=== PATIENT | male | born 1935 | race Caucasian/White ===

== ENCOUNTER 2017-02-13 07:10 | Observation (INO) ==
--- NOTE | 2017-02-13 07:27 | Emergency Department Note ---
Disposition Clinical Impression: Hypertension, Altered mental status Disposition: Admitted As Inpatient Altered Mental Status HPI - General Chief Complaint: ED Altered Mental Status Stated Complaint: confusion/staggering/slurred speech Time Seen by Provider: 02/13/17 07:20 Source: patient, family Mode of arrival: EMS Limitations: no limitations Nursing Notes Reviewed: Yes Vital Signs Reviewed: Yes - History of Present Illness HPI Narrative: Patient woke up this morning his said he was having trouble finding his words the patient says he felt off balance. He complained of a slight headache no chest pain shortness of breath or weakness is admitted to he denies having symptoms like this before. MD complaint: other (difficulty finding his words and of balance) Timing confirmed by: spouse Pain Severity: mild Consistency of Symptoms: waxing and waning Associated symptoms: Reports: denies other symptoms. Denies: chest pain, fever , nausea/vomiting, shortness of breath - Related Data Home Medications Medication Instructions Recorded Confirmed GlipiZIDE XL (24 HR) [Glucotrol XL] 5 mg PO BID 05/29/15 02/13/17 Insulin DETEMIR [Levemir] 15 unit SQ BID 05/29/15 02/13/17 Promethazine [Phenergan] 25 mg PO BID PRN 05/29/15 02/13/17 metFORMIN [Glucophage] 500 mg PO BID 05/29/15 02/13/17 Previous Rx's Medication Instructions Recorded Acetaminophen [Tylenol] 650 mg PO Q6HR PRN #30 tablet 05/22/16 Metoprolol [Lopressor] 50 mg PO BID #60 tablet 05/22/16 Oxycodone HCl/Acetaminophen 1 tab PO Q6H PRN #20 tablet 05/22/16 [Percocet 10-325 mg Tablet] Sucralfate [Carafate] 1 gm PO QIDAC #90 tablet 05/22/16 Zolpidem [Ambien] 5 mg PO HS PRN #10 tablet 05/22/16 amLODIPine [Norvasc] 10 mg PO DAILY #30 tablet 05/22/16 hydrALAZINE [HydrALAZINE] 75 mg PO TID #90 tablet 05/22/16 hydroCHLOROthiazide 12.5 mg PO DAILY #30 tablet 05/22/16 [Hydrochlorothiazide] Allergies Allergy/AdvReac Type Severity Reaction Status Date / Time morphine Allergy See Verified 02/13/17 07:37 Comments All systems ED: reviewed and negative except as stated. Review of Systems: As Per HPI Constitutional: Denies: fever, chills, weakness, weight change Eyes: Denies: eye pain, eye discharge, vision change ENT ED: Denies: ear pain, throat pain, dental pain, hearing loss, epistaxis, congestion, dysphagia Cardiovascular: Denies: chest pain, palpitations, dyspnea on exertion, edema, syncope Respiratory: Denies: cough, dyspnea, wheezes, hemoptysis, stridor Gastrointestinal: Denies: abdominal pain, nausea, vomiting, diarrhea, constipation, hematemesis, melena, hematochezia Genitourinary: Denies: urgency, dysuria, frequency, hematuria Musculoskeletal: Denies: back pain, neck pain, arthralgia, myalgia Integumentary: Denies: rash, abrasion, lesions Neurological: Denies: headache, weakness, numbness, paresthesias, confusion, abnormal gait, vertigo Psychiatric: Denies: anxiety, depression, suicidal thoughts, homicidal thoughts , auditory hallucinations, visual hallucinations Hematological/Lymphatic: Denies: easy bleeding, easy bruising Allergic/Immunologic: Denies: facial swelling, urticaria Past Medical History - Past Medical History Attestation: Yes The following information was validated with the patient. Source: patient Medical history: Reports: coronary artery disease, diabetes, GI bleed, hypertension, myocardial infarction Surgical history: Reports: cholecystectomy, other Psychiatric history: Reports: no psych history - Social History Smoking Status: Former smoker Smokeless Tobacco Status: No Alcohol use: Reports: none Drug use: Reports: none Physical Exam - General Limitations: no limitations General appearance: alert, in no apparent distress - Head Head exam: atraumatic, normocephalic, normal inspection - Eye Eye exam: Present: normal appearance, PERRL, EOMI - ENT ENT exam: normal exam, normal oropharynx, mucous membranes moist - Neck Neck exam: Present: normal inspection, full ROM, trachea midline - Chest Chest inspection: Present: normal inspection, symmetric chest wall rise - Respiratory Respiratory exam: Present: normal lung sounds bilaterally - Cardiovascular Cardiovascular exam: Present: regular rate, normal rhythm, normal heart sounds - Abdominal Exam Abdominal exam: Present: soft, Non-Tender. Absent: tenderness, distention, guarding, rebound, rigidity - Rectal Exam Rectal exam: Present: deferred - Extremities Exam Extremities exam: Present: normal inspection - Neurological Exam Neurological exam: Present: alert, oriented X3, CN II-XII intact - Expanded Neurological Exam Speech: Present: expressive aphasia (mild intermittent) Motor strength - LUE: 5/5 Motor strength - RUE: 5/5 Motor strength - LLE: 5/5 Motor strength - RLE: 5/5 - Psychiatric Psychiatric exam: Present: normal affect - Skin Skin exam: Present: warm, dry, intact. Absent: rash Course Vital Signs Temperature 97.3 F L 02/13/17 07:13 Pulse Rate 100 02/13/17 07:13 Respiratory Rate 17 02/13/17 07:13 Blood Pressure 203/129 02/13/17 07:13 O2 Sat by Pulse Oximetry 95 02/13/17 07:13 Temperature 97.9 F 02/13/17 09:47 Pulse Rate 83 02/13/17 09:47 Respiratory Rate 18 02/13/17 09:47 Blood Pressure 182/93 02/13/17 09:47 O2 Sat by Pulse Oximetry 95 02/13/17 09:47 Oxygen Delivery Oxygen Delivery Nasal Cannula Altered Mental Status - Lab Data Lab results reviewed: Yes I reviewed the patient's lab results. Result diagrams: 02/13/17 08:15 02/13/17 08:15 Lab Results 02/13/17 02/13/17 02/13/17 Range/Units 08:15 08:15 08:15 WBC 9.5 (4.3-11.1) K/mcL RBC 4.65 (4.19-5.50) M/mcL Hgb 13.8 (12.9-16.9) g/dL Hct 41.5 (37.5-50.1) % MCV 89.2 (83.0-100.0) fL MCH 29.7 (28.0-33.3) pg MCHC 33.3 (31.6-35.5) g/dL RDW 13.2 (11.5-14.5) % Plt Count 168 (140-400) K/mcL MPV 11.5 (9.4-12.4) fL Sodium 140 (136-145) mEq/L Potassium 3.7 (3.5-4.5) mEq/L Chloride 103 (98-109) mEq/L Carbon Dioxide 23 (19-29) mEq/L BUN 17 (8-26) mg/dL Creatinine 1.40 H (0.72-1.25) mg/dL Est GFR ( Amer) 59 L (> 60) Est GFR (Non-Af Amer) 49 L (> 60) BUN/Creatinine Ratio 12 (6-26) Glucose 340 H (70-99) mg/dL Calculated Osmolality 305 H (280-300) Calcium 9.0 (8.6-10.8) mg/dL Total Bilirubin 0.5 (0.2-1.2) mg/dL AST 19 (5-34) Units/L ALT 26 (0-55) Units/L Alkaline Phosphatase 47 (38-126) Units/L Troponin I 0.02 (0-0.03) ng/mL Serum Total Protein 7.3 (6.0-8.3) g/dL Albumin 3.6 (3.5-5.0) g/dL Globulin 3.7 H (2.4-3.5) g/dL Albumin/Globulin Ratio 1.0 L (1.1-2.2) Urine Color (Yellow) Urine Clarity (Clear) Urine pH (5.0-8.0) pH Units Ur Specific [place] (1.010-1.025) Urine Protein (Neg-Trace) mg/dL Urine Glucose (UA) (Normal) mg/dL Urine Ketones (Negative) mg/dL Urine Blood (Negative) Urine Nitrite (Negative) Urine Bilirubin (Negative) Urine Urobilinogen (Normal) mg/dL Ur Leukocyte Esterase (Negative) Urine Microscopic RBC (0-3) per hpf Urine Microscopic WBC Ur Squamous Epith Cells (None-Few) per lpf Urine Bacteria (None-Few) per hpf Urine Mucus (Few) Ur Culture Indicated? (NO) 02/13/17 Range/Units 08:44 WBC (4.3-11.1) K/mcL RBC (4.19-5.50) M/mcL Hgb (12.9-16.9) g/dL Hct (37.5-50.1) % MCV (83.0-100.0) fL MCH (28.0-33.3) pg MCHC (31.6-35.5) g/dL RDW (11.5-14.5) % Plt Count (140-400) K/mcL MPV (9.4-12.4) fL Sodium (136-145) mEq/L Potassium (3.5-4.5) mEq/L Chloride (98-109) mEq/L Carbon Dioxide (19-29) mEq/L BUN (8-26) mg/dL Creatinine (0.72-1.25) mg/dL Est GFR ( Amer) (> 60) Est GFR (Non-Af Amer) (> 60) BUN/Creatinine Ratio (6-26) Glucose (70-99) mg/dL Calculated Osmolality (280-300) Calcium (8.6-10.8) mg/dL Total Bilirubin (0.2-1.2) mg/dL AST (5-34) Units/L ALT (0-55) Units/L Alkaline Phosphatase (38-126) Units/L Troponin I (0-0.03) ng/mL Serum Total Protein (6.0-8.3) g/dL Albumin (3.5-5.0) g/dL Globulin (2.4-3.5) g/dL Albumin/Globulin Ratio (1.1-2.2) Urine Color Yellow (Yellow) Urine Clarity Clear (Clear) Urine pH 6.5 (5.0-8.0) pH Units Ur Specific [place] 1.015 (1.010-1.025) Urine Protein 100 H (Neg-Trace) mg/dL Urine Glucose (UA) 500 H (Normal) mg/dL Urine Ketones Negative (Negative) mg/dL Urine Blood Trace-lysed H (Negative) Urine Nitrite Negative (Negative) Urine Bilirubin Negative (Negative) Urine Urobilinogen Normal (Normal) mg/dL Ur Leukocyte Esterase Negative (Negative) Urine Microscopic RBC 0-3 (0-3) per hpf Urine Microscopic WBC Test Not Performed Ur Squamous Epith Cells Few (None-Few) per lpf Urine Bacteria Few (None-Few) per hpf Urine Mucus Few (Few) Ur Culture Indicated? NO (NO) - Radiology Data Radiology results reviewed: Yes I reviewed the patient's radiology results. - EKG Data EKG attestation: Yes I reviewed and interpreted this EKG. EKG results narrative: EKG shows a sinus rhythm with occasional PACs. Possible left ventricular hypertrophy QTc interval 375 at 426 ms respectively FL and T axis 15-9 and 10 degrees TPA Checklist - LKW: 3-4.5 hrs Add. Warnings/Precautions Patient/family understanding: The patient/family members have been counseled and understood the risk, benefit , and alternatives of treatment.
[2017-02-13] MEDS ORDERED: *HR* Labetalol 20 MG/4 ML SYRINGE IVP ONE (07:30)
[2017-02-13] MEDS ORDERED: Ondansetron 4 MG/2 ML VIAL IVP ONE (08:08)
[2017-02-13 08:23] LABS: Hematocrit 41.5 % (37.5-50.1); Hemoglobin 13.8 g/dL (12.9-16.9); Mean Corpuscular HGB Conc 33.3 g/dL (31.6-35.5); Mean Corpuscular Hemoglobin 29.7 pg (28.0-33.3); Mean Corpuscular Volume 89.2 fL (83.0-100.0); Mean Platelet Volume 11.5 fL (9.4-12.4); Platelet Count 168 K/mcL (140-400); Red Blood Count 4.65 M/mcL (4.19-5.50); Red Cell Distribution Width 13.2 % (11.5-14.5)
[2017-02-13 08:47] LABS: Albumin 3.6 g/dL (3.5-5.0); Bilirubin,Total 0.5 mg/dL (0.2-1.2); Globulin 3.7 g/dL (2.4-3.5); Potassium 3.7 mEq/L (3.5-4.5); Total Protein 7.3 g/dL (6.0-8.3)
[2017-02-13 08:50] LABS: Bilirubin,Urine Negative (Negative); Blood,Urine Trace-lysed (Negative); Clarity,Urine Clear (Clear); Color,Urine Yellow (Yellow); Glucose,Urine (UA) 500 mg/dL (Normal); Ketones,Urine Negative (Negative); Leukocyte Esterase,Urine Negative (Negative); Nitrite,Urine Negative (Negative); PH,Urine 6.5 pH Units (5.0-8.0); Protein,Urine 100 mg/dL (Neg-Trace); Specific Gravity,Urine 1.015 (1.010-1.025); Urobilinogen,Urine Normal (Normal)
[2017-02-13 08:56] LABS: Bacteria,Urine Few per hpf (None-Few); Mucus,Urine Few (Few); RBC,Urine 0-3 per hpf (0-3); Squamous Epithelial Cell,Urine Few per lpf (None-Few)
[2017-02-13] MEDS ORDERED: Naloxone 0.4 MG/ML INJ IVP PRN (09:10)
[2017-02-13] MEDS ORDERED: Acetaminophen 325 MG TABLET PO PRN (09:10)
[2017-02-13] MEDS ORDERED: 0.9 % Sodium Chloride 1,000 ML IVC SCH (09:15)
[2017-02-13] MEDS ORDERED: Ondansetron 4 MG/2 ML VIAL IVP PRN (11:19)
[2017-02-13] MEDS ORDERED: Ondansetron 4 MG/2 ML VIAL ONE (11:22)
[2017-02-13] MEDS ORDERED: *HR* Propranolol 1 MG/ML VIAL IVP ONE (14:10)
[2017-02-13] MEDS ORDERED: amLODIPine 5 MG TABLET PO STA (14:11)
--- NOTE | 2017-02-13 15:11 | Internal Med History&Physical ---
Date of Encounter: 02/13/17 Time of Encounter: 14:40 Assessment and Plan (1) Acute focal neurological deficit, onset within 3-24 hours Current visit: Yes Status: Acute Suspect due to TIA and/or hypertensive urgency. He was treated with labetalol in the emergency room. The pressure will be monitored and further intervention done as needed. (2) Hypertension Current visit: Yes Status: Chronic As above Qualifiers: Hypertension type: essential hypertension Qualified Code(s): I10 - Essential (primary) hypertension (3) Chronic kidney disease (CKD) Current visit: No Status: Chronic We will monitor renal indices as needed. Qualifiers: Chronic kidney disease stage: stage 3 (moderate) Qualified Code(s): N18.3 - Chronic kidney disease, stage 3 (moderate) (4) Diabetes Current visit: No Status: Chronic We will check hemoglobin A1c in a.m. He reports he has been out of metformin for the past 3 days. Qualifiers: Diabetes mellitus type: type 2 Diabetes mellitus complication status: with circulatory complication Diabetes mellitus complication detail: with other circulatory complications Diabetes mellitus terminal superintendent insulin use: with intermediate use Qualified Code(s): E11.59 - Type 2 diabetes mellitus with other circulatory complications; Z79.4 - residential (current) use of insulin Internal Medicine - H&P: HPI Chief complaint: Acute neurologic deficit Admitted From: Home Plans for Post Hospital Care: Home History of present illness: Mr. De Anda is a 81 year old male who came to emergency room reporting he had awakened approximately 2 AM and noted difficulty speaking. He states he knew what words he wanted to speak but had difficulty pronouncing them. He thinks he had slight difficulty understanding what his was saying to him. He felt slightly "off balance". He did not notice specific weakness of an arm or leg. He went back to bed and slept for a few hours but on awakening did not notice any improvement. He came to emergency room and was evaluated and felt to deserve admission to [facility] floor for ongoing care needs. He denies previous similar episodes. He denies large distribution strokes or seizures. He thinks his speech has essentially returned to baseline now. He denies difficulty understanding my conversation with him. Past Med Surg Social Fam HX - Past Medical History Medical history: coronary artery disease, diabetes, GI bleed, hypertension, myocardial infarction Psychiatric history: no psych history - Past Surgical History Surgical History: cholecystectomy, other - Social History Smoking Status: Former smoker Smokeless Tobacco Status: No Alcohol use: none Drug use: none Internal Medicine - H&P: Meds GlipiZIDE XL (24 HR) [Glucotrol XL] 5 mg PO BID 05/29/15 [History] Insulin DETEMIR [Levemir] 15 unit SQ BID 05/29/15 [History] Promethazine [Phenergan] 25 mg PO BID PRN 05/29/15 [History] metFORMIN [Glucophage] 500 mg PO BID 05/29/15 [History] Acetaminophen [Tylenol] 650 mg PO Q6HR PRN #30 tablet 05/22/16 [Rx] Metoprolol [Lopressor] 50 mg PO BID #60 tablet 05/22/16 [Rx] Oxycodone HCl/Acetaminophen [Percocet 10-325 mg Tablet] 1 tab PO Q6H PRN #20 tablet 05/22/16 [Rx] Sucralfate [Carafate] 1 gm PO QIDAC #90 tablet 05/22/16 [Rx] Zolpidem [Ambien] 5 mg PO HS PRN #10 tablet 05/22/16 [Rx] amLODIPine [Norvasc] 10 mg PO DAILY #30 tablet 05/22/16 [Rx] hydrALAZINE [HydrALAZINE] 75 mg PO TID #90 tablet 05/22/16 [Rx] hydroCHLOROthiazide [Hydrochlorothiazide] 12.5 mg PO DAILY #30 tablet 05/22/16 [ Rx] 3 Allergy/AdvReac Type Severity Reaction Status Date / Time morphine Allergy See Verified 02/13/17 07:37 Comments All Systems PM: A 10-system review of systems was performed and is negative for pertinent findings except as documented above in the HPI. 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 This was followed by three-vessel CABG. He denies heart failure DVT or pulmonary embolus. Respiratory: He smoked from age [age] up to 1 pack per day. He denies chronic lung disease and does not use home oxygen GI: He has had cholecystectomy. He denies disorders of his liver or exocrine pancreas : He denies hematuria dysuria or kidney stones Neurologic: As per history of present illness Endocrine: He was diagnosed with DM 2 approximately age 70. He states his blood sugars have been 200 mg percent or higher frequently recently. He has hyperlipidemia but denies thyroid disease. Hematology/oncology: He denies blood disorders cancers or anemia Psychiatric: He denies anxiety depression or other mental health issues [place] skeletal: He complains of pain in his right hip but denies significant DJD gout or other bone joint or muscle disorders. - Constitutional Vitals: Temp Pulse Resp BP Pulse Ox 97.9 F 83 18 182/93 95 02/13/17 09:47 02/13/17 09:47 02/13/17 09:47 02/13/17 09:47 02/13/17 09:47 Exam: Gen.: He is a well-developed well-nourished male resting quietly in bed who appears in no acute distress. HEENT: Head is atraumatic and normocephalic. Eyes: EOMI. There is no scleral icterus. Mouth: Mucosa is moist. Neck: Supple and nontender. There is no thyromegaly or adenopathy noted. Heart: Regular without murmurs gallops or ectopics. Lungs: No wheezes or crackles are heard. Abdomen: Soft and nontender. No masses or guarding noted. Extremities: There is no cyanosis edema or clubbing noted. Dorsalis pedis and posterior tibial pulses are trace palpable bilaterally. Neurologic: Mental status: He is talkative and a good historian. Cranial nerves : Smile is symmetric. Forehead wrinkles bilaterally. Tongue protrudes midline. EOMI. His speech is appropriate and well articulated. Motor: There is no pronator drift. Rapid finger movements are symmetric and intact bilaterally. Cerebellar: Finger to nose intact bilaterally. Skin: Warm and dry Internal Med - H&P Results - Labs CBC & Chem 7: 02/13/17 08:15 02/13/17 08:15
[2017-02-13] MEDS: *HR* Metformin 500 MG TABLET PO SCH (16:37)
[2017-02-13] MEDS: Insulin DETEMIR 100 UNIT/ML X5UNITS SQ SCH (21:25)
[2017-02-14] MEDS ORDERED: Insulin LISPRO 300 UNITS/3 ML VIAL SQ SCH ×4 (00:45→21:00)
[2017-02-14] MEDS ORDERED: amLODIPine 5 MG TABLET PO ONE (00:46)
[2017-02-14 04:59] LABS: Basophils # 0.1 K/mcL (0.0-0.2); Basophils % 1.1 %; Eosinophils # 0.3 K/mcL (0.0-0.6); Eosinophils % 3.2 %; Hematocrit 41.5 % (37.5-50.1); Immature Granulocytes % 0.3 % (0-4); Lymphocytes # 1.7 K/mcL (0.6-4.6); Lymphocytes % 17.1 %; Mean Corpuscular HGB Conc 33.7 g/dL (31.6-35.5); Mean Corpuscular Hemoglobin 29.9 pg (28.0-33.3); Mean Corpuscular Volume 88.5 fL (83.0-100.0); Mean Platelet Volume 11.2 fL (9.4-12.4); Monocytes # 0.7 K/mcL (0.0-1.3); Monocytes % 7.4 %; Neutrophils # 6.9 K/mcL (1.6-8.9); Platelet Count 179 K/mcL (140-400); Red Blood Count 4.69 M/mcL (4.19-5.50); Red Cell Distribution Width 13.3 % (11.5-14.5); Segmented Neutrophils % 70.9 %
[2017-02-14 05:16] LABS: Potassium 3.6 mEq/L (3.5-4.5)
[2017-02-14 05:38] LABS: Thyroid Stimulating Hormone 1.563 mcIU/mL (0.350-4.840)
[2017-02-14 07:22] VITALS: BP 173/93
[2017-02-14] MEDS ORDERED: amLODIPine 5 MG TABLET PO SCH ×2 (09:00→09:28)
[2017-02-14] MEDS: Insulin DETEMIR 100 UNIT/ML X5UNITS SQ SCH (09:03)
[2017-02-14] MEDS: *HR* Metformin 500 MG TABLET PO SCH (09:03)
[2017-02-14] MEDS ORDERED: Naloxone 0.4 MG/ML INJ IVP PRN (09:28)
[2017-02-14] MEDS ORDERED: Sucralfate 1 GM TABLET PO SCH (09:28)
[2017-02-14] MEDS ORDERED: Acetaminophen 325 MG TABLET PO PRN ×2 (09:28)
[2017-02-14] MEDS ORDERED: hydrALAZINE 25 MG TABLET PO SCH (09:28)
[2017-02-14] MEDS ORDERED: *HR* GlipiZIDE XL (24 HR) 2.5 MG TABLET PO SCH (09:28)
[2017-02-14] MEDS ORDERED: NON-FORMULARY MEDICATION 1 EACH EACH (Insulin Detemir 15 UNIT) SQ SCH (09:28)
[2017-02-14] MEDS ORDERED: *HR* Metformin 500 MG TABLET PO SCH ×2 (09:28→17:00)
[2017-02-14] MEDS ORDERED: hydroCHLOROthiazide 25 MG TABLET PO SCH (09:28)
[2017-02-14] MEDS ORDERED: *HR* OxyCODONE/APAP 10/325 TABLET PO PRN (09:28)
[2017-02-14] MEDS ORDERED: Ondansetron 4 MG/2 ML VIAL IVP PRN (09:28)
--- NOTE | 2017-02-14 10:24 | Discharge Summary ---
Date of Encounter: 02/14/17 Time of Encounter: 10:05 - Discharge Diagnosis (1) Acute focal neurological deficit, onset within 3-24 hours Priority: Primary Status: Resolved (2) Hypertension Priority: Secondary Status: Chronic Qualifiers: Hypertension type: essential hypertension Qualified Code(s): I10 - Essential (primary) hypertension (3) Chronic kidney disease (CKD) Priority: Secondary Status: Chronic Qualifiers: Chronic kidney disease stage: stage 3 (moderate) Qualified Code(s): N18.3 - Chronic kidney disease, stage 3 (moderate) (4) Diabetes Priority: Secondary Status: Chronic Qualifiers: Diabetes mellitus type: type 2 Diabetes mellitus complication status: with circulatory complication Diabetes mellitus complication detail: with other circulatory complications Diabetes mellitus intermediate insulin use: with long distance operator use Qualified Code(s): E11.59 - Type 2 diabetes mellitus with other circulatory complications; Z79.4 - manager long term care (current) use of insulin - Discharge Medications Prescriptions: Amlodipine Besylate 10 mg PO DAILY #30 tablet Clopidogrel [Plavix] 75 mg PO DAILY #30 tab Doxazosin Mesylate [Cardura] 2 mg PO HS #30 tablet metFORMIN [Glucophage] 500 mg PO BID #60 Metoprolol [Lopressor] 100 mg PO BID #60 tablet Home Medications: GlipiZIDE XL (24 HR) [Glucotrol XL] 5 mg PO BID 05/29/15 [History] Insulin DETEMIR [Levemir] 15 unit SQ BID 05/29/15 [History] Promethazine [Phenergan] 25 mg PO BID PRN 05/29/15 [History] Acetaminophen [Tylenol] 650 mg PO Q6HR PRN #30 tablet 05/22/16 [Rx] Oxycodone HCl/Acetaminophen [Percocet 10-325 mg Tablet] 1 tab PO Q6H PRN #20 tablet 05/22/16 [Rx] Sucralfate [Carafate] 1 gm PO QIDAC #90 tablet 05/22/16 [Rx] Zolpidem [Ambien] 5 mg PO HS PRN #10 tablet 05/22/16 [Rx] hydroCHLOROthiazide [Hydrochlorothiazide] 12.5 mg PO DAILY #30 tablet 05/22/16 [ Rx] Amlodipine Besylate 10 mg PO DAILY #30 tablet 02/14/17 [Rx] Clopidogrel [Plavix] 75 mg PO DAILY #30 tab 02/14/17 [Rx] Doxazosin Mesylate [Cardura] 2 mg PO HS #30 tablet 02/14/17 [Rx] Metoprolol [Lopressor] 100 mg PO BID #60 tablet 02/14/17 [Rx] metFORMIN [Glucophage] 500 mg PO BID #60 02/14/17 [Rx] Allergies/Adverse Reactions: 3 Allergy/AdvReac Type Severity Reaction Status Date / Time morphine Allergy See Verified 02/13/17 07:37 Comments Date of admission: 02/13/17 09:11 Primary care physician: Pratibha Covarrubias Consults: 02/13/17 10:26 Consult to Registered Nurse Step Down [CONS] Routine Reason for SW Consult: discharge plannning - Patient Status Disposition: Home, Self-Care Condition: Good Overall status at discharge: patient is progressing back to baseline - Discharge Instructions Follow Up With: Pratibha Covarrubias MD [Primary Care Provider] - 1 week - Diet and Activity Activity: resume usual activities as tolerated Diet: diabetic diet Hospital course: Mr. De Anda is a 81 year old male who came to emergency room reporting he had awakened approximately 2 AM and noted difficulty speaking. He states he knew what words he wanted to speak but had difficulty pronouncing them. He thinks he had slight difficulty understanding what his was saying to him. He felt slightly "off balance". He did not notice specific weakness of an arm or leg. He went back to bed and slept for a few hours but on awakening did not notice any improvement. He came to emergency room and was evaluated and felt to deserve admission to [facility] for ongoing care needs. Initial orders were written by the emergency room physician. I saw him on February 13 performed history and physical. He was given labetalol in the emergency room. I restarted him on amlodipine. Metoprolol was continued as that home. His blood pressure improved but remained above desirable range. He will be started on doxazosin at discharge. He will also restart hydrochlorothiazide 12.5 mg daily. Metoprolol dose will be increased to 100 mg twice a day. Hydralazine will be discontinued. He was given Plavix because of his reported neurologic deficit. He will continue this at discharge. His PCP can determine if this should be continued indefinitely. Hemoglobin A1c was ordered with results pending at time of this dictation. He was restarted on metformin with prescription given at discharge. He will follow with his PCP Dr. Covarrubias within 1 week. - Time Spent with Patient Total time spent providing and/or coordinating discharge services: - Constitutional Vitals: Temp Pulse Resp BP Pulse Ox 98.8 F 88 20 173/93 92 02/14/17 07:19 02/14/17 07:19 02/14/17 07:19 02/14/17 07:19 02/14/17 07:19
[2017-02-14 17:23] LABS: Hemoglobin A1C 9.3 %
[2017-02-14] MEDS ORDERED: Insulin DETEMIR 100 UNIT/ML X5UNITS SQ SCH (21:00)
[2017-02-15] MEDS ORDERED: amLODIPine 5 MG TABLET PO SCH (09:00)
--- NOTE | 2017-02-15 17:19 | Electrocardiograph Report ---
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
== END 2017-02-14 11:10 | disposition home or self-care (01) ==
LOC: INPPIK 07:10 → EMEROOPIK 07:10 → INPPIK 09:44
PROVIDERS: ADMIT Internal Medicine; ATTEND Internal Medicine

== ENCOUNTER 2017-03-07 18:01 | Observation (INO) ==
[2017-03-07 19:00] LABS: Basophils # 0.1 K/mcL (0.0-0.2); Basophils % 0.7 %; Eosinophils % 0.4 %; Hematocrit 39.7 % (37.5-50.1); Hemoglobin 13.8 g/dL (12.9-16.9); Immature Granulocytes % 0.3 % (0-4); Lymphocytes # 1.4 K/mcL (0.6-4.6); Lymphocytes % 14.8 %; Mean Corpuscular HGB Conc 34.8 g/dL (31.6-35.5); Mean Corpuscular Hemoglobin 30.2 pg (28.0-33.3); Mean Corpuscular Volume 86.9 fL (83.0-100.0); Mean Platelet Volume 10.8 fL (9.4-12.4); Monocytes # 0.5 K/mcL (0.0-1.3); Monocytes % 5.6 %; Neutrophils # 7.4 K/mcL (1.6-8.9); Platelet Count 199 K/mcL (140-400); Red Blood Count 4.57 M/mcL (4.19-5.50); Red Cell Distribution Width 13.2 % (11.5-14.5); Segmented Neutrophils % 78.2 %
--- NOTE | 2017-03-07 19:07 | Emergency Department Note ---
Disposition Clinical Impression: Weakness, Dyspnea Disposition: Admitted As Inpatient Condition: Good Weakness HPI - General Chief complaint: ED Weakness Stated complaint: weakness, sob Time Seen by Provider: 03/07/17 18:12 Source: patient Mode of arrival: ambulatory Limitations: physical limitation Nursing Notes Reviewed: Yes Vital Signs Reviewed: Yes - History of Present Illness HPI Narrative: Patient presents to emergency room with increasing shortness of breath denies no chest pain but then said he had some chest pressure patient states that he is weak from the knees distally he denies fever chills lightheadedness dizziness any diarrhea melena hematochezia or hematemesis states that he has had no cough he has had no cold symptoms denies any blurred vision double vision loss vision patient states though that he has just no strength is having loose stool he has had some nausea but no vomiting here in the emergency room bowel movement prior to arrival he is continent at this time he has some edema of the lower extremities which appears to be chronic is having chronic pain patient denies any additional complaints at this time Pt Subjective Complaint: generalized weakness/fatigue 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 Denies: chest pain, confusion, dark stools, diaphoresis, dysuria, easy bruising, fever/chills, headaches, loss of appetite, nausea/vomiting, myalgias, rash, syncope - Related Data Home Medications Medication Instructions Recorded Confirmed GlipiZIDE XL (24 HR) [Glucotrol XL] 5 mg PO BID 05/29/15 02/13/17 Insulin DETEMIR [Levemir] 15 unit SQ BID 05/29/15 02/13/17 Promethazine [Phenergan] 25 mg PO BID PRN 05/29/15 02/13/17 Previous Rx's Medication Instructions Recorded Acetaminophen [Tylenol] 650 mg PO Q6HR PRN #30 tablet 05/22/16 Oxycodone HCl/Acetaminophen 1 tab PO Q6H PRN #20 tablet 05/22/16 [Percocet 10-325 mg Tablet] Sucralfate [Carafate] 1 gm PO QIDAC #90 tablet 12/16/16 Zolpidem [Ambien] 5 mg PO HS PRN #10 tablet 05/22/16 hydroCHLOROthiazide 12.5 mg PO DAILY #30 tablet 05/22/16 [Hydrochlorothiazide] Amlodipine Besylate 10 mg PO DAILY #30 tablet 02/14/17 Clopidogrel [Plavix] 75 mg PO DAILY #30 tab 02/14/17 Doxazosin Mesylate [Cardura] 2 mg PO HS #30 tablet 02/14/17 Metoprolol [Lopressor] 100 mg PO BID #60 tablet 02/14/17 metFORMIN [Glucophage] 500 mg PO BID #60 02/14/17 Allergies Allergy/AdvReac Type Severity Reaction Status Date / Time morphine Allergy See Verified 02/13/17 07:37 Comments All systems ED: reviewed and negative except as stated. Review of Systems: As Per HPI Constitutional: Reports: weakness. Denies: fever, chills Eyes: Denies: eye pain, eye discharge ENT ED: Denies: ear pain, throat pain Cardiovascular: Reports: dyspnea on exertion. Denies: chest pain, palpitations Respiratory: Reports: dyspnea. Denies: cough, wheezes Gastrointestinal: Denies: abdominal pain, nausea, vomiting Genitourinary: Denies: urgency, dysuria, frequency Musculoskeletal: Denies: back pain, neck pain Integumentary: Denies: rash, abrasion Neurological: Reports: weakness, abnormal gait. Denies: headache Psychiatric: Denies: anxiety, depression Endocrine: Reports: fatigue Hematological/Lymphatic: Denies: easy bleeding Allergic/Immunologic: Denies: facial swelling Past Medical History - Past Medical History Attestation: Yes The following information was validated with the patient. Source: patient, old records reviewed, nursing notes reviewed Medical history: Reports: coronary artery disease, diabetes, GI bleed, hypertension, myocardial infarction Surgical history: Reports: cholecystectomy, other Psychiatric history: Reports: no psych history - Social History Smoking Status: Former smoker Smokeless Tobacco Status: No Alcohol use: Reports: none Drug use: Reports: none Physical Exam - General Limitations: physical limitation ([place]) General appearance: alert, in no apparent distress - Head Head exam: atraumatic, normocephalic, normal inspection - Eye Eye exam: Present: normal appearance, PERRL, EOMI - ENT ENT exam: normal exam, normal oropharynx, mucous membranes moist, normal external ear exam - Neck Neck exam: Present: normal inspection, full ROM, trachea midline - Chest Chest inspection: Present: normal inspection, symmetric chest wall rise - Respiratory Respiratory exam: Present: normal lung sounds bilaterally, prolonged expiratory phase. Absent: wheezes - Cardiovascular Cardiovascular exam: Present: regular rate, normal rhythm, normal heart sounds - Abdominal Exam Abdominal exam: Present: soft, Non-Tender, normal bowel sounds. Absent: mass, pulsatile mass - Extremities Exam Extremities exam: Present: normal inspection, full ROM, normal capillary refill , pedal edema. Absent: tenderness, joint swelling, calf tenderness - Expanded Upper Extremity Exam Shoulder exam: Present: normal inspection, full ROM Arm exam: Present: normal inspection, full ROM Elbow exam: Present: normal inspection, full ROM Forearm/Wrist exam: Present: normal inspection, full ROM Hand exam: Present: normal inspection, full ROM Neurosensory exam: Normal: radial nerve, ulnar nerve, median nerve Vascular exam: Normal: capillary refill, radial pulse, ulnar pulse - Expanded Lower Extremity Exam Hip/Pelvis exam: Present: normal inspection, full ROM Upper leg exam: Present: normal inspection, full ROM Knee exam: Present: normal inspection, full ROM Lower leg exam: Present: normal inspection, full ROM, swelling. Absent: Homans ' sign Ankle exam: Present: normal inspection, full ROM, swelling Foot/toe exam: Present: normal inspection, full ROM, swelling Neurovascular/Tendon exam: Present: normal capillary refill, normal fine/light touch. Absent: motor deficit, sensory deficit, tendon deficit Gait: other (Weight transfer) - Back Exam Back exam: Present: normal inspection, full ROM. Absent: muscle spasm - Neurological Exam Neurological exam: Present: alert, oriented X3, CN II-XII intact - Psychiatric Psychiatric exam: Present: normal affect, normal mood - Skin Skin exam: Present: warm, dry, intact, normal color Course Course Narrative: Patient immediately seen and examined patient was taken to radiology after he had a large bowel movement here in the emergency room patient was continued to be monitoring revealing no further weakness or any focal weakness all of it. More global type fact patient then was able to ambulate transverse to the bedside commode patient was then admitted transferred to [facility] stable Vital Signs Temperature 97.9 F 03/07/17 18:02 Pulse Rate 108 03/07/17 18:02 Respiratory Rate 18 03/07/17 18:02 Blood Pressure 203/118 03/07/17 18:02 O2 Sat by Pulse Oximetry 94 03/07/17 18:02 Temperature 97.6 F 03/07/17 23:36 Pulse Rate 104 03/07/17 23:36 Respiratory Rate 18 03/07/17 23:36 Blood Pressure 209/88 03/07/17 23:36 O2 Sat by Pulse Oximetry 93 03/07/17 23:36 Oxygen Delivery Oxygen Delivery Nasal Cannula Weakness - Differential Diagnosis Differential Diagnosis: Likely: acute myocardial infarction, hypoglycemia, dehydration, medication effect, stroke, metabolic - Medical Records Medical records reviewed: Yes I reviewed the patient's medical records. - Lab Data Lab results reviewed: Yes I reviewed the patient's lab results. Result diagrams: 03/07/17 18:51 03/07/17 18:51 Lab Results 03/07/17 03/07/17 03/07/17 Range/Units 18:51 18:51 18:51 WBC 9.5 (4.3-11.1) K/mcL RBC 4.57 (4.19-5.50) M/mcL Hgb 13.8 (12.9-16.9) g/dL Hct 39.7 (37.5-50.1) % MCV 86.9 (83.0-100.0) fL MCH 30.2 (28.0-33.3) pg MCHC 34.8 (31.6-35.5) g/dL RDW 13.2 (11.5-14.5) % Plt Count 199 (140-400) K/mcL MPV 10.8 (9.4-12.4) fL Immature Gran % 0.3 (0-4) % Seg Neutrophils % 78.2 % Lymphocytes % 14.8 % Monocytes % 5.6 % Eosinophils % 0.4 % Basophils % 0.7 % Neutrophils # 7.4 (1.6-8.9) K/mcL Lymphocytes # 1.4 (0.6-4.6) K/mcL Monocytes # 0.5 (0.0-1.3) K/mcL Eosinophils # 0.0 (0.0-0.6) K/mcL Basophils # 0.1 (0.0-0.2) K/mcL PT 12.7 H (9.4-12.1) Seconds INR 1.2 APTT 32.2 (26.0-36.0) Seconds D-Dimer 493 (0-500) ng/mLFEU Sodium 139 (136-145) mEq/L Potassium 3.4 L (3.5-4.5) mEq/L Chloride 106 (98-109) mEq/L Carbon Dioxide 20 (19-29) mEq/L BUN 12 (8-26) mg/dL Creatinine 1.13 (0.72-1.25) mg/dL Est GFR ( Amer) > 60 (> 60) Est GFR (Non-Af Amer) > 60 (> 60) BUN/Creatinine Ratio 11 (6-26) Glucose 221 H (70-99) mg/dL Calculated Osmolality 295 (280-300) Calcium 9.0 (8.6-10.8) mg/dL Troponin I (0-0.03) ng/mL B-Natriuretic Peptide (0-100) pg/mL TSH 0.538 (0.350-4.840) mcIU/mL 03/07/17 03/07/17 Range/Units 18:51 18:51 WBC (4.3-11.1) K/mcL RBC (4.19-5.50) M/mcL Hgb (12.9-16.9) g/dL Hct (37.5-50.1) % MCV (83.0-100.0) fL MCH (28.0-33.3) pg MCHC (31.6-35.5) g/dL RDW (11.5-14.5) % Plt Count (140-400) K/mcL MPV (9.4-12.4) fL Immature Gran % (0-4) % Seg Neutrophils % % Lymphocytes % % Monocytes % % Eosinophils % % Basophils % % Neutrophils # (1.6-8.9) K/mcL Lymphocytes # (0.6-4.6) K/mcL Monocytes # (0.0-1.3) K/mcL Eosinophils # (0.0-0.6) K/mcL Basophils # (0.0-0.2) K/mcL PT (9.4-12.1) Seconds INR APTT (26.0-36.0) Seconds D-Dimer (0-500) ng/mLFEU Sodium (136-145) mEq/L Potassium (3.5-4.5) mEq/L Chloride (98-109) mEq/L Carbon Dioxide (19-29) mEq/L BUN (8-26) mg/dL Creatinine (0.72-1.25) mg/dL Est GFR ( Amer) (> 60) Est GFR (Non-Af Amer) (> 60) BUN/Creatinine Ratio (6-26) Glucose (70-99) mg/dL Calculated Osmolality (280-300) Calcium (8.6-10.8) mg/dL Troponin I 0.02 (0-0.03) ng/mL B-Natriuretic Peptide 319 H (0-100) pg/mL TSH (0.350-4.840) mcIU/mL - Radiology Data Radiology results reviewed: Yes I reviewed the patient's radiology results. ITS Impressions Chest X-Ray 03/07/17 18:33 IMPRESSION: Left basilar atelectasis, otherwise no acute cardiopulmonary process. D/ / Luke Santana MD / Luke Santana MD Interpreting Provider: Luke Santana MD Head CT 03/07/17 18:34 IMPRESSION: No acute intracranial abnormality. D/ / Matt Silver MD / Matt Silver MD Interpreting Provider: Matt Silver MD Impressions Chest X-Ray 03/07/17 18:33 IMPRESSION: Left basilar atelectasis, otherwise no acute cardiopulmonary process. D/ / Luke Santana MD / Luke Santana MD Interpreting Provider: Luke Santana MD Head CT 03/07/17 18:34 IMPRESSION: No acute intracranial abnormality. D/ / Matt Silver MD / Matt Silver MD Interpreting Provider: Matt Silver MD Chest CTA 03/07/17 19:57 IMPRESSION: Limited exam with no definite scan evidence for pulmonary embolus or other acute cardiopulmonary abnormality. D/ / Emmett Lara MD / Emmett Lara MD Interpreting Provider: Emmett Laar MD - EKG Data EKG attestation: Yes I reviewed and interpreted this EKG. EKG results narrative: Sinus tach nonspecific T-wave rate 104PR 173 QRS 97 QT 348 Critical Care Time Critical Care Time: No
[2017-03-07 19:10] LABS: Activated Partial Thrombo Time 32.2 Seconds (26.0-36.0)
[2017-03-07 19:15] LABS: BUN/Creatinine Ratio 11 (6-26); Blood Urea Nitrogen 12 mg/dL (8-26); Carbon Dioxide 20 mEq/L (19-29); Chloride 106 mEq/L (98-109); Glucose 221 mg/dL (70-99); Osmolality,Calculated 295 (280-300); Potassium 3.4 mEq/L (3.5-4.5); Sodium 139 mEq/L (136-145); eGFR For African Americans > 60 (> 60); eGFR For Non-African Americans > 60 (> 60)
[2017-03-07 19:37] LABS: Thyroid Stimulating Hormone 0.538 mcIU/mL (0.350-4.840)
[2017-03-07] MEDS ORDERED: Potassium Effervescent 25 MEQ TABLET.EFF PO ONE (19:42)
[2017-03-07 19:52] LABS: INR 1.2; Prothrombin Time 12.7 Seconds (9.4-12.1)
[2017-03-07] MEDS ORDERED: *HR* OxyCODONE/APAP 5/325 TABLET PO ONE (20:54)
[2017-03-07] MEDS ORDERED: *HR* Promethazine 25 MG/ML VIAL IVP ONE (20:54)
[2017-03-07] MEDS ORDERED: Ipratropium/Albuterol Neb 3 ML IH ONE (22:09)
[2017-03-07] MEDS ORDERED: cloNIDine HCl 0.1 MG TABLET PO STA (22:41)
[2017-03-07 22:42] LABS: Bilirubin,Urine Negative (Negative); Blood,Urine Trace-lysed (Negative); Clarity,Urine Clear (Clear); Color,Urine Yellow (Yellow); Glucose,Urine (UA) 250 mg/dL (Normal); Ketones,Urine Negative (Negative); Leukocyte Esterase,Urine Negative (Negative); Nitrite,Urine Negative (Negative); Protein,Urine 100 mg/dL (Neg-Trace); Specific Gravity,Urine 1.015 (1.010-1.025); Urobilinogen,Urine Normal (Normal)
[2017-03-07 22:50] LABS: Bacteria,Urine Few per hpf (None-Few); Hyaline Casts,Urine Few per lpf (None-Few); RBC,Urine 0-3 per hpf (0-3); Squamous Epithelial Cell,Urine Few per lpf (None-Few); WBC,Urine 0-3 per hpf (0-3)
[2017-03-07] MEDS ORDERED: D5% in Water 1,000 ML IVC PRN (23:53)
[2017-03-07] MEDS ORDERED: *HR* Dextrose 50 % in Water (Syg) 50 ML SYRINGE IVP PRN (23:53)
[2017-03-07] MEDS ORDERED: Ondansetron ODT 4 MG TAB.RAPDIS SL PRN (23:53)
[2017-03-07] MEDS ORDERED: Dextrose Gel 15 GM PO PRN ×2 (23:53)
[2017-03-07] MEDS ORDERED: Naloxone 0.4 MG/ML INJ IVP PRN (23:53)
[2017-03-08 07:17] LABS: Basophils # 0.1 K/mcL (0.0-0.2); Basophils % 0.9 %; Eosinophils # 0.1 K/mcL (0.0-0.6); Eosinophils % 1.1 %; Hematocrit 38.9 % (37.5-50.1); Hemoglobin 13.1 g/dL (12.9-16.9); Immature Granulocytes % 0.2 % (0-4); Mean Corpuscular HGB Conc 33.7 g/dL (31.6-35.5); Mean Corpuscular Hemoglobin 29.8 pg (28.0-33.3); Mean Corpuscular Volume 88.6 fL (83.0-100.0); Mean Platelet Volume 10.9 fL (9.4-12.4); Monocytes # 0.6 K/mcL (0.0-1.3); Monocytes % 6.6 %; Neutrophils # 6.8 K/mcL (1.6-8.9); Platelet Count 180 K/mcL (140-400); Red Blood Count 4.39 M/mcL (4.19-5.50); Red Cell Distribution Width 13.2 % (11.5-14.5); Segmented Neutrophils % 70.2 %
[2017-03-08 07:18] LABS: INR 1.2; Prothrombin Time 12.6 Seconds (9.4-12.1)
[2017-03-08 07:21] LABS: Activated Partial Thrombo Time 31.3 Seconds (26.0-36.0)
[2017-03-08] MEDS ORDERED: Ondansetron ODT 4 MG TAB.RAPDIS SL PRN ×2 (07:32→08:00)
[2017-03-08] MEDS ORDERED: Ondansetron 4 MG/2 ML VIAL IVP PRN (07:38)
[2017-03-08] MEDS: *HR* OxyCODONE/APAP 5/325 TABLET PO PRN ×2 (07:47→11:48)
[2017-03-08] MEDS: Insulin LISPRO 300 UNITS/3 ML VIAL SQ SCH ×2 (07:47→11:47)
[2017-03-08 09:27] LABS: BUN/Creatinine Ratio 9 (6-26); Blood Urea Nitrogen 13 mg/dL (8-26); Calcium 8.8 mg/dL (8.6-10.8); Carbon Dioxide 23 mEq/L (19-29); Chloride 104 mEq/L (98-109); Glucose 238 mg/dL (70-99); Osmolality,Calculated 296 (280-300); Potassium 3.8 mEq/L (3.5-4.5); Sodium 139 mEq/L (136-145); eGFR For African Americans > 60 (> 60); eGFR For Non-African Americans 50 (> 60)
[2017-03-08 10:40] VITALS: BP 171/94
--- NOTE | 2017-03-08 11:12 | Internal Med History&Physical ---
Date of Encounter: 03/08/17 Time of Encounter: 10:45 Assessment and Plan (1) CHF (congestive heart failure) Current visit: No Status: Chronic He will be started back on HCTZ. Supplemental potassium will be given. I will also start him on isosorbide and give him Nitrostat for prn use. Qualifiers: Congestive heart failure type: diastolic Congestive heart failure chronicity: acute Qualified Code(s): I50.31 - Acute diastolic (congestive) heart failure (2) Hypertension Current visit: No Status: Chronic Blood pressures are not well controlled but he has stopped use of most of his antihypertension medications. I will restart HCTZ and Cardura and continue metoprolol. Qualifiers: Hypertension type: essential hypertension Qualified Code(s): I10 - Essential (primary) hypertension Internal Medicine - H&P: HPI Chief complaint: Dyspnea Admitted From: Home Plans for Post Hospital Care: Home History of present illness: Mr. De Anda is a 82 year old male who came to emergency room stating he had increasing dyspnea over the past week. He had an occasional discomfort in his chest. He also felt he had weakness in his lower legs bilaterally. He was evaluated in emergency room and admitted to [facility] floor for ongoing care needs. He states his dyspnea has improved now. He admits he has not been taking hydrochlorothiazide on a regular basis at home. He is also not been taking amlodipine and doxazosin. Does not check blood pressures at home. 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 Echocardiogram 05/18/2016 showed LVEF of 60% with reported mild LV diastolic dysfunction although E/A ratio was 1.1. There was moderate LAE at 4.9 cm diameter, mild to moderate AI, mild aortic gnosis, and at least mild MR. He denies DVT or pulmonary embolus. Past Med Surg Social Fam HX - Past Medical History Medical history: coronary artery disease, diabetes, GI bleed, hypertension, myocardial infarction Psychiatric history: no psych history - Past Surgical History Surgical History: cholecystectomy, other - Social History Smoking Status: Former smoker Smokeless Tobacco Status: No Alcohol use: none Drug use: none Internal Medicine - H&P: Meds GlipiZIDE XL (24 HR) [Glucotrol XL] 5 mg PO BID 05/29/15 [History] Insulin DETEMIR [Levemir] 15 unit SQ BID 05/29/15 [History] Promethazine [Phenergan] 25 mg PO BID PRN 05/29/15 [History] Acetaminophen [Tylenol] 650 mg PO Q6HR PRN #30 tablet 05/22/16 [Rx] Oxycodone HCl/Acetaminophen [Percocet 10-325 mg Tablet] 1 tab PO Q6H PRN #20 tablet 05/22/16 [Rx] Sucralfate [Carafate] 1 gm PO QIDAC #90 tablet 05/22/16 [Rx] Zolpidem [Ambien] 5 mg PO HS PRN #10 tablet 05/22/16 [Rx] hydroCHLOROthiazide [Hydrochlorothiazide] 12.5 mg PO DAILY #30 tablet 05/22/16 [ Rx] Amlodipine Besylate 10 mg PO DAILY #30 tablet 02/14/17 [Rx] Clopidogrel [Plavix] 75 mg PO DAILY #30 tab 02/14/17 [Rx] Doxazosin Mesylate [Cardura] 2 mg PO HS #30 tablet 02/14/17 [Rx] Metoprolol [Lopressor] 100 mg PO BID #60 tablet 02/14/17 [Rx] metFORMIN [Glucophage] 500 mg PO BID #60 02/14/17 [Rx] 3 Allergy/AdvReac Type Severity Reaction Status Date / Time morphine Allergy See Verified 02/13/17 07:37 Comments All Systems PM: A 10-system review of systems was performed and is negative for pertinent findings except as documented above in the HPI. Review of systems: He is systems from his February 2017 [facility] hospital stay were reviewed and revised as below. Gen.: His weight has decreased from 87.77 kg on 02/14/2017 to 82.299 kg today. Cardiovascular: As per history of present illness Respiratory: He smoked from age [age] up to 1 pack per day. He denies chronic lung disease and does not use home oxygen GI: He has had cholecystectomy. He denies disorders of his liver or exocrine pancreas : He denies hematuria dysuria or kidney stones Neurologic: He was hospitalized February 2017 at [facility] with probable TIA. He had full recovery without recurrence. He denies large distribution strokes or seizures. Endocrine: He was diagnosed with DM 2 approximately age 70. He has hyperlipidemia but denies thyroid disease. Hematology/oncology: He denies blood disorders cancers or anemia Psychiatric: He denies anxiety depression or other mental health issues Musk skeletal: He complains of pain in his right hip which has been present for approximately 4 weeks following a fall off a stool at [facility] when he was visiting his . He reports x-rays were negative. He denies significant DJD gout or other bone joint or muscle disorders. - Constitutional Vitals: Temp Pulse Resp BP Pulse Ox 97.8 F 91 17 171/94 96 03/08/17 10:40 03/08/17 10:40 03/08/17 10:40 03/08/17 10:40 03/08/17 10:40 Exam: Gen.: He is a well-developed well-nourished male lying in bed who appears in no acute distress HEENT: Head is atraumatic and normocephalic. Eyes: EOMI. There is no scleral icterus. Mouth: Mucosa is moist. Neck: Supple and nontender. There is no thyromegaly or adenopathy noted. Heart: Regular without murmurs gallops or ectopics with rate approximately 100/ m Lungs: No wheezes or crackles are heard. Abdomen: Soft and nontender. No masses or guarding are noted. Extremities: There is no cyanosis edema or clubbing noted. Dorsalis pedis and posttibial pulses are trace to 1+ palpable bilaterally. Neurologic: Mental status: He is talkative and a good historian. Cranial nerves : Smile is symmetric. Forehead wrinkles bilaterally. Tongue protrudes midline. EOMI. Motor: There is no pronator drift. Cerebellar: Finger to nose is intact bilaterally. Skin: Warm and dry Internal Med - H&P Results - Labs CBC & Chem 7: 03/08/17 07:05 03/08/17 07:05 Labs: Short CBC 03/08/17 Range/Units 07:05 WBC 9.7 (4.3-11.1) K/mcL Hgb 13.1 (12.9-16.9) g/dL Hct 38.9 (37.5-50.1) % Plt Count 180 (140-400) K/mcL Neutrophils # 6.8 (1.6-8.9) K/mcL BMP 03/08/17 07:05 Sodium 139 Potassium 3.8 Chloride 104 Carbon Dioxide 23 BUN 13 Creatinine 1.37 H Glucose 238 H Calcium 8.8 Cardiac Enzymes 03/08/17 03/08/17 Range/Units 01:17 07:05 Troponin I 0.03 0.02 (0-0.03) ng/mL Urine 03/07/17 Range/Units 22:34 Urine Color Yellow (Yellow) Urine Clarity Clear (Clear) Urine pH 7.0 (5.0-8.0) pH Units Ur Specific Sharon 1.015 (1.010-1.025) Urine Protein 100 H (Neg-Trace) mg/dL Urine Glucose (UA) 250 H (Normal) mg/dL
--- NOTE | 2017-03-08 11:39 | Discharge Summary ---
Date of Encounter: 03/08/17 Time of Encounter: 10:45 - Discharge Diagnosis (1) CHF (congestive heart failure) Priority: Primary Status: Chronic Qualifiers: Congestive heart failure type: diastolic Congestive heart failure chronicity: acute Qualified Code(s): I50.31 - Acute diastolic (congestive) heart failure (2) Hypertension Priority: Secondary Status: Chronic Qualifiers: Hypertension type: essential hypertension Qualified Code(s): I10 - Essential (primary) hypertension - Discharge Medications Prescriptions: Doxazosin Mesylate [Cardura] 2 mg PO HS #60 tablet Isosorbide MONOnitrate (24 HR) [Imdur] 30 mg PO DAILY #30 tab.er.24h Nitroglycerin [Nitrostat] 0.4 mg SL Q5M #1 vial Potassium Chloride 10 meq PO DAILY #30 tab.er.prt Home Medications: GlipiZIDE XL (24 HR) [Glucotrol XL] 5 mg PO BID 05/29/15 [History] Insulin DETEMIR [Levemir] 15 unit SQ BID 05/29/15 [History] Promethazine [Phenergan] 25 mg PO BID PRN 05/29/15 [History] Acetaminophen [Tylenol] 650 mg PO Q6HR PRN #30 tablet 05/22/16 [Rx] Oxycodone HCl/Acetaminophen [Percocet 10-325 mg Tablet] 1 tab PO Q6H PRN #20 tablet 05/22/16 [Rx] Sucralfate [Carafate] 1 gm PO QIDAC #90 tablet 05/22/16 [Rx] Zolpidem [Ambien] 5 mg PO HS PRN #10 tablet 05/22/16 [Rx] hydroCHLOROthiazide [Hydrochlorothiazide] 12.5 mg PO DAILY #30 tablet 05/22/16 [ Rx] Clopidogrel [Plavix] 75 mg PO DAILY #30 tab 02/14/17 [Rx] Metoprolol [Lopressor] 100 mg PO BID #60 tablet 02/14/17 [Rx] metFORMIN [Glucophage] 500 mg PO BID #60 02/14/17 [Rx] Doxazosin Mesylate [Cardura] 2 mg PO HS #60 tablet 03/08/17 [Rx] Isosorbide MONOnitrate (24 HR) [Imdur] 30 mg PO DAILY #30 tab.er.24h 03/08/17 [ Rx] Nitroglycerin [Nitrostat] 0.4 mg SL Q5M #1 vial 03/08/17 [Rx] Potassium Chloride 10 meq PO DAILY #30 tab.er.prt 03/08/17 [Rx] Allergies/Adverse Reactions: 3 Allergy/AdvReac Type Severity Reaction Status Date / Time morphine Allergy See Verified 02/13/17 07:37 Comments Date of admission: 03/07/17 22:33 Primary care physician: Pratibha Wade - Patient Status Disposition: Home, Self-Care Condition: Good Functional capacity at discharge: uses cane/walker Overall status at discharge: patient is progressing back to baseline - Discharge Instructions Follow Up With: Pratibha Covarrubias MD [Primary Care Provider] - 1 week - Diet and Activity Activity: resume usual activities as tolerated Diet: advance to your usual diet Hospital course: Mr. De Anda is a 82 year old male who came to emergency room stating he had increasing dyspnea over the past week. He had an occasional discomfort in his chest. He also felt he had weakness in his lower legs bilaterally. He was evaluated in emergency room and admitted to [facility] for ongoing care needs. He states his dyspnea has improved now. He admits he has not been taking hydrochlorothiazide on a regular basis at home. He is also not been taking amlodipine and doxazosin. Does not check blood pressures at home. 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 Echocardiogram 05/18/2016 showed LVEF of 60% with reported mild LV diastolic dysfunction although E/A ratio was 1.1. There was moderate LAE at 4.9 cm diameter, mild to moderate AI, mild aortic gnosis, and at least mild MR. He denies DVT or pulmonary embolus. The patient was admitted to [facility] floor. Initial orders were written by the emergency room physician. I saw him on March 08 and performed a history physical and discharge. He was started back on HCTZ. I also started him on isosorbide, potassium supplement, and increased doxazosin to better control blood pressure. Nitrostat was given for prn use. I encouraged him to not discontinue medications on his own. When I saw him he felt improved and wished to be discharged home. He will follow with his PCP within one week. - Time Spent with Patient Total time spent providing and/or coordinating discharge services: - Constitutional Vitals: Temp Pulse Resp BP Pulse Ox 97.8 F 91 17 171/94 96 03/08/17 10:40 03/08/17 10:40 03/08/17 10:40 03/08/17 10:40 03/08/17 10:40
[2017-03-08] MEDS ORDERED: FLUARIX QUAD 2017-18 36MOS UP/PF 0.5 ML SYRINGE IM ONE (12:46)
--- NOTE | 2017-03-08 17:03 | Electrocardiograph Report ---
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
== END 2017-03-08 13:35 | disposition home or self-care (01) ==
LOC: EMEROOPIK 18:01 → INPPIK 18:01
PROVIDERS: ADMIT Internal Medicine; ATTEND Internal Medicine

== ENCOUNTER 2018-12-26 07:22 | Observation (INO) ==
--- NOTE | 2018-12-26 07:28 | Emergency Department Note ---
Disposition Clinical Impression: Otalgia of left ear, Dementia Disposition: Transfer SNF Condition: Good Instructions: Earache (ED) Reasons to Return/Additional Instructions: Take your medicine as directed. Follow-up with your family doctor in 2-3 days for recheck. Return if worse in any way. Time of Disposition: 08:01 Ear HPI - General Chief complaint: ED Ear Stated complaint: Left Ear Pain Time Seen by Provider: 12/26/18 07:26 Source: patient Mode of arrival: EMS Limitations: no limitations Nursing Notes Reviewed: Yes Vital Signs Reviewed: Yes - History of Present Illness HPI Narrative: Patient complains of left ear pain for the past week. He saw his primary care provider he did not grimace anything for it is worse today. He called the squad to come in. He has premixed denying anything else going on at this point says ears his main complaint because of pain. The outer part of the ears not sores inside his ear he says. Pt Subjective Complaint: ear pain, decreased hearing Location: left ear Duration: constant Severity: moderate Improves with: nothing Worsens with: nothing Discharge from ear: no Treatment prior to arrival: none - Related Data Home Medications Medication Instructions Recorded Confirmed Insulin DETEMIR [Levemir] 18 unit SQ BID 05/29/17 11/29/18 Metoprolol [Lopressor] 50 mg PO BID 05/29/17 11/29/18 metFORMIN [Glucophage] 500 mg PO BIDWM 12/09/17 11/29/18 CloNIDine HCl 11/29/18 11/29/18 Glipizide 11/29/18 11/29/18 Previous Rx's Medication Instructions Recorded Lisinopril [Zestril] 40 mg PO DAILY 7 Days #7 tablet 12/02/17 Omeprazole [PriLOSEC] 40 mg PO DAILY@0630 7 Days #7 12/02/17 capsule. Ondansetron ODT [Zofran ODT] 4 mg SL Q6HR PRN #8 tab.rapdis 12/09/17 Promethazine [Phenergan] 25 mg PO Q6HR PRN #16 tablet 12/09/17 Albuterol Sulfate [Albuterol 2 puff IH Q6HR PRN #1 hfa.aer.ad 12/15/17 Inhaler] Azithromycin [Zithromax] 250 mg PO Q24H #6 tablet 11/29/18 Guaifenesin [Mucinex] 600 mg PO BID #20 tab.er.12h 11/29/18 Allergies Allergy/AdvReac Type Severity Reaction Status Date / Time morphine Allergy See Verified 11/29/18 22:50 Comments Penicillins [PCN] Allergy Rash Verified 12/26/18 07:26 All systems ED: reviewed and negative except as stated. Review of Systems: As Per HPI Constitutional: Denies: fever, chills, weakness, weight change Eyes: Denies: eye pain, eye discharge, vision change ENT ED: Reports: as per HPI, ear pain Cardiovascular: Denies: chest pain, palpitations, dyspnea on exertion, edema, syncope Respiratory: Denies: cough, dyspnea, wheezes, hemoptysis, stridor Gastrointestinal: Denies: abdominal pain, nausea, vomiting, diarrhea, constipation, hematemesis, melena, hematochezia Genitourinary: Denies: urgency, dysuria, frequency, hematuria Musculoskeletal: Denies: back pain, neck pain, arthralgia, myalgia Integumentary: Denies: rash, abrasion, lesions Neurological: Denies: headache, weakness, numbness, paresthesias, confusion, abnormal gait, vertigo Psychiatric: Denies: anxiety, depression, suicidal thoughts, homicidal thoughts, auditory hallucinations, visual hallucinations Endocrine: Denies: fatigue Hematological/Lymphatic: Denies: easy bleeding, easy bruising Allergic/Immunologic: Reports: as per HPI Past Medical History - Past Medical History Attestation: Yes The following information was validated with the patient. Source: patient, nursing notes reviewed Medical history: Reports: CHF, COPD, coronary artery disease, diabetes, GI bleed, hypertension, renal disease, other Surgical history: Reports: angioplasty/stent, cholecystectomy, coronary bypass (CABG), orthopedic, other (Left knee replacement) Psychiatric history: Reports: no psych history - Social History Smoking Status: Former smoker Smokeless Tobacco Status: No Alcohol use: Reports: none Drug use: Reports: none Physical Exam - General Limitations: no limitations General appearance: alert, in no apparent distress - Head Head exam: atraumatic, normocephalic, normal inspection - Eye Eye exam: Present: normal appearance, PERRL, EOMI - ENT ENT exam: normal oropharynx, mucous membranes moist, normal external ear exam, other ((Memory is slightly erythematous with injected blood vessels. There is no mastoid tenderness or pain with palpation of the anterior or posterior portions of the ear. The external auditory canal is nonerythematous no debris is noted.) - Expanded ENT Exam External ear exam: Present: normal external inspection Mouth exam: Present: normal external inspection Teeth exam: Present: normal inspection Throat exam: Present: normal inspection - Neck Neck exam: Present: normal inspection, full ROM, trachea midline - Chest Chest inspection: Present: normal inspection, symmetric chest wall rise - Respiratory Respiratory exam: Present: normal lung sounds bilaterally - Cardiovascular Cardiovascular exam: Present: regular rate, normal rhythm, normal heart sounds - Abdominal Exam Abdominal exam: Present: soft, Non-Tender, normal bowel sounds - Extremities Exam Extremities exam: Present: normal inspection, full ROM. Absent: tenderness, pedal edema - Back Exam Back exam: Present: normal inspection, full ROM. Absent: tenderness - Neurological Exam Neurological exam: Present: alert, oriented X3 - Psychiatric Psychiatric exam: Present: normal affect, normal mood - Skin Skin exam: Present: warm, dry, intact, normal color Medical Decision Making - MDM Narrative Medical decision making narrative: I reviewed the patient's medication list Patient's came and talked to me about problems the patient's having at home with his dementia he does not even remember who she is a lot of the time does not remember what is happening at home and she expressed concerns needs help with either home health for placement in a fpc because she cannot handle him anymore. web services developer consult it and they are working on getting him possibly directly admitted to the extended care facility Initial discussed with Dr. Burnett patient was left in his care for final disposition. Sanchez - Sanchez Assessment: Vital Signs, Course and respsone to treatment, Exam Concerns, Patient/Family Expectation, Outstanding Labs Recommendation: Recommendation based on pending studies, treatments, or consults S.B.Vinny.Vance Report Given to: Dr. Lex Bradford Repor Time: 08:00
[2018-12-26 08:08] LABS: Basophils # 0.1 K/mcL (0.0-0.2); Basophils % 0.9 %; Eosinophils # 0.2 K/mcL (0.0-0.6); Eosinophils % 2.6 %; Hematocrit 41.4 % (37.5-50.1); Immature Granulocytes % 0.2 % (0-4); Lymphocytes # 1.5 K/mcL (0.6-4.6); Lymphocytes % 18.6 %; Mean Corpuscular HGB Conc 33.8 g/dL (31.6-35.5); Mean Corpuscular Hemoglobin 28.6 pg (28.0-33.3); Mean Corpuscular Volume 84.7 fL (83.0-100.0); Mean Platelet Volume 10.7 fL (9.4-12.4); Monocytes # 0.6 K/mcL (0.0-1.3); Monocytes % 7.2 %; Neutrophils # 5.8 K/mcL (1.6-8.9); Platelet Count 202 K/mcL (140-400); Red Blood Count 4.89 M/mcL (4.19-5.50); Red Cell Distribution Width 14.2 % (11.5-14.5); Segmented Neutrophils % 70.5 %; White Blood Count 8.2 K/mcL (4.3-11.1)
[2018-12-26 08:27] LABS: Alanine Aminotransferase 13 Units/L (7-52); Albumin 3.8 g/dL (3.5-5.7); Albumin/Globulin Ratio 1.3 (1.1-2.2); Alkaline Phosphatase 41 Units/L (34-104); Aspartate Amino Transferase 14 Units/L (13-39); BUN/Creatinine Ratio 14 (6-26); Bilirubin,Total 0.5 mg/dL (0.3-1.0); Blood Urea Nitrogen 18 mg/dL (8-23); Calcium 8.9 mg/dL (8.6-10.3); Carbon Dioxide 26 mEq/L (23-29); Chloride 103 mEq/L (98-107); Globulin 2.9 g/dL (2.4-3.5); Glucose 244 mg/dL (70-105); Osmolality,Calculated 296 (280-300); Potassium 3.7 mEq/L (3.5-5.1); Sodium 138 mEq/L (136-145); Total Protein 6.7 g/dL (6.4-8.9); eGFR For African Americans > 60 (> 60); eGFR For Non-African Americans 55 (> 60)
[2018-12-26] MEDS ORDERED: *HR* HYDROcodone/Acet 5/325 mg TABLET PO ONE ×2 (09:22→11:09)
[2018-12-26] MEDS ORDERED: Acetaminophen 325 MG TABLET PO PRN (11:09)
[2018-12-26] MEDS ORDERED: Finasteride 5 MG TABLET PO SCH (11:09)
[2018-12-26] MEDS ORDERED: cloNIDine HCl 0.1 MG TABLET PO SCH (11:09)
[2018-12-26] MEDS ORDERED: *HR* Dextrose 50 % in Water (Syg) 50 ML SYRINGE IVP PRN (11:09)
[2018-12-26] MEDS ORDERED: D5% in Water 1,000 ML IVC PRN (11:09)
[2018-12-26] MEDS ORDERED: Ranolazine 500 MG TAB.ER.12H PO SCH (11:09)
[2018-12-26] MEDS ORDERED: Naloxone 0.4 MG/ML INJ IVP PRN (11:09)
[2018-12-26] MEDS ORDERED: hydrALAZINE 25 MG TABLET PO SCH (11:09)
[2018-12-26] MEDS ORDERED: MOM Conc 10 ML UD.LIQ PO PRN (11:09)
[2018-12-26] MEDS ORDERED: Mag Hydrox/Al Hydrox/Simeth 30 ML UDC PO PRN (11:09)
[2018-12-26] MEDS ORDERED: Dextrose Gel 15 GM/37.5 ML TUBE PO PRN ×2 (11:09)
--- NOTE | 2018-12-26 14:35 | Electrocardiograph Report ---
[place] [id number] Test Date: 2018-12-26 Pat Name: Nicolas De Anda Department: EDP-11 Room: [facility] Gender: M Sign Manufacturer: : [id number] Requested By: Arley Burnett Order Number: [id number] Reading MD: Ken Watson Measurements Intervals [place] Rate: 81 P: 12 FL: 176 QRS: -11 QRSD: 104 T: 8 QT: 406 QTc: 472 Interpretive Statements Sinus rhythm Inferior infarct, old Electronically Signed On 12-26-2018 14:34:19 EDT by Ken Watson
[2018-12-26] MEDS: amLODIPine 5 MG TABLET PO SCH (15:34)
[2018-12-26] MEDS: Lisinopril 20 MG TABLET PO SCH (15:34)
[2018-12-26] MEDS: Insulin LISPRO 300 UNITS/3 ML VIAL SQ SCH ×2 (15:34→17:33)
[2018-12-26 15:50] LABS: Bilirubin,Urine Negative (Negative); Blood,Urine Negative (Negative); Clarity,Urine Clear (Clear); Color,Urine Yellow (Yellow); Glucose,Urine (UA) 250 mg/dL (Normal); Ketones,Urine 15 mg/dL (Negative); Leukocyte Esterase,Urine Negative (Negative); Nitrite,Urine Negative (Negative); PH,Urine 5.5 pH Units (5.0-8.0); Protein,Urine 30 mg/dL (Neg-Trace); Urobilinogen,Urine Normal (Normal)
--- NOTE | 2018-12-26 15:56 | Internal Med History&Physical ---
Date of Encounter: 12/26/18 Time of Encounter: 15:25 Assessment and Plan (1) Headache Current visit: No Status: Acute MRI of brain will be ordered to further evaluate. Qualifiers: Headache type: unspecified Headache chronicity pattern: unspecified pattern Intractability: intractable Qualified Code(s): R51 - Headache (2) CVA (cerebral vascular accident) Current visit: Yes Status: Chronic He will be restarted on Plavix. Echocardiogram and carotid Doppler has been ordered. Qualifiers: CVA mechanism: unspecified Qualified Code(s): I63.9 - Cerebral infarction, unspecified (3) Hypertension Current visit: No Status: Chronic Norvasc, lisinopril, and Lopressor have been ordered as at home. Qualifiers: Hypertension type: essential hypertension Qualified Code(s): I10 - Essential (primary) hypertension (4) Diabetes mellitus Current visit: No Status: Chronic Hemoglobin A1c was 10.7% on 01/19/2018. Recheck in a.m. Continue metformin, glipizide, and Accu-Cheks with SSI. 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 PT and OT evaluations will be done. (6) Blind right eye Current visit: Yes Status: Acute MRI of brain will be done. Follow up with ophthalmology as directed. Internal Medicine - H&P: HPI Chief complaint: Right eye, throat, and left ear pain Admitted From: Emergency Dept Plans for Post Hospital Care: Home History of present illness: Mr. De Anda is a 83 year old male who came to emergency room stating he had loss of vision in his right eye approximately 6 months ago following injections by an can labeler. He reports approximately 2 months ago he developed some pain in his right eye that radiated into his right frontal area and leftward across his forehead to his left ear area. He states the pain became more severe in the past few days and he developed a sore throat also. He came to emergency room and was evaluated. Head CT showed subacute to chronic right occipital lobe infarct not present on January [address] There were multiple tiny frontal and basal ganglia lacunar infarcts increased in number from 2018. He was admitted to [facility] floor for ongoing care needs. He denies known previous strokes. He states he was taken off Plavix a few months ago by his PCP but does not know the reason for this. Neurologic history is positive for hospitalization February 2017 at [facility] with probable TIA. He had full recovery without recurrence. He denies seizures. He states he has not returned to the can labeler to discuss the eye pain and complete loss of vision. He reports he has mentioned the pain to his PCP without further workup or treatment ordered. Past Med Surg Social Fam HX - Past Medical History Medical history: CHF, COPD, coronary artery disease, diabetes, GI bleed, hypertension, renal disease, other Additional medical history: home oxygen prn (mostly at night - Linda) Psychiatric history: no psych history - Past Surgical History Surgical History: angioplasty/stent, cholecystectomy, coronary bypass (CABG), orthopedic, other (Left knee replacement) Additional surgical history: left knee replacement, colonoscopy, chest sx unknown - Social History Smoking Status: Former smoker Smokeless Tobacco Status: No Alcohol use: none Drug use: none - Family History Brother Living Status: Still Living Hx Family Cancer: Yes (Lung) Hx Family Endocrine Disorder: Yes (DM) Father Living Status: Hx Family Cancer: Yes Mother Hx Family Cardiac Disorders: No Hx Family Cancer: No Internal Medicine - H&P: Meds Metoprolol [Lopressor] 50 mg PO BID 05/29/17 [History] Promethazine [Phenergan] 25 mg PO Q6HR PRN #16 tablet 12/09/17 [Rx] metFORMIN [Glucophage] 500 mg PO BIDWM 12/09/17 [History] CloNIDine HCl 0.2 mg PO DAILY 11/29/18 [History] Glipizide 5 mg PO DAILY 11/29/18 [History] Amlodipine Besylate 5 mg PO DAILY 12/26/18 [History] Atorvastatin Calcium [Lipitor] 20 mg PO DAILY 12/26/18 [History] Donepezil [Aricept] 5 mg PO HS 12/26/18 [History] Finasteride [Proscar] 5 mg PO DAILY 12/26/18 [History] Lisinopril [Zestril] 20 mg PO DAILY 12/26/18 [History] Meclizine HCl [Verticalm] 25 mg PO DAILY 12/26/18 [History] Omeprazole [PriLOSEC] 40 mg PO DAILY 12/26/18 [History] Potassium Chloride [K-Tab ER] 10 meq PO DAILY 12/26/18 [History] Ranolazine [Ranexa] 500 mg PO BID 12/26/18 [History] Tamsulosin HCl [Flomax] 0.4 mg PO DAILY 12/26/18 [History] hydrALAZINE [HydrALAZINE] 50 mg PO DAILY 12/26/18 [History] Allergy/AdvReac Type Severity Reaction Status Date / Time morphine Allergy See Verified 11/29/18 22:50 Comments Penicillins [PCN] Allergy Rash Verified 12/26/18 07:26 All Systems PM: A 10-system review of systems was performed and is negative for pertinent findings except as documented above in the HPI. Review of systems: Review of systems from his March 2017 [facility] hospitalization were reviewed and revised as below. Gen.: His weight has decreased from 87.77 kg on 02/14/2017 to 79.549 kg today. Cardiovascular: He has history of hypertension and known ASHD status post non- STEMI May 2015 followed by three-vessel CABG. Echocardiogram 05/11/2017 showed LVEF of 55%. There was mild to moderate aortic regurgitation and moderate mitral regurgitation. The interventricular septum and posterior wall thickness measurements were 1.30 cm each. There was significant LAE at 5.90 cm. Right atrial size was reported normal. Carotid Doppler study 09/29/2017 showed bilateral nonstenotic plaque. He denies DVT or pulmonary embolus. Respiratory: He smoked from age [age] up to 1 pack per day. He denies chronic lung disease and does not use home oxygen GI: He has had cholecystectomy. He denies disorders of his liver or exocrine pancreas : He denies hematuria dysuria or kidney stones Neurologic: As per history of present illness Endocrine: He was diagnosed with DM 2 approximately age 70. He has hyperlipidemia but denies thyroid disease. Hematology/oncology: He denies blood disorders cancers or anemia Psychiatric: He denies anxiety depression or other mental health issues [place] skeletal: He denies significant DJD gout or other bone joint or muscle disorders. - Constitutional Vitals: Temp Pulse Resp BP Pulse Ox 98.3 F 65 16 115/70 94 12/26/18 10:46 12/26/18 10:46 12/26/18 10:46 12/26/18 10:46 12/26/18 10:46 Exam: Gen.: He is a well-developed well-nourished male resting comfortably in bed who appears in no acute distress HEENT: Head is atraumatic and normocephalic. Eyes: EOMI. There is no scleral icterus. There is a small sub-conjunctival hemorrhage in the inferior medial portion of the right eye. Mouth: Mucosa is moist. Neck: Supple and nontender. There is no thyromegaly or adenopathy noted. Heart: Regular without murmurs gallops or ectopics Lungs: No wheezes or crackles are heard. Abdomen: Soft and nontender. No masses or guarding are noted. Extremities: There is no cyanosis edema or clubbing noted. Dorsalis pedis and posterior tibial pulses are trace to 1+ palpable bilaterally. Neurologic: Mental status: He is talkative and seems to be a reliable historian. Cranial nerves: Smile is symmetric. Forehead wrinkles bilaterally. Tongue protrudes midline. EOMI. Motor: There is no pronator drift. Ankle flexion and extension strength against resistance is 2/2 for the right leg. The left leg shows slight decrease in strength on dorsiflexion of the ankle. Plantar flexion strength is normal. Cerebellar: Finger to nose is intact bilaterally. Skin: Warm and dry Internal Med - H&P Results - Labs CBC & Chem 7: 12/26/18 08:00 12/26/18 08:00 Labs: Short CBC 12/26/18 Range/Units 08:00 WBC 8.2 (4.3-11.1) K/mcL Hgb 14.0 (12.9-16.9) g/dL Hct 41.4 (37.5-50.1) % Plt Count 202 (140-400) K/mcL Neutrophils # 5.8 (1.6-8.9) K/mcL BMP 12/26/18 08:00 Sodium 138 Potassium 3.7 Chloride 103 Carbon Dioxide 26 BUN 18 Creatinine 1.25 Glucose 244 H Calcium 8.9 Liver Function 12/26/18 Range/Units 08:00 Total Bilirubin 0.5 (0.3-1.0) mg/dL AST 14 (13-39) Units/L ALT 13 (7-52) Units/L Alkaline Phosphatase 41 (34-104) Units/L Albumin 3.8 (3.5-5.7) g/dL - Impressions ITS Impressions Head CT 12/26/18 07:33 IMPRESSION: 1. No acute intracranial abnormality. 2. Subacute to chronic right occipital lobe infarct, which is new from January 2018. 3. Moderate chronic small vessel ischemic changes, with tiny frontal and basal ganglia infarcts/lacunes, which are overall increased in number from 2018, but now chronic. D/ / Manuel Winslow MD / Manuel Winslow MD Interpreting Provider: Manuel Winslow MD
[2018-12-26 15:58] LABS: Bacteria,Urine Few per hpf (None-Few); Hyaline Casts,Urine Few per lpf (None-Few); Mucus,Urine Few (Few); Squamous Epithelial Cell,Urine Few per lpf (None-Few); WBC,Urine 0-3 per hpf (0-3)
[2018-12-26 17:04] LABS: Estimated Average Glucose 220 mg/dl
[2018-12-26] MEDS: *HR* Metformin 500 MG TABLET PO SCH (17:33)
[2018-12-26] MEDS: *HR* HYDROcodone/Acet 5/325 mg TABLET PO PRN (19:39)
[2018-12-26] MEDS: Ibuprofen 400 MG TABLET PO PRN (22:13)
[2018-12-27] MEDS: Ondansetron ODT 4 MG TAB.RAPDIS SL PRN ×2 (01:46→11:07)
[2018-12-27] MEDS: *HR* HYDROcodone/Acet 5/325 mg TABLET PO PRN ×3 (01:47→19:08)
[2018-12-27] MEDS: *HR* Enoxaparin 40 MG/0.4 ML SYRINGE SQ SCH (05:55)
[2018-12-27 08:08] LABS: Basophils # 0.1 K/mcL (0.0-0.2); Basophils % 1.2 %; Eosinophils # 0.3 K/mcL (0.0-0.6); Eosinophils % 4.7 %; Hematocrit 40.6 % (37.5-50.1); Hemoglobin 13.5 g/dL (12.9-16.9); Immature Granulocytes % 0.2 % (0-4); Lymphocytes # 1.6 K/mcL (0.6-4.6); Lymphocytes % 23.9 %; Mean Corpuscular HGB Conc 33.3 g/dL (31.6-35.5); Mean Corpuscular Hemoglobin 28.7 pg (28.0-33.3); Mean Corpuscular Volume 86.2 fL (83.0-100.0); Mean Platelet Volume 10.5 fL (9.4-12.4); Monocytes # 0.5 K/mcL (0.0-1.3); Monocytes % 8.2 %; Neutrophils # 4.1 K/mcL (1.6-8.9); Platelet Count 195 K/mcL (140-400); Red Blood Count 4.71 M/mcL (4.19-5.50); Red Cell Distribution Width 14.2 % (11.5-14.5); Segmented Neutrophils % 61.8 %; White Blood Count 6.6 K/mcL (4.3-11.1)
[2018-12-27] MEDS: *HR* Metformin 500 MG TABLET PO SCH (08:23)
[2018-12-27] MEDS: Lisinopril 20 MG TABLET PO SCH (08:24)
[2018-12-27] MEDS: amLODIPine 5 MG TABLET PO SCH (08:24)
[2018-12-27] MEDS: Insulin LISPRO 300 UNITS/3 ML VIAL SQ SCH ×3 (08:25→16:07)
[2018-12-27 08:30] LABS: Potassium 3.9 mEq/L (3.5-5.1)
--- NOTE | 2018-12-27 15:42 | Internal Med Progress Note ---
Date of Encounter: 12/27/18 Time of Encounter: 15:35 - Assessment and plan (1) Headache Current Visit: No Status: Acute Assessment and plan: December 27. MRI showed additional acute to subacute and chronic strokes. Continue present Rx Qualifiers: Headache type: unspecified Headache chronicity pattern: unspecified pattern Intractability: intractable Qualified Code(s): R51 - Headache (2) CVA (cerebral vascular accident) Current Visit: Yes Status: Chronic Assessment and plan: December 27. Echocardiogram unremarkable. Carotid Doppler report pending. Continue Plavix and PT/OT. Atorvastatin will be added. Qualifiers: CVA mechanism: unspecified Qualified Code(s): I63.9 - Cerebral infarction, unspecified (3) Hypertension Current Visit: No Status: Chronic Assessment and plan: December 27. Continue Norvasc, Lopressor, and lisinopril. Qualifiers: Hypertension type: essential hypertension Qualified Code(s): I10 - E ssential (primary) hypertension (4) Diabetes mellitus Current Visit: No Status: Chronic Assessment and plan: December 27. Hemoglobin A1c above desirable level at 9.3. Continue metformin, glipizide, and Accu-Cheks with SSI. 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 Continue PT and OT intervention. (6) Blind right eye Current Visit: Yes Status: Acute Assessment and plan: December 27. As per ophthalmology. - Subjective Interval history: December 27. He has no new complaints except nausea. He has had no vomiting. - Constitutional Vitals: Temp Pulse Resp BP Pulse Ox 98.0 F 64 16 155/75 95 12/27/18 13:56 12/27/18 13:56 12/27/18 13:56 12/27/18 13:56 12/27/18 13:56 Exam: He is resting comfortably in bed and appears in no acute distress. His affect is overall cheerful. I reviewed his medications. I discussed the MRI report with patient and . Internal Medicine: Result - Labs CBC & Chem 7: 12/27/18 07:47 12/27/18 07:47 Labs: Short CBC 12/27/18 Range/Units 07:47 WBC 6.6 (4.3-11.1) K/mcL Hgb 13.5 (12.9-16.9) g/dL Hct 40.6 (37.5-50.1) % Plt Count 195 (140-400) K/mcL Neutrophils # 4.1 (1.6-8.9) K/mcL BMP 12/27/18 07:47 Sodium 139 Potassium 3.9 Chloride 104 Carbon Dioxide 24 BUN 26 H Creatinine 1.73 H Glucose 191 H Calcium 9.0 Urine 12/26/18 Range/Units 15:40 Urine Color Yellow (Yellow) Urine Clarity Clear (Clear) Urine pH 5.5 (5.0-8.0) pH Units Ur Specific [place] 1.020 (1.010-1.025) Urine Protein 30 H (Neg-Trace) mg/dL Urine Glucose (UA) 250 H (Normal) mg/dL - Impressions Impressions Echocardiogram 12/26/18 11:09 Impressions: LVEF 55-60%. Moderate left ventricular diastolic dysfunction. Mild concentric left ventricular hypertrophy. Grossly normal sized right ventricle with moderate hypokinesis. Moderately dilated left atrium. Moderate aortic regurgitation. No evidence of pulmonary hypertension. Left Ventricular Wall Motion: Rest Echo Findings All wall segments showed normal motion. Findings: Study Quality * Technically adequate exam. ECG Findings * Normal sinus rhythm. Left Ventricle * LVEF 55-60%. * Moderate left ventricular diastolic dysfunction. * Mild concentric left ventricular hypertrophy. * Normal LV chamber size. Right Ventricle * Grossly normal sized right ventricle with moderate hypokinesis. Left Atrium * Moderately dilated left atrium. Right Atrium * Normal right atrial size. Interatrial Septum * Interatrial septum not well evaluated. Aortic Valve * Aortic valve not well visualized. * Moderate aortic regurgitation. * Moderately sclerotic aortic valve leaflets. * No aortic stenosis. Mitral Valve * Mild mitral regurgitation. * No mitral stenosis. * Moderate mitral annular calcification Tricuspid Valve * Trace tricuspid regurgitation. * No tricuspid stenosis. * Normal tricuspid valve structure. * No evidence of pulmonary hypertension. Pulmonic Valve * Pulmonic valve not well visualized. Aorta * Normally sized aortic root. Pericardium * The pericardium appears normal. IVC * Normal IVC dimensions and inspiratory collapse. Pulmonary Artery * Normal visualized portions of the main pulmonary artery. Brain MRI 12/27/18 07:00 IMPRESSION: Small foci of acute to subacute infarct within right centrum semiovale. Small foci of susceptibility signal scattered within the supratentorial brain and damian. This is most compatible with the chronic microhemorrhages, given lack of CT correlate. Chronic infarct within medial right occipital lobe. Chronic lacunar infarcts within bilateral basal ganglia and bilateral cerebellum. Chronic small vessel ischemic white matter disease. Diffuse cerebral volume loss. The findings were sent to the Radiology Results Communication [facility] at 9:52 am on 12/27/2018to be communicated to a licensed caregiver. D/ / 12/27/2018 10:00:34 Humberto Drake MD / Ashlee Nunez Interpreting Provider: Humberto Drake MD Consult Discharge Plan - Plan Referrals: Pratibha Covarrubias MD [Primary Care Provider] - 1 week
[2018-12-27] MEDS ORDERED: Ondansetron ODT 4 MG TAB.RAPDIS SL PRN (15:45)
[2018-12-27] MEDS: Ibuprofen 400 MG TABLET PO PRN (20:00)
[2018-12-27] MEDS ORDERED: amLODIPine 5 MG TABLET PO ONE (23:29)
[2018-12-28] MEDS: *HR* Enoxaparin 40 MG/0.4 ML SYRINGE SQ SCH (05:39)
[2018-12-28] MEDS: *HR* HYDROcodone/Acet 5/325 mg TABLET PO PRN ×2 (05:39→11:37)
[2018-12-28 06:34] LABS: BUN/Creatinine Ratio 15 (6-26); Blood Urea Nitrogen 19 mg/dL (8-23); Calcium 9.3 mg/dL (8.6-10.3); Carbon Dioxide 24 mEq/L (23-29); Chloride 100 mEq/L (98-107); Glucose 197 mg/dL (70-105); Osmolality,Calculated 288 (280-300); Potassium 4.3 mEq/L (3.5-5.1); Sodium 135 mEq/L (136-145); eGFR For African Americans > 60 (> 60); eGFR For Non-African Americans 53 (> 60)
[2018-12-28] MEDS ORDERED: *HR* OxyCODONE/APAP 5/325 TABLET PO ONE (06:40)
[2018-12-28] MEDS ORDERED: Artificial Tears SOLN 15 ML BOTTLE BOTH EYES PRN (06:41)
[2018-12-28] MEDS: Ondansetron ODT 4 MG TAB.RAPDIS PO PRN ×3 (07:01→16:05)
[2018-12-28] MEDS: amLODIPine 5 MG TABLET PO SCH (08:17)
[2018-12-28] MEDS: Lisinopril 20 MG TABLET PO SCH (08:17)
[2018-12-28] MEDS: Insulin LISPRO 300 UNITS/3 ML VIAL SQ SCH ×3 (08:19→16:51)
--- NOTE | 2018-12-28 17:13 | Internal Med Progress Note ---
Date of Encounter: 12/28/18 Time of Encounter: 17:05 - Assessment and plan (1) Headache Current Visit: No Status: Acute Assessment and plan: December 27. MRI showed additional acute to subacute and chronic strokes. Continue present Rx Qualifiers: Headache type: unspecified Headache chronicity pattern: unspecified pattern Intractability: intractable Qualified Code(s): R51 - Headache (2) CVA (cerebral vascular accident) Current Visit: Yes Status: Chronic Assessment and plan: December 27. Echocardiogram unremarkable. Carotid Doppler report pending. Continue Plavix and PT/OT. Atorvastatin will be added. December 28. Carotid Doppler shows no significant stenoses. Continue Plavix, PT/OT, and atorvastatin. Qualifiers: CVA mechanism: unspecified Qualified Code(s): I63.9 - Cerebral infarction, unspecified (3) Hypertension Current Visit: No Status: Chronic Assessment and plan: December 27. Continue Norvasc, Lopressor, and lisinopril. December 28. Blood pressure inadequately controlled. Continue Norvasc but increase Lopressor and lisinopril. Add clonidine. Qualifiers: Hypertension type: essential hypertension Qualified Code(s): I10 - Essential (primary) hypertension (4) Diabetes mellitus Current Visit: No Status: Chronic Assessment and plan: December 27. Hemoglobin A1c above desirable level at 9.3. Continue metformin, glipizide, and Accu-Cheks with SSI. December 28. Blood sugars satisfactory. Continue present Rx. Qualifiers: Diabetes mellitus type: type 2 Diabetes mellitus buttermaker continuous churn insulin use: without group home use Diabetes mellitus complication status: with kidney complications Diabetes mellitus complication detail: with chronic kidney disease Chronic kidney disease stage: stage 3 (moderate) Qualified Code(s): E11.22 - Type 2 diabetes mellitus with diabetic chronic kidney disease; N18.3 - Chronic kidney disease, stage 3 (moderate) (5) Imbalance Current Visit: Yes Status: Acute Assessment and plan: December 27. Continue PT and OT intervention. (6) Blind right eye Current Visit: Yes Status: Acute Assessment and plan: December 27. As per ophthalmology. (7) Nausea & vomiting Current Visit: Yes Status: Acute Assessment and plan: December 28. He reports intermittent episodes over past 6 months. No workup has been done. Continue Zofran and Phenergan. KUB will be ordered. Qualifiers: Vomiting type: unspecified Vomiting Intractability: non-intractable Qualified Code(s): R11.2 - Nausea with vomiting, unspecified - Subjective Interval history: December 27. He has no new complaints except nausea. He has had no vomiting. December 28. He states he is still nauseated - Constitutional Vitals: Temp Pulse Resp BP Pulse Ox 98.1 F 77 16 188/89 94 12/28/18 11:12 12/28/18 11:12 12/28/18 11:12 12/28/18 11:12 12/28/18 11:12 Exam: He is resting comfortably on the side of bed and appears in no acute distress. He denies pain or dyspnea but states he is nauseated. I reviewed his medications and lab results. Internal Medicine: Result - Labs CBC & Chem 7: 12/27/18 07:47 12/28/18 04:33 Labs: BMP 12/28/18 04:33 Sodium 135 L Potassium 4.3 Chloride 100 Carbon Dioxide 24 BUN 19 Creatinine 1.29 Glucose 197 H Calcium 9.3 - Impressions Impressions Brain MRI 12/27/18 07:00 IMPRESSION: 1. Small focus of acute to subacute infarct within right centrum semiovale. 2. Small foci of susceptibility signal scattered within the supratentorial brain and damian. This is most compatible with the chronic microhemorrhages. 3. Chronic infarct within medial right occipital lobe. Chronic lacunar infarcts within bilateral basal ganglia and bilateral cerebellum. Chronic small vessel ischemic white matter disease. 4. Diffuse cerebral volume loss. The findings were sent to the [facility] at 9:52 am on 12/27/2018to be communicated to a licensed caregiver. D/ / 12/27/2018 10:00:34 Humberto Drake MD / Ashlee Nunez Interpreting Provider: Humberto Drake MD - VTE Documentation of Mechanical Device: Intermittent pneumatic compression device Consult Discharge Plan - Plan Referrals: Pratibha Covarrubias MD [Primary Care Provider] - 1 week
[2018-12-28] MEDS: cloNIDine HCl 0.1 MG TABLET PO SCH ×2 (17:16→21:47)
[2018-12-28] MEDS ORDERED: amLODIPine 5 MG TABLET PO ONE (23:29)
[2018-12-29] MEDS: *HR* Enoxaparin 40 MG/0.4 ML SYRINGE SQ SCH (06:40)
[2018-12-29] MEDS: cloNIDine HCl 0.1 MG TABLET PO SCH (08:32)
[2018-12-29] MEDS: amLODIPine 5 MG TABLET PO SCH (08:32)
[2018-12-29] MEDS: Insulin LISPRO 300 UNITS/3 ML VIAL SQ SCH ×2 (08:33→11:52)
[2018-12-29] MEDS ORDERED: Lisinopril 20 MG TABLET PO SCH (09:00)
--- NOTE | 2018-12-29 14:21 | Discharge Summary ---
Date of Encounter: 12/29/18 Time of Encounter: 14:05 - Discharge Diagnosis (1) CVA (cerebral vascular accident) Priority: Primary Status: Chronic Qualifiers: CVA mechanism: unspecified Qualified Code(s): I63.9 - Cerebral infarction, unspecified (2) Headache Priority: Secondary Status: Acute Qualifiers: Headache type: unspecified Headache chronicity pattern: unspecified pattern Intractability: intractable Qualified Code(s): R51 - Headache (3) Hypertension Priority: Secondary Status: Chronic Qualifiers: Hypertension type: essential hypertension Qualified Code(s): I10 - Essential (primary) hypertension (4) Diabetes mellitus Priority: Secondary Status: Chronic Qualifiers: Diabetes mellitus type: type 2 Diabetes mellitus shelter insulin use: without shelter use Diabetes mellitus complication status: with kidney complications Diabetes mellitus complication detail: with chronic kidney disease Chronic kidney disease stage: stage 3 (moderate) Qualified Code(s): E11.22 - Type 2 diabetes mellitus with diabetic chronic kidney disease; N18.3 - Chronic kidney disease, stage 3 (moderate) (5) Imbalance Priority: Secondary Status: Acute (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 De Anda is a 83 year old male who came to emergency room stating he had loss of vision in his right eye approximately 6 months ago following injections by an stringed instrument assembler. He reports approximately 2 months ago he developed some pain in his right eye that radiated into his right frontal area and leftward across his forehead to his left ear area. He states the pain became more severe in the past few days and he developed a sore throat also. He came to emergency room and was evaluated. Head CT showed subacute to chronic right occipital lobe infarct not present on January [address] There were multiple tiny frontal and basal ganglia lacunar infarcts increased in number from 2018. He was admitted to [facility] floor for ongoing care needs. Initial orders were written by the emergency room physician. I saw him on December 26 and performed a history and physical. MRI of the brain was done to further evaluate. There was seen a small focus of acute to subacute infarct in the right centrum semiovale. There were additional small infarcts seen scattered throughout the brain and brainstem. He was placed on Plavix. Carotid Doppler study showed bilateral nonstenotic plaque. Echocardiogram showed LVEF of 55- 60%. There was moderate aortic regurgitation.. There was LV diastolic dysfunction with E/A ratio of 0.7. The interventricular septum and posterior wall thickness measurements were 1.40 and 1.00 cm respectively. There was LAE at 5.20 cm. He had physical therapy and occupational therapy evaluations with ongoing inte rvention. He made satisfactory progress. It was felt he would benefit from ongoing therapy. Arrangements were complete on December 29 for him to be discharged to [facility] fast-track. Blood pressure was adequately controlled. Lopressor and lisinopril doses were increased. Norvasc was discontinued and clonidine was added. This will be monitored at the longterm. Hemoglobin A1c returned above desirable level at 9.3%. He will continue with metformin and glipizide with Accu-Cheks and SSI. He reported intermittent vomiting and nausea for approximately 6 months. He stated no workup had been done. He will be given Reglan empirically for possible diabetic gastropathy. KUB showed no significant abnormality. Zofran will be given on a prn basis. Creatinine was 1.29 on 12/28/2018 with estimated GFR 53. Labs will be monitored at the [facility]. - Time Spent with Patient Total time spent providing and/or coordinating discharge services: - Discharge Medications Prescriptions: New Artificial Tears SOLN [Akwa Tears] 1 drop BOTH EYES QID PRN bottle PRN Reason: Dry Eyes cloNIDine HCl [CloNIDine HCl] 0.1 mg PO BID tablet Docusate [Colace] 100 mg PO BID capsule metFORMIN [Glucophage] 500 mg PO BIDWM tablet Metoprolol [Lopressor] 75 mg PO BID tablet Mag Hydrox/Al Hydrox/Simeth [Maalox] 15 ml PO Q6HR PRN udc PRN Reason: Dyspepsia MOM Conc [MILK OF MAGNESIA conc] 10 ml PO DAILY PRN ud.liq PRN Reason: Constipation Clopidogrel [Plavix] 75 mg PO DAILY tablet Metoclopramide [Reglan] 5 mg PO BID 365 Days tablet Lisinopril [Zestril] 40 mg PO DAILY tablet Ondansetron ODT [Zofran ODT] 4 mg PO Q4H PRN #0 tab.rapdis PRN Reason: Nausea And Vomiting Continued metFORMIN [Glucophage] 500 mg PO BIDWM Amlodipine Besylate 5 mg PO DAILY Atorvastatin Calcium [Lipitor] 20 mg PO DAILY Donepezil [Aricept] 5 mg PO HS Potassium Chloride [K-Tab ER] 10 meq PO DAILY Finasteride [Proscar] 5 mg PO DAILY Ranolazine [Ranexa] 500 mg PO BID Tamsulosin HCl [Flomax] 0.4 mg PO DAILY Dorzolamide HCl/Pf [Dorzolamide 2% Eye Drop] 1 drop OP Brimonidine Tartrate/Timolol [Combigan 0.2%-0.5% Eye Drops] 1 drop OP TID Discontinued Metoprolol [Lopressor] 50 mg PO BID Promethazine [Phenergan] 25 mg PO Q6HR PRN #16 tablet PRN Reason: Nausea Glipizide 5 mg PO DAILY CloNIDine HCl 0.2 mg PO DAILY Lisinopril [Zestril] 20 mg PO DAILY Meclizine HCl [Verticalm] 25 mg PO DAILY Omeprazole [PriLOSEC] 40 mg PO DAILY hydrALAZINE [HydrALAZINE] 50 mg PO DAILY raNITIdine HCl [Zantac] 150 mg PO DAILY Oxycodone HCl/Acetaminophen [Percocet 5-325 mg Tablet] 1 tab PO Q12H PRN PRN Reason: Pain Home Medications: metFORMIN [Glucophage] 500 mg PO BIDWM 12/09/17 [History] Amlodipine Besylate 5 mg PO DAILY 12/26/18 [History] Atorvastatin Calcium [Lipitor] 20 mg PO DAILY 12/26/18 [History] Donepezil [Aricept] 5 mg PO HS 12/26/18 [History] Finasteride [Proscar] 5 mg PO DAILY 12/26/18 [History] Potassium Chloride [K-Tab ER] 10 meq PO DAILY 12/26/18 [History] Ranolazine [Ranexa] 500 mg PO BID 12/26/18 [History] Tamsulosin HCl [Flomax] 0.4 mg PO DAILY 12/26/18 [History] Brimonidine Tartrate/Timolol [Combigan 0.2%-0.5% Eye Drops] 1 drop OP TID 12/28/18 [History] Dorzolamide HCl/Pf [Dorzolamide 2% Eye Drop] 1 drop OP 12/28/18 [History] Artificial Tears SOLN [Akwa Tears] 1 drop BOTH EYES QID PRN bottle 12/29/18 [Rx] Clopidogrel [Plavix] 75 mg PO DAILY tablet 12/29/18 [Rx] Docusate [Colace] 100 mg PO BID capsule 12/29/18 [Rx] Lisinopril [Zestril] 40 mg PO DAILY tablet 12/29/18 [Rx] MOM Conc [MILK OF MAGNESIA conc] 10 ml PO DAILY PRN ud.liq 12/29/18 [Rx] Mag Hydrox/Al Hydrox/Simeth [Maalox] 15 ml PO Q6HR PRN udc 12/29/18 [Rx] Metoclopramide [Reglan] 5 mg PO BID 365 Days tablet 12/29/18 [Rx] Metoprolol [Lopressor] 75 mg PO BID tablet 12/29/18 [Rx] Ondansetron ODT [Zofran ODT] 4 mg PO Q4H PRN #0 tab.rapdis 12/29/18 [Rx] cloNIDine HCl [CloNIDine HCl] 0.1 mg PO BID tablet 12/29/18 [Rx] metFORMIN [Glucophage] 500 mg PO BIDWM tablet 12/29/18 [Rx] Allergies/Adverse Reactions: Allergy/AdvReac Type Severity Reaction Status Date / Time morphine Allergy See Verified 11/29/18 22:50 Comments Penicillins [PCN] Allergy Rash Verified 12/26/18 07:26 Date of admission: 12/26/18 09:30 Primary care physician: Pratibha Covarrubias MD Consults: 12/26/18 11:09 Consult to Vice President Industrial Relations [CONS] Routine Reason for SW Consult: Progressive dementia, family desire to explore longterm placement 12/27/18 09:41 Consult to Occupational Therapy [CONS] Routine Comment: Evaluate, develop and implement POC Reason for Consult: Weakness Does patient have active BEDREST order?: No Is patient medically & hemodynamically stable?: Yes Patient assessed for mobility or mobilized this visit?: Yes Consult to Physical Therapy [CONS] Routine Comment: Evaluate, develop and implement POC Reason for Consult: Weakness Does patient have active BEDREST order?: No Is patient medically & hemodynamically stable?: Yes Patient assessed for mobility or mobilized this visit?: Yes - Constitutional Vitals: Temp Pulse Resp BP Pulse Ox 98.2 F 69 17 152/69 93 12/29/18 07:05 12/29/18 07:05 12/29/18 07:05 12/29/18 07:05 12/29/18 07:05 - Patient Status Disposition: Transfer SNF Condition: Good - Discharge Instructions - Diet and Activity Activity: as per physical therapy Diet: diabetic diet - VTE Documentation of Mechanical Device: Intermittent pneumatic compression device
[2018-12-29 15:57] VITALS: BP 126/61
--- NOTE | 2018-12-29 16:51 | Physician Discharge Referral ---
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 (7) Nausea & vomiting Priority: Secondary Status: Acute (8) CKD (chronic kidney disease) stage 3, GFR 30-59 ml/min Priority: Secondary Status: Chronic Prognosis: Good Aware of Diagnosis: Patient, Family Aware of Prognosis: Patient, Family - Transfer Medications Prescriptions: Metoclopramide [Reglan] 5 mg PO BID 365 Days tablet Home Medications: metFORMIN [Glucophage] 500 mg PO BIDWM 12/09/17 [History] Amlodipine Besylate 5 mg PO DAILY 12/26/18 [History] Atorvastatin Calcium [Lipitor] 20 mg PO DAILY 12/26/18 [History] Donepezil [Aricept] 5 mg PO HS 12/26/18 [History] Finasteride [Proscar] 5 mg PO DAILY 12/26/18 [History] Potassium Chloride [K-Tab ER] 10 meq PO DAILY 12/26/18 [History] Ranolazine [Ranexa] 500 mg PO BID 12/26/18 [History] Tamsulosin HCl [Flomax] 0.4 mg PO DAILY 12/26/18 [History] Brimonidine Tartrate/Timolol [Combigan 0.2%-0.5% Eye Drops] 1 drop OP TID 12/28/18 [History] Dorzolamide HCl/Pf [Dorzolamide 2% Eye Drop] 1 drop OP 12/28/18 [History] Artificial Tears SOLN [Akwa Tears] 1 drop BOTH EYES QID PRN bottle 12/29/18 [Rx] Clopidogrel [Plavix] 75 mg PO DAILY tablet 12/29/18 [Rx] Docusate [Colace] 100 mg PO BID capsule 12/29/18 [Rx] Lisinopril [Zestril] 40 mg PO DAILY tablet 12/29/18 [Rx] MOM Conc [MILK OF MAGNESIA conc] 10 ml PO DAILY PRN ud.liq 12/29/18 [Rx] Mag Hydrox/Al Hydrox/Simeth [Maalox] 15 ml PO Q6HR PRN udc 12/29/18 [Rx] Metoclopramide [Reglan] 5 mg PO BID 365 Days tablet 12/29/18 [Rx] Metoprolol [Lopressor] 75 mg PO BID tablet 12/29/18 [Rx] Ondansetron ODT [Zofran ODT] 4 mg PO Q4H PRN #0 tab.rapdis 12/29/18 [Rx] cloNIDine HCl [CloNIDine HCl] 0.1 mg PO BID tablet 12/29/18 [Rx] metFORMIN [Glucophage] 500 mg PO BIDWM tablet 12/29/18 [Rx] Allergies/Adverse Reactions: Allergy/AdvReac Type Severity Reaction Status Date / Time morphine Allergy See Verified 11/29/18 22:50 Comments Penicillins [PCN] Allergy Rash Verified 12/26/18 07:26 - Respiratory Orders Smoking Cessation: Smoking cessation has been advised. For more information, call the [place] Tobacco Quit Line at 0-091-FWUN-NOW. - Lab Orders Lab Orders: Other (include drug levels w/frequency) (CBC with differential, BMP, BNP peptide in 5 days) - Mobility Orders Ambulate - Rehabiliation Orders Rehab Potential: Good Rehab Orders: Evaluation for Physical Therapy, Evaluation for Occupational Therapy - Diet Orders No Concentrated Sweets CERTIFICATION: I certify that the transfer of the above named patient to an [facility] is necessary for the continuing treatment of the diagnosis listed. The above information is true and accurate reflection of patient's current condition. Confidential - Redisclosure prohibited without a patient's written consent.
== END 2018-12-29 16:10 ==
LOC: EMEROOPIK 07:22 → INPPIK 07:22
PROVIDERS: ADMIT Internal Medicine; ATTEND Internal Medicine

== ENCOUNTER 2019-03-20 02:12 | Inpatient (IN) ==
[2019-03-20] MEDS ORDERED: Ondansetron 4 MG/2 ML VIAL IVP ONE ×2 (02:23→06:38)
[2019-03-20] MEDS ORDERED: 0.9 % Sodium Chloride 1,000 ML IVC ONE (02:23)
--- NOTE | 2019-03-20 02:26 | Emergency Department Note ---
Disposition Clinical Impression: Atrial fibrillation with rapid ventricular response Left lower lobe pneumonia Qualifiers: Pneumonia type: due to unspecified organism Qualified Code(s): J18.1 - Lobar pneumonia, unspecified organism Nausea and vomiting Qualifiers: Vomiting type: unspecified Vomiting Intractability: unspecified Qualified Code(s): R11.2 - Nausea with vomiting, unspecified Disposition: Admitted As Inpatient Condition: Fair Referrals: Pratibha Covarrubias MD [Primary Care Provider] - Forms: ED Satisfaction Letter Time of Disposition: 06:53 Nausea/Vomiting/Diarrhea HPI - General Chief complaint: ED Nausea/Vomiting/Diarrhea Stated complaint: vomiting for 2 days/ A-fib Time Seen by Provider: 03/20/19 02:22 Source: patient, EMS Mode of arrival: EMS Limitations: no limitations Nursing Notes Reviewed: Yes Vital Signs Reviewed: Yes - History of Present Illness Pt Subjective Complaint: nausea, vomiting Onset (ago): day(s) (2 days) Description of emesis: food contents Associated Abdominal Pain: No Consistency: constant Improves with: nothing Worsens with: nonthing Associated symptoms: Denies: chest pain, fever/chills - Related Data Home Medications Medication Instructions Recorded Confirmed Amlodipine Besylate 5 mg PO DAILY 12/26/18 03/20/19 Atorvastatin Calcium [Lipitor] 20 mg PO DAILY 12/26/18 03/20/19 Donepezil [Aricept] 5 mg PO HS 12/26/18 03/20/19 Finasteride [Proscar] 5 mg PO DAILY 12/26/18 03/20/19 Potassium Chloride [K-Tab ER] 10 meq PO DAILY 12/26/18 03/20/19 Tamsulosin HCl [Flomax] 0.4 mg PO DAILY 12/26/18 03/20/19 Brimonidine Tartrate/Timolol 1 drop OP TID 12/28/18 03/20/19 [Combigan 0.2%-0.5% Eye Drops] Divalproex Sodium [Depakote] 125 mg PO BID 03/20/19 03/20/19 GlipiZIDE [Glipizide Xl] 5 mg PO DAILY 03/20/19 03/20/19 Insulin DETEMIR [Levemir Flextouch] 22 unit SQ BID 03/20/19 03/20/19 Oxycodone HCl [Roxybond] 5 mg PO BID PRN 03/20/19 03/20/19 Promethazine [Phenergan] 25 mg PO Q6HR PRN 03/20/19 03/20/19 Previous Rx's Medication Instructions Recorded Artificial Tears SOLN [Akwa Tears] 1 drop BOTH EYES QID PRN bottle 12/29/18 Clopidogrel [Plavix] 75 mg PO DAILY tablet 12/29/18 Docusate [Colace] 100 mg PO BID capsule 12/29/18 MOM Conc [MILK OF MAGNESIA conc] 10 ml PO DAILY PRN ud.[id number] 12/29/18 Mag Hydrox/Al Hydrox/Simeth 15 ml PO Q6HR PRN udc 12/29/18 [Maalox] Metoclopramide [Reglan] 5 mg PO BID 365 Days tablet 12/29/18 cloNIDine HCl [CloNIDine HCl] 0.1 mg PO BID tablet 12/29/18 metFORMIN [Glucophage] 500 mg PO BIDWM tablet 12/29/18 Allergies Allergy/AdvReac Type Severity Reaction Status Date / Time morphine Allergy See Verified 03/20/19 03:02 Comments Penicillins [PCN] Allergy Rash Verified 03/20/19 03:02 All systems ED: reviewed and negative except as stated. Constitutional: Denies: fever, chills ENT ED: Denies: ear pain, throat pain, congestion Cardiovascular: Reports: palpitations. Denies: chest pain Respiratory: Denies: cough, dyspnea Gastrointestinal: Reports: nausea, vomiting. Denies: abdominal pain, diarrhea Neurological: Denies: headache Past Medical History - Past Medical History Attestation: Yes The following information was validated with the patient. Source: patient, old records reviewed, nursing notes reviewed Medical history: Reports: CHF, COPD, coronary artery disease, diabetes, GI bleed, hypertension, renal disease, other Surgical history: Reports: angioplasty/stent, cholecystectomy, coronary bypass (CABG), orthopedic, other (Left knee replacement) Psychiatric history: Reports: no psych history - Social History Smoking Status: Former smoker Smokeless Tobacco Status: No Alcohol use: Reports: none Drug use: Reports: none Physical Exam - General Limitations: no limitations General appearance: alert, in no apparent distress - Head Head exam: atraumatic, normocephalic, normal inspection - Eye Eye exam: Present: normal appearance, PERRL, EOMI. Absent: scleral icterus, conjunctival injection - ENT ENT exam: normal exam, normal oropharynx, mucous membranes moist, normal external ear exam - Neck Neck exam: Present: normal inspection, full ROM, trachea midline. Absent: meningismus, thyromegaly - Chest Chest inspection: Present: normal inspection, symmetric chest wall rise. Absent: tenderness - Respiratory Respiratory exam: Present: normal lung sounds bilaterally. Absent: respiratory distress, wheezes - Cardiovascular Cardiovascular exam: Present: tachycardia, irregular rhythm - Abdominal Exam Abdominal exam: Present: soft, Non-Tender, normal bowel sounds - Extremities Exam Extremities exam: Present: normal inspection. Absent: tenderness - Neurological Exam Neurological exam: Present: alert, oriented X3 - Psychiatric Psychiatric exam: Present: normal affect, normal mood - Skin Skin exam: Present: warm, dry Course Course Narrative: Patient presents with 2 days of nausea and vomiting. We see that on the monitor he is going in and out of A. fib with RVR. Blood pressure is okay in either rhythm. He has no abdominal pain complaint. His belly exam is benign. Looking back in old records we see his had admissions for nausea and vomiting before. I am going to give him some Cardizem for the RVR. Anti-medics and IV fluids. We will get a workup going. Disposition will be based on diagnostic results and reevaluation. - Reevaluation(s) Reevaluation #1: Patient feels much better. Heart rate is controlled and he is continually in sinus rhythm now at a rate is 73. He is maintained on a drip of 5 mg per hour of Cardizem. Chest x-ray shows opacification in the left lower lobe concerning for pneumonia. I will start the patient on antibiotics. We will admit him to the hospital. Time: 04:50 Reevaluation #2: Patient has remained in sinus rhythm for several hours now. Heart rate of 80. Good blood pressure. He has received his first dose of antibiotics. He has required more anti-emetics. I spoken with the hospitalist, Dr. Bansal, who has accepted the patient for admission to the hospital. Time: 06:52 - Consultations Consultation #1: Dr. Bansal, hospitalist - I discussed the case with the hospitalist. He accepted the patient for admission. Time: 06:50 Vital Signs Temperature 98.8 F 03/20/19 02:13 Pulse Rate 104 03/20/19 02:13 Respiratory Rate 20 03/20/19 02:13 Blood Pressure 187/130 03/20/19 02:13 O2 Sat by Pulse Oximetry 97 03/20/19 02:13 Temperature 98.8 F 03/20/19 03:10 Pulse Rate 84 03/20/19 06:27 Respiratory Rate 12 03/20/19 06:27 Blood Pressure 175/83 03/20/19 06:27 O2 Sat by Pulse Oximetry 98 03/20/19 06:27 Oxygen Delivery Oxygen Delivery Room Air Nausea/Vomiting/Diarrhea - Medical Records Medical records reviewed: Yes I reviewed the patient's medical records. - Lab Data Lab results reviewed: Yes I reviewed the patient's lab results. Result diagrams: 03/20/19 02:30 03/20/19 02:30 Lab Results 03/20/19 03/20/19 03/20/19 Range/Units 02:25 02:30 02:30 WBC 15.5 H (4.3-11.1) K/mcL RBC 5.49 (4.19-5.50) M/mcL Hgb 16.6 (12.9-16.9) g/dL Hct 48.6 (37.5-50.1) % MCV 88.5 (83.0-100.0) fL MCH 30.2 (28.0-33.3) pg MCHC 34.2 (31.6-35.5) g/dL RDW 13.8 (11.5-14.5) % Plt Count 248 (140-400) K/mcL MPV 10.0 (9.4-12.4) fL Immature Gran % 0.3 (0-4) % Seg Neutrophils % 76.0 % Lymphocytes % 14.8 % Monocytes % 7.5 % Eosinophils % 0.8 % Basophils % 0.6 % Neutrophils # 11.8 H (1.6-8.9) K/mcL Lymphocytes # 2.3 (0.6-4.6) K/mcL Monocytes # 1.2 (0.0-1.3) K/mcL Eosinophils # 0.1 (0.0-0.6) K/mcL Basophils # 0.1 (0.0-0.2) K/mcL PT (9.4-12.1) Seconds INR APTT 39.1 H (26.0-36.0) Seconds VBG pH (7.32-7.42) pH Units Sodium (136-145) mEq/L Potassium (3.5-5.1) mEq/L Chloride (98-107) mEq/L Carbon Dioxide (23-29) mEq/L BUN (8-23) mg/dL Creatinine (0.70-1.30) mg/dL Est GFR ( Amer) (> 60) Est GFR (Non-Af Amer) (> 60) BUN/Creatinine Ratio (6-26) Glucose (70-105) mg/dL Calculated Osmolality (280-300) Lactic Acid (0.5-2.2) mmol/L Calcium (8.6-10.3) mg/dL Total Bilirubin (0.3-1.0) mg/dL Direct Bilirubin (0.0-0.2) mg/dL Indirect Bilirubin (0.0-1.2) mg/dL AST (13-39) Units/L ALT (7-52) Units/L Alkaline Phosphatase (34-104) Units/L Troponin I (< 0.04) ng/mL B-Natriuretic Peptide (Less than 100) pg/mL Serum Total Protein (6.4-8.9) g/dL Albumin (3.5-5.7) g/dL Globulin (2.4-3.5) g/dL Albumin/Globulin Ratio (1.1-2.2) Lipase (11-82) Units/L Beta-Hydroxybutyric Acd 1.05 H (0.02-0.27) mmol/L Urine Color (Yellow) Urine Clarity (Clear) Urine pH (5.0-8.0) pH Units Ur Specific Lov[place] (1.010-1.025) Urine Protein (Neg-Trace) mg/dL Urine Glucose (UA) (Normal) mg/dL Urine Ketones (Negative) mg/dL Urine Blood (Negative) Urine Nitrite (Negative) Urine Bilirubin (Negative) Urine Urobilinogen (Normal) mg/dL Ur Leukocyte Esterase (Negative) Urine Microscopic RBC (0-3) per hpf Urine Microscopic WBC (0-3) per hpf Ur Squamous Epith Cells (None-Few) per lpf Urine Bacteria (None-Few) per hpf Hyaline Casts (None-Few) per lpf Urine Mucus (Few) Ur Culture Indicated? (NO) 03/20/19 03/20/19 03/20/19 Range/Units 02:30 02:30 02:30 WBC (4.3-11.1) K/mcL RBC (4.19-5.50) M/mcL Hgb (12.9-16.9) g/dL Hct (37.5-50.1) % MCV (83.0-100.0) fL MCH (28.0-33.3) pg MCHC (31.6-35.5) g/dL RDW (11.5-14.5) % Plt Count (140-400) K/mcL MPV (9.4-12.4) fL Immature Gran % (0-4) % Seg Neutrophils % % Lymphocytes % % Monocytes % % Eosinophils % % Basophils % % Neutrophils # (1.6-8.9) K/mcL Lymphocytes # (0.6-4.6) K/mcL Monocytes # (0.0-1.3) K/mcL Eosinophils # (0.0-0.6) K/mcL Basophils # (0.0-0.2) K/mcL PT 13.1 H (9.4-12.1) Seconds INR 1.2 APTT (26.0-36.0) Seconds VBG pH (7.32-7.42) pH Units Sodium 142 (136-145) mEq/L Potassium 3.1 L (3.5-5.1) mEq/L Chloride 101 (98-107) mEq/L Carbon Dioxide 27 (23-29) mEq/L BUN 13 (8-23) mg/dL Creatinine 0.95 (0.70-1.30) mg/dL Est GFR ( Amer) > 60 (> 60) Est GFR (Non-Af Amer) > 60 (> 60) BUN/Creatinine Ratio 14 (6-26) Glucose 195 H (70-105) mg/dL Calculated Osmolality 299 (280-300) Lactic Acid (0.5-2.2) mmol/L Calcium 9.2 (8.6-10.3) mg/dL Total Bilirubin 0.8 (0.3-1.0) mg/dL Direct Bilirubin 0.2 (0.0-0.2) mg/dL Indirect Bilirubin 0.6 (0.0-1.2) mg/dL AST 12 L (13-39) Units/L ALT 10 (7-52) Units/L Alkaline Phosphatase 48 (34-104) Units/L Troponin I (< 0.04) ng/mL B-Natriuretic Peptide 236 H (Less than 100) pg/mL Serum Total Protein 7.6 (6.4-8.9) g/dL Albumin 4.6 (3.5-5.7) g/dL Globulin 3.0 (2.4-3.5) g/dL Albumin/Globulin Ratio 1.5 (1.1-2.2) Lipase (11-82) Units/L Beta-Hydroxybutyric Acd (0.02-0.27) mmol/L Urine Color (Yellow) Urine Clarity (Clear) Urine pH (5.0-8.0) pH Units Ur Specific Lovell (1.010-1.025) Urine Protein (Neg-Trace) mg/dL Urine Glucose (UA) (Normal) mg/dL Urine Ketones (Negative) mg/dL Urine Blood (Negative) Urine Nitrite (Negative) Urine Bilirubin (Negative) Urine Urobilinogen (Normal) mg/dL Ur Leukocyte Esterase (Negative) Urine Microscopic RBC (0-3) per hpf Urine Microscopic WBC (0-3) per hpf Ur Squamous Epith Cells (None-Few) per lpf Urine Bacteria (None-Few) per hpf Hyaline Casts (None-Few) per lpf Urine Mucus (Few) Ur Culture Indicated? (NO) 03/20/19 03/20/19 03/20/19 Range/Units 02:30 02:30 03:54 WBC (4.3-11.1) K/mcL RBC (4.19-5.50) M/mcL Hgb (12.9-16.9) g/dL Hct (37.5-50.1) % MCV (83.0-100.0) fL MCH (28.0-33.3) pg MCHC (31.6-35.5) g/dL RDW (11.5-14.5) % Plt Count (140-400) K/mcL MPV (9.4-12.4) fL Immature Gran % (0-4) % Seg Neutrophils % % Lymphocytes % % Monocytes % % Eosinophils % % Basophils % % Neutrophils # (1.6-8.9) K/mcL Lymphocytes # (0.6-4.6) K/mcL Monocytes # (0.0-1.3) K/mcL Eosinophils # (0.0-0.6) K/mcL Basophils # (0.0-0.2) K/mcL PT (9.4-12.1) Seconds INR APTT (26.0-36.0) Seconds VBG pH 7.42 (7.32-7.42) pH Units Sodium (136-145) mEq/L Potassium (3.5-5.1) mEq/L Chloride (98-107) mEq/L Carbon Dioxide (23-29) mEq/L BUN (8-23) mg/dL Creatinine (0.70-1.30) mg/dL Est GFR ( Amer) (> 60) Est GFR (Non-Af Amer) (> 60) BUN/Creatinine Ratio (6-26) Glucose (70-105) mg/dL Calculated Osmolality (280-300) Lactic Acid 2.6 H (0.5-2.2) mmol/L Calcium (8.6-10.3) mg/dL Total Bilirubin (0.3-1.0) mg/dL Direct Bilirubin (0.0-0.2) mg/dL Indirect Bilirubin (0.0-1.2) mg/dL AST (13-39) Units/L ALT (7-52) Units/L Alkaline Phosphatase (34-104) Units/L Troponin I < 0.03 (< 0.04) ng/mL B-Natriuretic Peptide (Less than 100) pg/mL Serum Total Protein (6.4-8.9) g/dL Albumin (3.5-5.7) g/dL Globulin (2.4-3.5) g/dL Albumin/Globulin Ratio (1.1-2.2) Lipase 24 (11-82) Units/L Beta-Hydroxybutyric Acd (0.02-0.27) mmol/L Urine Color (Yellow) Urine Clarity (Clear) Urine pH (5.0-8.0) pH Units Ur Specific [place] (1.010-1.025) Urine Protein (Neg-Trace) mg/dL Urine Glucose (UA) (Normal) mg/dL Urine Ketones (Negative) mg/dL Urine Blood (Negative) Urine Nitrite (Negative) Urine Bilirubin (Negative) Urine Urobilinogen (Normal) mg/dL Ur Leukocyte Esterase (Negative) Urine Microscopic RBC (0-3) per hpf Urine Microscopic WBC (0-3) per hpf Ur Squamous Epith Cells (None-Few) per lpf Urine Bacteria (None-Few) per hpf Hyaline Casts (None-Few) per lpf Urine Mucus (Few) Ur Culture Indicated? (NO) 03/20/19 Range/Units 04:05 WBC (4.3-11.1) K/mcL RBC (4.19-5.50) M/mcL Hgb (12.9-16.9) g/dL Hct (37.5-50.1) % MCV (83.0-100.0) fL MCH (28.0-33.3) pg MCHC (31.6-35.5) g/dL RDW (11.5-14.5) % Plt Count (140-400) K/mcL MPV (9.4-12.4) fL Immature Gran % (0-4) % Seg Neutrophils % % Lymphocytes % % Monocytes % % Eosinophils % % Basophils % % Neutrophils # (1.6-8.9) K/mcL Lymphocytes # (0.6-4.6) K/mcL Monocytes # (0.0-1.3) K/mcL Eosinophils # (0.0-0.6) K/mcL Basophils # (0.0-0.2) K/mcL PT (9.4-12.1) Seconds INR APTT (26.0-36.0) Seconds VBG pH (7.32-7.42) pH Units Sodium (136-145) mEq/L Potassium (3.5-5.1) mEq/L Chloride (98-107) mEq/L Carbon Dioxide (23-29) mEq/L BUN (8-23) mg/dL Creatinine (0.70-1.30) mg/dL Est GFR ( Amer) (> 60) Est GFR (Non-Af Amer) (> 60) BUN/Creatinine Ratio (6-26) Glucose (70-105) mg/dL Calculated Osmolality (280-300) Lactic Acid (0.5-2.2) mmol/L Calcium (8.6-10.3) mg/dL Total Bilirubin (0.3-1.0) mg/dL Direct Bilirubin (0.0-0.2) mg/dL Indirect Bilirubin (0.0-1.2) mg/dL AST (13-39) Units/L ALT (7-52) Units/L Alkaline Phosphatase (34-104) Units/L Troponin I (< 0.04) ng/mL B-Natriuretic Peptide (Less than 100) pg/mL Serum Total Protein (6.4-8.9) g/dL Albumin (3.5-5.7) g/dL Globulin (2.4-3.5) g/dL Albumin/Globulin Ratio (1.1-2.2) Lipase (11-82) Units/L Beta-Hydroxybutyric Acd (0.02-0.27) mmol/L Urine Color Light Yellow (Yellow) Urine Clarity Clear (Clear) Urine pH 7.0 (5.0-8.0) pH Units Ur Specific [place] 1.025 (1.010-1.025) Urine Protein 100 H (Neg-Trace) mg/dL Urine Glucose (UA) 100 H (Normal) mg/dL Urine Ketones 15 H (Negative) mg/dL Urine Blood Small H (Negative) Urine Nitrite Negative (Negative) Urine Bilirubin Negative (Negative) Urine Urobilinogen Normal (Normal) mg/dL Ur Leukocyte Esterase Negative (Negative) Urine Microscopic RBC 0-3 (0-3) per hpf Urine Microscopic WBC 0-3 (0-3) per hpf Ur Squamous Epith Cells Few (None-Few) per lpf Urine Bacteria Few (None-Few) per hpf Hyaline Casts Few (None-Few) per lpf Urine Mucus Few (Few) Ur Culture Indicated? YES A (NO) - Radiology Data Radiology results reviewed: Yes I reviewed the patient's radiology results. - EKG Data EKG attestation: Yes I reviewed and interpreted this EKG. EKG results narrative: Twelve-lead EKG #1 performed at 2:23 AM. Ordered, reviewed and interpreted by ED physician shows supraventricular rhythm at a rate of 192. Computer is reading it as SVT. I am concerned that its atrial fibrillation. Normal axis. Good hour progression across her precordium. Cannot really assess ischemic changes. Twelve-lead EKG #2 performed at 2:21 AM. Ordered, reviewed and interpreted by ED physician shows sinus tachycardia at a rate of 123 with frequent PVCs. Normal axis. Good hour progression across precordium. No obvious ischemic changes.
[2019-03-20 02:48] LABS: Basophils # 0.1 K/mcL (0.0-0.2); Basophils % 0.6 %; Eosinophils # 0.1 K/mcL (0.0-0.6); Eosinophils % 0.8 %; Hematocrit 48.6 % (37.5-50.1); Hemoglobin 16.6 g/dL (12.9-16.9); Immature Granulocytes % 0.3 % (0-4); Lymphocytes # 2.3 K/mcL (0.6-4.6); Lymphocytes % 14.8 %; Mean Corpuscular HGB Conc 34.2 g/dL (31.6-35.5); Mean Corpuscular Hemoglobin 30.2 pg (28.0-33.3); Mean Corpuscular Volume 88.5 fL (83.0-100.0); Monocytes # 1.2 K/mcL (0.0-1.3); Monocytes % 7.5 %; Neutrophils # 11.8 K/mcL (1.6-8.9); Platelet Count 248 K/mcL (140-400); Red Blood Count 5.49 M/mcL (4.19-5.50); Red Cell Distribution Width 13.8 % (11.5-14.5); White Blood Count 15.5 K/mcL (4.3-11.1)
[2019-03-20 02:50] LABS: INR 1.2; Prothrombin Time 13.1 Seconds (9.4-12.1)
[2019-03-20 03:00] LABS: Troponin I < 0.03 ng/mL (< 0.04)
[2019-03-20 03:03] LABS: Alanine Aminotransferase 10 Units/L (7-52); Albumin 4.6 g/dL (3.5-5.7); Albumin/Globulin Ratio 1.5 (1.1-2.2); Alkaline Phosphatase 48 Units/L (34-104); Aspartate Amino Transferase 12 Units/L (13-39); BUN/Creatinine Ratio 14 (6-26); Bilirubin,Direct 0.2 mg/dL (0.0-0.2); Bilirubin,Indirect 0.6 mg/dL (0.0-1.2); Bilirubin,Total 0.8 mg/dL (0.3-1.0); Blood Urea Nitrogen 13 mg/dL (8-23); Calcium 9.2 mg/dL (8.6-10.3); Carbon Dioxide 27 mEq/L (23-29); Chloride 101 mEq/L (98-107); Glucose 195 mg/dL (70-105); Lipase 24 Units/L (11-82); Osmolality,Calculated 299 (280-300); Potassium 3.1 mEq/L (3.5-5.1); Sodium 142 mEq/L (136-145); Total Protein 7.6 g/dL (6.4-8.9); eGFR For African Americans > 60 (> 60); eGFR For Non-African Americans > 60 (> 60)
[2019-03-20] MEDS ORDERED: 0.9 % Sodium Chloride 1,000 ML ONE (03:40)
[2019-03-20 03:58] LABS: VBG PH 7.42 pH Units (7.32-7.42)
[2019-03-20 04:25] LABS: Bilirubin,Urine Negative (Negative); Blood,Urine Small (Negative); Clarity,Urine Clear (Clear); Glucose,Urine (UA) 100 mg/dL (Normal); Ketones,Urine 15 mg/dL (Negative); Leukocyte Esterase,Urine Negative (Negative); Nitrite,Urine Negative (Negative); Protein,Urine 100 mg/dL (Neg-Trace); Specific Gravity,Urine 1.025 (1.010-1.025); Urobilinogen,Urine Normal (Normal)
[2019-03-20 04:26] LABS: Color,Urine Light Yellow (Yellow)
[2019-03-20 04:33] LABS: Squamous Epithelial Cell,Urine Few per lpf (None-Few)
[2019-03-20 04:34] LABS: Bacteria,Urine Few per hpf (None-Few); Mucus,Urine Few (Few)
[2019-03-20 04:35] LABS: Hyaline Casts,Urine Few per lpf (None-Few); RBC,Urine 0-3 per hpf (0-3); WBC,Urine 0-3 per hpf (0-3)
[2019-03-20] MEDS ORDERED: Azithromycin 500 MG in 0.9 % Sodium Chloride 250 ML IVPB ONE (04:47)
[2019-03-20] MEDS ORDERED: Mag Hydrox/Al Hydrox/Simeth 30 ML UDC PO PRN (08:21)
[2019-03-20] MEDS ORDERED: Ondansetron 4 MG/2 ML VIAL IVP PRN (08:21)
[2019-03-20] MEDS ORDERED: Naloxone 0.4 MG/ML INJ IVP PRN (08:21)
[2019-03-20] MEDS ORDERED: NON-FORMULARY MEDICATION 1 EACH EACH (Brimonidine Tartrate/Timolol [Combigan 0.2%-0.5% Eye OP SCH (09:00)
[2019-03-20] MEDS ORDERED: amLODIPine 5 MG TABLET PO SCH (09:00)
[2019-03-20] MEDS ORDERED: INSULIN DETEMIR 22 UNIT SQ SCH (09:00)
[2019-03-20] MEDS ORDERED: cloNIDine HCl 0.1 MG TABLET PO SCH (09:00)
[2019-03-20] MEDS: Insulin DETEMIR 100 UNIT/ML X5UNITS SQ SCH ×2 (09:20→20:17)
--- NOTE | 2019-03-20 11:08 | Internal Med History&Physical ---
Date of Encounter: 03/20/19 Time of Encounter: 10:50 Assessment and Plan (1) Atrial fibrillation with rapid ventricular response Current visit: Yes Status: Acute Duration unknown. He has converted to NSR with Cardizem drip. He will be started on Eliquis for CVA prophylaxis. Metoprolol will be started and amlodipine discontinued. Echocardiogram was done December 2018 and will not be repeated at this time. TSH will be checked. (2) Left lower lobe pneumonia Current visit: Yes Status: Acute He has been started on Rocephin and Zithromax. Lactobacillus will be added. Qualifiers: Pneumonia type: due to unspecified organism Qualified Code(s): J18.1 - Lobar pneumonia, unspecified organism (3) Nausea & vomiting Current visit: Yes Status: Acute Increase Reglan. Zofran will be given as needed. Qualifiers: Vomiting type: unspecified Vomiting Intractability: unspecified Qualified Code(s): R11.2 - Nausea with vomiting, unspecified (4) CHF (congestive heart failure) Current visit: No Status: Chronic Rx metoprolol. Qualifiers: Qualified Code(s): I50.33 - Acute on chronic diastolic (congestive) heart failure (5) Weakness Current visit: No Status: Acute PT and OT evaluations will be ordered. (6) Hypertension Current visit: No Status: Chronic Rx metoprolol and hold amlodipine. Qualifiers: Hypertension type: essential hypertension Qualified Code(s): I10 - Essential (primary) hypertension (7) Diabetes mellitus Current visit: No Status: Chronic Hemoglobin A1c was 9.1% on 12/30/2018. Recheck in a.m. Continue Levemir, glipizide, and Glucophage. Accu-Cheks with SSI have been ordered. Qualifiers: Diabetes mellitus type: type 2 Diabetes mellitus skilled nursing insulin use: without skilled nursing use Diabetes mellitus complication status: with kidney complications Diabetes mellitus complication detail: with chronic kidney disease Chronic kidney disease stage: stage 3 (moderate) Qualified Code(s): E11.22 - Type 2 diabetes mellitus with diabetic chronic kidney disease; N18.3 - Chronic kidney disease, stage 3 (moderate) (8) CVA (cerebral vascular accident) Current visit: No Status: Chronic Chronic. Continue Plavix. Qualifiers: CVA mechanism: unspecified Qualified Code(s): I63.9 - Cerebral infarction, unspecified (9) Hypokalemia Current visit: Yes Status: Acute Duration unknown. Potassium level was 3.1 in emergency room. Supplemental potassium has been ordered. Internal Medicine - H&P: HPI Chief complaint: Vomiting, AF with RVR, possible pneumonia Admitted From: Emergency Dept Plans for Post Hospital Care: Home History of present illness: Mr. De Anda is a 84 year old male who came to emergency room complaining of vomiting and diarrhea over the past 24-48 hours. He denies abdominal pain fevers chills or cough or chest pain. He was evaluated emergency room was found to have AF with RVR and possible pneumonia. He was admitted to [facility] floor for ongoing care needs. He denies previous episodes of atrial fibrillation. 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 Echocardiogram December 2018 showed LVEF of 55-60%. There was moderate aortic regurgitation. There was LV diastolic dysfunction with E/A ratio of 0.7. The interventricular septum and posterior wall thickness measurements were 1.40 and 1.00 cm respectively. There was LAE at 5.20 cm. Carotid Doppler study 09/29/2017 showed bilateral nonstenotic plaque. He denies DVT or pulmonary embolus. Past Med Surg Social Fam HX - Past Medical History Medical history: CHF, COPD, coronary artery disease, diabetes, GI bleed, hypertension, renal disease, other Additional medical history: home oxygen prn (mostly at night - Linda) Psychiatric history: no psych history - Past Surgical History Surgical History: angioplasty/stent, cholecystectomy, coronary bypass (CABG), orthopedic, other (Left knee replacement) Additional surgical history: left knee replacement, colonoscopy, chest sx unknown - Social History Smoking Status: Former smoker Smokeless Tobacco Status: No Alcohol use: none Drug use: none - Family History Brother Living Status: Still Living Hx Family Cancer: Yes (Lung) Hx Family Endocrine Disorder: Yes (DM) Father Living Status: Hx Family Cancer: Yes Mother Hx Family Cardiac Disorders: No Hx Family Cancer: No Internal Medicine - H&P: Meds Amlodipine Besylate 5 mg PO DAILY 12/26/18 [History] Atorvastatin Calcium [Lipitor] 20 mg PO DAILY 12/26/18 [History] Donepezil [Aricept] 5 mg PO HS 12/26/18 [History] Finasteride [Proscar] 5 mg PO DAILY 12/26/18 [History] Potassium Chloride [K-Tab ER] 10 meq PO DAILY 12/26/18 [History] Tamsulosin HCl [Flomax] 0.4 mg PO DAILY 12/26/18 [History] Brimonidine Tartrate/Timolol [Combigan 0.2%-0.5% Eye Drops] 1 drop OP TID 12/28/18 [History] Artificial Tears SOLN [Akwa Tears] 1 drop BOTH EYES QID PRN bottle 12/29/18 [Rx] Clopidogrel [Plavix] 75 mg PO DAILY tablet 12/29/18 [Rx] Docusate [Colace] 100 mg PO BID capsule 12/29/18 [Rx] MOM Conc [MILK OF MAGNESIA conc] 10 ml PO DAILY PRN ud.liq 12/29/18 [Rx] Mag Hydrox/Al Hydrox/Simeth [Maalox] 15 ml PO Q6HR PRN udc 12/29/18 [Rx] Metoclopramide [Reglan] 5 mg PO BID 365 Days tablet 12/29/18 [Rx] cloNIDine HCl [CloNIDine HCl] 0.1 mg PO BID tablet 12/29/18 [Rx] metFORMIN [Glucophage] 500 mg PO BIDWM tablet 12/29/18 [Rx] Divalproex Sodium [Depakote] 125 mg PO BID 03/20/19 [History] GlipiZIDE [Glipizide Xl] 5 mg PO DAILY 03/20/19 [History] Insulin DETEMIR [Levemir Flextouch] 22 unit SQ BID 03/20/19 [History] Oxycodone HCl [Roxybond] 5 mg PO BID PRN 03/20/19 [History] Promethazine [Phenergan] 25 mg PO Q6HR PRN 03/20/19 [History] Allergy/AdvReac Type Severity Reaction Status Date / Time morphine Allergy See Verified 03/20/19 03:02 Comments Penicillins [PCN] Allergy Rash Verified 03/20/19 03:02 All Systems PM: A 10-system review of systems was performed and is negative for pertinent findings except as documented above in the HPI. Review of systems: Review of systems from his December 2018 [facility] hospitalization were reviewed and revised as below. Gen.: His weight has decreased from 87.77 kg on 02/14/2017 to 78.018 kg today. Cardiovascular: As per history of present illness Respiratory: He smoked from age [age] up to 1 pack per day. He denies chronic lung disease and does not use home oxygen GI: He has had cholecystectomy. He denies disorders of his liver or exocrine pancreas. He states frequent nausea and vomiting have been present since approximately August 2018. No workup has been done. He was started empirically on Reglan for possible diabetic gastropathy at time of last [facility] discharge December 2018. : He denies hematuria dysuria or kidney stones Neurologic: MRI of the brain December 2018 showed a small focus of acute to subacute infarct in the right centrum semiovale. There were additional small infarcts seen scattered throughout the brain and brainstem. Carotid Doppler ricardo dy showed bilateral nonstenotic plaque. He was placed on Plavix. 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 There is no history of seizures. Endocrine: He was diagnosed with DM 2 approximately age 70. He has hyperlipidemia but denies thyroid disease. Hematology/oncology: He denies blood disorders cancers or anemia Psychiatric: He denies anxiety depression or other mental health issues [place] skeletal: He denies significant DJD gout or other bone joint or muscle disorders. - Constitutional Vitals: Temp Pulse Resp BP Pulse Ox 98.8 F 79 16 162/95 97 03/20/19 03:10 03/20/19 08:03 03/20/19 08:03 03/20/19 08:03 03/20/19 08:03 Exam: Gen.: He is a well-developed well-nourished male resting comfortably in bed who appears in no acute distress HEENT: Head is atraumatic and normocephalic. Eyes: EOMI. There is no scleral icterus. Mouth: Mucosa is moist. Neck: Supple and nontender. There is no thyromegaly or adenopathy noted. Heart: Regular without murmurs or gallops. There is an occasional ectopic beat. Rate is approximately 84/m. Lungs: No wheezes or crackles are heard. Abdomen: Soft and nontender. No masses or guarding are noted. Extremities: He is wearing GYPSY hose which I did not remove. There is no pitting edema of his lower legs through the GYPSY hose. He has mild DJD changes of his hands. Neurologic: Mental status: He is talkative and a fair to good historian. Cranial nerves: Smile is symmetric. Forehead wrinkles bilaterally. Tongue protrudes midline. EOMI. Motor: There is no pronator drift. Cerebellar: Finger to nose is intact bilaterally. Skin: Warm and dry Internal Med - H&P Results - Labs CBC & Chem 7: 03/20/19 02:30 03/20/19 02:30 Labs: Short CBC 03/20/19 Range/Units 02:30 WBC 15.5 H (4.3-11.1) K/mcL Hgb 16.6 (12.9-16.9) g/dL Hct 48.6 (37.5-50.1) % Plt Count 248 (140-400) K/mcL Neutrophils # 11.8 H (1.6-8.9) K/mcL BMP 03/20/19 02:30 Sodium 142 Potassium 3.1 L Chloride 101 Carbon Dioxide 27 BUN 13 Creatinine 0.95 Glucose 195 H Calcium 9.2 Cardiac Enzymes 03/20/19 Range/Units 02:30 Troponin I < 0.03 (< 0.04) ng/mL Liver Function 03/20/19 Range/Units 02:30 Total Bilirubin 0.8 (0.3-1.0) mg/dL Direct Bilirubin 0.2 (0.0-0.2) mg/dL AST 12 L (13-39) Units/L ALT 10 (7-52) Units/L Alkaline Phosphatase 48 (34-104) Units/L Albumin 4.6 (3.5-5.7) g/dL Urine 03/20/19 Range/Units 04:05 Urine Color Light Yellow (Yellow) Urine Clarity Clear (Clear) Urine pH 7.0 (5.0-8.0) pH Units Ur Specific [place] 1.025 (1.010-1.025) Urine Protein 100 H (Neg-Trace) mg/dL Urine Glucose (UA) 100 H (Normal) mg/dL - ABG Interpretation ABG results: 03/20/19 03:54 VBG pH 7.42 - Impressions ITS Impressions Chest X-Ray 03/20/19 03:16 IMPRESSION: New hazy opacification left lung base could be due to small effusion or infiltrate. D/ / Alex Godoy MD / Alex Godoy MD Interpreting Provider: Alex Godoy MD
[2019-03-20] MEDS: COMBIGAN OPTH OP SCH ×3 (11:26→20:18)
[2019-03-20] MEDS: *HR* Metformin 500 MG TABLET PO SCH ×2 (11:26→17:11)
[2019-03-20] MEDS: Divalproex Sodium 125 MG CAPSULE PO SCH ×2 (11:39→20:17)
[2019-03-20] MEDS: *HR* GlipiZIDE XL (24 HR) 2.5 MG TABLET PO SCH (11:39)
[2019-03-20] MEDS: Finasteride 5 MG TABLET PO SCH (11:41)
[2019-03-20] MEDS: Apixaban 5 MG TABLET PO SCH ×2 (12:54→20:17)
[2019-03-20] MEDS: Lactobacillus 1 EACH CAP.SPRINK PO SCH (20:17)
[2019-03-20] MEDS ORDERED: traZODone 50 MG TABLET PO SCH (21:00)
--- NOTE | 2019-03-20 21:53 | Electrocardiograph Report ---
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
--- NOTE | 2019-03-20 21:55 | Electrocardiograph Report ---
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
[2019-03-21] MEDS ORDERED: *HR* Metoprolol 5 MG/5 ML VIAL IVP ONE (03:47)
[2019-03-21] MEDS: Azithromycin 500 MG in 0.9 % Sodium Chloride 250 ML IVPB SCH (05:15)
[2019-03-21 06:13] LABS: Basophils # 0.1 K/mcL (0.0-0.2); Basophils % 0.8 %; Eosinophils # 0.3 K/mcL (0.0-0.6); Eosinophils % 2.8 %; Hematocrit 40.2 % (37.5-50.1); Hemoglobin 13.5 g/dL (12.9-16.9); Immature Granulocytes % 0.2 % (0-4); Lymphocytes # 2.9 K/mcL (0.6-4.6); Lymphocytes % 26.1 %; Mean Corpuscular HGB Conc 33.6 g/dL (31.6-35.5); Mean Corpuscular Volume 89.3 fL (83.0-100.0); Mean Platelet Volume 10.3 fL (9.4-12.4); Monocytes # 0.9 K/mcL (0.0-1.3); Monocytes % 8.2 %; Neutrophils # 6.7 K/mcL (1.6-8.9); Platelet Count 200 K/mcL (140-400); Red Cell Distribution Width 13.8 % (11.5-14.5); Segmented Neutrophils % 61.9 %; White Blood Count 10.9 K/mcL (4.3-11.1)
[2019-03-21] MEDS ORDERED: amLODIPine 5 MG TABLET PO ONE (06:33)
[2019-03-21 06:41] LABS: BUN/Creatinine Ratio 12 (6-26); Blood Urea Nitrogen 12 mg/dL (8-23); Calcium 8.7 mg/dL (8.6-10.3); Carbon Dioxide 27 mEq/L (23-29); Chloride 107 mEq/L (98-107); Glucose 104 mg/dL (70-105); Magnesium 1.5 mg/dL (1.6-2.6); Osmolality,Calculated 296 (280-300); Potassium 2.9 mEq/L (3.5-5.1); Sodium 143 mEq/L (136-145); eGFR For African Americans > 60 (> 60); eGFR For Non-African Americans > 60 (> 60)
[2019-03-21 06:54] LABS: Thyroid Stimulating Hormone 2.324 mcIU/mL (0.340-5.600)
[2019-03-21] MEDS: *HR* GlipiZIDE XL (24 HR) 2.5 MG TABLET PO SCH (08:07)
[2019-03-21] MEDS: Divalproex Sodium 125 MG CAPSULE PO SCH ×2 (08:07→21:03)
[2019-03-21] MEDS: Lactobacillus 1 EACH CAP.SPRINK PO SCH ×2 (08:07→21:03)
[2019-03-21] MEDS: Finasteride 5 MG TABLET PO SCH (08:07)
[2019-03-21] MEDS: Apixaban 5 MG TABLET PO SCH ×2 (08:08→21:04)
[2019-03-21] MEDS: *HR* Metformin 500 MG TABLET PO SCH ×2 (08:08→16:35)
[2019-03-21] MEDS: COMBIGAN OPTH OP SCH ×3 (08:11→21:04)
[2019-03-21] MEDS: Insulin DETEMIR 100 UNIT/ML X5UNITS SQ SCH ×2 (08:19→21:07)
[2019-03-21 09:14] LABS: Estimated Average Glucose 166 mg/dl
[2019-03-21] MEDS ORDERED: Potassium Chloride 40 MEQ, Lidocaine 1% 2 ML in 0.9 % Sodium Chloride 500 ML IVPB ONE (10:07)
[2019-03-21] MEDS: Magnesium Oxide 400 MG TABLET PO SCH (10:53)
[2019-03-21] MEDS: cloNIDine HCl 0.1 MG TABLET PO SCH ×2 (10:53→16:35)
--- NOTE | 2019-03-21 11:48 | Internal Med Progress Note ---
Date of Encounter: 03/21/19 Time of Encounter: 11:35 - Assessment and plan (1) Atrial fibrillation with rapid ventricular response Current Visit: Yes Status: Acute Assessment and plan: March 21. Remains in NSR. Continue Eliquis for CVA prophylaxis. Metoprolol dose will be increased to improve blood pressure control. TSH WNL. (2) Left lower lobe pneumonia Current Visit: Yes Status: Acute Assessment and plan: March 21. Continue Rocephin and Zithromax with lactobacillus. WBC WNL today with no left shift on differential. Remains afebrile. Qualifiers: Pneumonia type: due to unspecified organism Qualified Code(s): J18.1 - Lobar pneumonia, unspecified organism (3) Nausea & vomiting Current Visit: Yes Status: Acute Assessment and plan: March 21. Continue higher dose Reglan. Zofran as needed. Qualifiers: Vomiting type: unspecified Vomiting Intractability: unspecified Qualified Code(s): R11.2 - Nausea with vomiting, unspecified (4) CHF (congestive heart failure) Current Visit: No Status: Chronic Assessment and plan: March 21. Continue metoprolol. BN peptide decreased to 161. Qualifiers: Qualified Code(s): I50.33 - Acute on chronic diastolic (congestive) heart failure (5) Weakness Current Visit: No Status: Acute Assessment and plan: March 21. PT and OT evaluations were ordered. He does not wish to go to SNF and does not think he will need ongoing therapy in swing bed. (6) Hypertension Current Visit: No Status: Chronic Assessment and plan: March 21. Blood pressure significantly above desirable. Increase metoprolol. Restart amlodipine and clonidine. Qualifiers: Hypertension type: essential hypertension Qualified Code(s): I10 - Essential (primary) hypertension (7) Diabetes mellitus Current Visit: No Status: Chronic Assessment and plan: March 21. Hemoglobin A1c acceptable at 7.4%. Continue Levemir glipizide Glucophage and Accu-Cheks with SSI. Qualifiers: Diabetes mellitus type: type 2 Diabetes mellitus penitentiary insulin use: without buttermaker continuous churn use Diabetes mellitus complication status: with kidney complications Diabetes mellitus complication detail: with chronic kidney disease Chronic kidney disease stage: stage 3 (moderate) Qualified Code(s): E11.22 - Type 2 diabetes mellitus with diabetic chronic kidney disease; N18.3 - Chronic kidney disease, stage 3 (moderate) (8) CVA (cerebral vascular accident) Current Visit: No Status: Chronic Assessment and plan: March 21. Chronic. Continue Plavix. Qualifiers: CVA mechanism: unspecified Qualified Code(s): I63.9 - Cerebral infarction, unspecified (9) Hypokalemia Current Visit: Yes Status: Acute Assessment and plan: March 21. Potassium has decreased to 2.9. IV and oral potassium supplementation will be given. - Subjective Interval history: March 21. He has no new complaints. - Constitutional Vitals: Temp Pulse Resp BP Pulse Ox 97.2 F L 69 16 180/75 94 03/21/19 10:00 03/21/19 10:00 03/21/19 10:00 03/21/19 10:03/21/19 10:00 Exam: He is sitting in a chair at bedside resting comfortably. His affect is cheerful. Heart is regular without ectopics with rate approximately 80/m. Extremities show no pitting edema. Lungs are clear anteriorly. I reviewed his medications and lab results. Internal Medicine: Result - Labs CBC & Chem 7: 03/21/19 05:40 03/21/19 05:40 Labs: Short CBC 03/21/19 Range/Units 05:40 WBC 10.9 (4.3-11.1) K/mcL Hgb 13.5 D (12.9-16.9) g/dL Hct 40.2 (37.5-50.1) % Plt Count 200 (140-400) K/mcL Neutrophils # 6.7 (1.6-8.9) K/mcL BMP 03/21/19 05:40 Sodium 143 Potassium 2.9 L Chloride 107 Carbon Dioxide 27 BUN 12 Creatinine 1.01 Glucose 104 Calcium 8.7 - ABG Interpretation ABG results: PT/INR, D-dimer PT 13.1 Seconds (9.4-12.1) H 03/20/19 02:30 Consult Discharge Plan - Plan Referrals: Pratibha Covarrubias MD [Primary Care Provider] - 1 week
[2019-03-21 18:30] LABS: BUN/Creatinine Ratio 12 (6-26); Blood Urea Nitrogen 14 mg/dL (8-23); Calcium 8.7 mg/dL (8.6-10.3); Carbon Dioxide 25 mEq/L (23-29); Chloride 108 mEq/L (98-107); Glucose 161 mg/dL (70-105); Osmolality,Calculated 296 (280-300); Sodium 141 mEq/L (136-145); eGFR For African Americans > 60 (> 60); eGFR For Non-African Americans 57 (> 60)
[2019-03-22] MEDS: cloNIDine HCl 0.1 MG TABLET PO SCH ×3 (00:06→17:08)
[2019-03-22] MEDS: Azithromycin 500 MG in 0.9 % Sodium Chloride 250 ML IVPB SCH (06:06)
[2019-03-22 06:07] LABS: Basophils # 0.1 K/mcL (0.0-0.2); Basophils % 0.8 %; Eosinophils # 0.3 K/mcL (0.0-0.6); Eosinophils % 3.3 %; Hematocrit 37.2 % (37.5-50.1); Hemoglobin 12.4 g/dL (12.9-16.9); Immature Granulocytes % 0.2 % (0-4); Lymphocytes # 1.9 K/mcL (0.6-4.6); Lymphocytes % 22.4 %; Mean Corpuscular HGB Conc 33.3 g/dL (31.6-35.5); Mean Corpuscular Hemoglobin 29.9 pg (28.0-33.3); Mean Corpuscular Volume 89.6 fL (83.0-100.0); Mean Platelet Volume 10.1 fL (9.4-12.4); Monocytes # 0.7 K/mcL (0.0-1.3); Monocytes % 8.6 %; Neutrophils # 5.5 K/mcL (1.6-8.9); Platelet Count 172 K/mcL (140-400); Red Blood Count 4.15 M/mcL (4.19-5.50); Segmented Neutrophils % 64.7 %; White Blood Count 8.5 K/mcL (4.3-11.1)
[2019-03-22 06:33] LABS: BUN/Creatinine Ratio 15 (6-26); Blood Urea Nitrogen 16 mg/dL (8-23); Calcium 8.6 mg/dL (8.6-10.3); Carbon Dioxide 27 mEq/L (23-29); Chloride 107 mEq/L (98-107); Glucose 88 mg/dL (70-105); Osmolality,Calculated 295 (280-300); Potassium 3.4 mEq/L (3.5-5.1); Sodium 142 mEq/L (136-145); eGFR For African Americans > 60 (> 60); eGFR For Non-African Americans > 60 (> 60)
[2019-03-22] MEDS: *HR* GlipiZIDE XL (24 HR) 2.5 MG TABLET PO SCH (08:22)
[2019-03-22] MEDS: COMBIGAN OPTH OP SCH ×3 (08:22→21:02)
[2019-03-22] MEDS: Finasteride 5 MG TABLET PO SCH (08:23)
[2019-03-22] MEDS: Magnesium Oxide 400 MG TABLET PO SCH (08:23)
[2019-03-22] MEDS: amLODIPine 5 MG TABLET PO SCH (08:23)
[2019-03-22] MEDS: Divalproex Sodium 125 MG CAPSULE PO SCH ×2 (08:23→20:59)
[2019-03-22] MEDS: Lactobacillus 1 EACH CAP.SPRINK PO SCH ×2 (08:23→20:58)
[2019-03-22] MEDS: Apixaban 5 MG TABLET PO SCH ×2 (08:24→20:58)
[2019-03-22] MEDS: *HR* Metformin 500 MG TABLET PO SCH ×2 (08:24→17:07)
[2019-03-22] MEDS: Insulin DETEMIR 100 UNIT/ML X5UNITS SQ SCH ×2 (08:25→21:00)
--- NOTE | 2019-03-22 08:53 | Internal Med Progress Note ---
Date of Encounter: 03/22/19 Time of Encounter: 08:44 - Assessment and plan (1) Atrial fibrillation with rapid ventricular response Current Visit: Yes Status: Acute Assessment and plan: March 21. Remains in NSR. Continue Eliquis for CVA prophylaxis. Metoprolol dose will be increased to improve blood pressure control. TSH WNL. (2) Left lower lobe pneumonia Current Visit: Yes Status: Acute Assessment and plan: March 21. Continue Rocephin and Zithromax with lactobacillus. WBC WNL today with no left shift on differential. Remains afebrile. March 22. WBC remains WNL. Continue present Rx. Qualifiers: Pneumonia type: due to unspecified organism Qualified Code(s): J18.1 - Lobar pneumonia, unspecified organism (3) Nausea & vomiting Current Visit: Yes Status: Acute Assessment and plan: March 21. Continue higher dose Reglan. Zofran as needed. Qualifiers: Vomiting type: unspecified Vomiting Intractability: unspecified Qualified Code(s): R11.2 - Nausea with vomiting, unspecified (4) CHF (congestive heart failure) Current Visit: No Status: Chronic Assessment and plan: March 21. Continue metoprolol. BN peptide decreased to 161. Qualifiers: Qualified Code(s): I50.33 - Acute on chronic diastolic (congestive) heart failure (5) Weakness Current Visit: No Status: Acute Assessment and plan: March 21. PT and OT evaluations were ordered. He does not wish to go to SNF and does not think he will need ongoing therapy in swing bed. (6) Hypertension Current Visit: No Status: Chronic Assessment and plan: March 21. Blood pressure significantly above desirable. Increase metoprolol. Restart amlodipine and clonidine. Qualifiers: Hypertension type: essential hypertension Qualified Code(s): I10 - Essential (primary) hypertension (7) Diabetes mellitus Current Visit: No Status: Chronic Assessment and plan: March 21. Hemoglobin A1c acceptable at 7.4%. Continue Levemir glipizide Glucophage and Accu-Cheks with SSI. Qualifiers: Diabetes mellitus type: type 2 Diabetes mellitus adjunct faculty for medical terminology insulin use: without adjunct faculty for medical terminology use Diabetes mellitus complication status: with kidney complications Diabetes mellitus complication detail: with chronic kidney disease Chronic kidney disease stage: stage 3 (moderate) Qualified Code(s): E11.22 - Type 2 diabetes mellitus with diabetic chronic kidney disease; N18.3 - Chronic kidney disease, stage 3 (moderate) (8) CVA (cerebral vascular accident) Current Visit: No Status: Chronic Assessment and plan: March 21. Chronic. Continue Plavix. Qualifiers: CVA mechanism: unspecified Qualified Code(s): I63.9 - Cerebral infarction, unspecified (9) Hypokalemia Current Visit: Yes Status: Acute Assessment and plan: March 21. Potassium has decreased to 2.9. IV and oral potassium supplementation will be given. March 22. Potassium improved to 3.4. Increase oral potassium supplement. (10) Hypomagnesemia Current Visit: Yes Status: Acute Assessment and plan: March 22. Magnesium level I.5 yesterday. He was started on oral magnesium oxide. Recheck labs in a.m. (11) Anemia Current Visit: Yes Status: Acute Assessment and plan: March 22. Hemoglobin has decreased to 12.4. Anemia testing and other labs will be done in a.m. Stool guaiac will be ordered. Qualifiers: Anemia type: unspecified type Qualified Code(s): D64.9 - Anemia, unspecified - Subjective Interval history: March 21. He has no new complaints. March 22. He has no new complaints. - Constitutional Vitals: Temp Pulse Resp BP Pulse Ox 98.3 F 70 17 175/73 99 03/22/19 06:51 03/22/19 06:51 03/22/19 06:51 03/22/19 06:51 03/22/19 06:51 Exam: He is resting comfortably in bed and appears in no acute distress. He is minimally lethargic. He awakens and answers questions appropriately. Heart is regular without ectopics. Lungs are clear. I reviewed his medications and lab results. Internal Medicine: Result - Labs CBC & Chem 7: 03/22/19 06:00 03/22/19 06:00 Labs: Short CBC 03/22/19 Range/Units 06:00 WBC 8.5 (4.3-11.1) K/mcL Hgb 12.4 L (12.9-16.9) g/dL Hct 37.2 L (37.5-50.1) % Plt Count 172 (140-400) K/mcL Neutrophils # 5.5 (1.6-8.9) K/mcL BMP 03/21/19 03/22/19 18:01 06:00 Sodium 141 142 Potassium 4.0 D 3.4 L Chloride 108 H 107 Carbon Dioxide 25 27 BUN 14 16 Creatinine 1.21 1.10 Glucose 161 H 88 Calcium 8.7 8.6 - ABG Interpretation ABG results: PT/INR, D-dimer PT 13.1 Seconds (9.4-12.1) H 03/20/19 02:30 Consult Discharge Plan - Plan Referrals: Pratibha Covarrubias MD [Primary Care Provider] - 1 week
[2019-03-22] MEDS: *HR* OxyCODONE Immed Rel 5 MG TABLET PO PRN (11:24)
[2019-03-23] MEDS: cloNIDine HCl 0.1 MG TABLET PO SCH ×3 (00:50→15:51)
[2019-03-23] MEDS ORDERED: cloNIDine HCl 0.1 MG TABLET PO ONE (05:02)
[2019-03-23] MEDS: *HR* OxyCODONE Immed Rel 5 MG TABLET PO PRN (05:15)
[2019-03-23] MEDS: Artificial Tears SOLN 15 ML BOTTLE BOTH EYES PRN ×2 (05:19→08:05)
[2019-03-23] MEDS: Azithromycin 500 MG in 0.9 % Sodium Chloride 250 ML IVPB SCH (05:23)
[2019-03-23 07:23] LABS: Basophils # 0.1 K/mcL (0.0-0.2); Basophils % 0.7 %; Eosinophils # 0.3 K/mcL (0.0-0.6); Eosinophils % 2.9 %; Hematocrit 39.2 % (37.5-50.1); Hemoglobin 13.1 g/dL (12.9-16.9); Immature Granulocytes % 0.2 % (0-4); Lymphocytes # 1.6 K/mcL (0.6-4.6); Lymphocytes % 15.7 %; Mean Corpuscular HGB Conc 33.4 g/dL (31.6-35.5); Mean Corpuscular Hemoglobin 30.2 pg (28.0-33.3); Mean Corpuscular Volume 90.3 fL (83.0-100.0); Monocytes # 0.7 K/mcL (0.0-1.3); Monocytes % 6.9 %; Neutrophils # 7.3 K/mcL (1.6-8.9); Platelet Count 198 K/mcL (140-400); Red Blood Count 4.34 M/mcL (4.19-5.50); Red Cell Distribution Width 13.7 % (11.5-14.5); Segmented Neutrophils % 73.6 %
[2019-03-23 07:41] LABS: BUN/Creatinine Ratio 16 (6-26); Blood Urea Nitrogen 16 mg/dL (8-23); Carbon Dioxide 26 mEq/L (23-29); Chloride 105 mEq/L (98-107); Glucose 81 mg/dL (70-105); Osmolality,Calculated 290 (280-300); Potassium 3.3 mEq/L (3.5-5.1); Sodium 140 mEq/L (136-145); eGFR For African Americans > 60 (> 60); eGFR For Non-African Americans > 60 (> 60)
[2019-03-23] MEDS: Ondansetron 4 MG/2 ML VIAL IVP PRN ×2 (07:58→14:32)
[2019-03-23] MEDS: Insulin DETEMIR 100 UNIT/ML X5UNITS SQ SCH ×2 (08:02→21:04)
[2019-03-23] MEDS: COMBIGAN OPTH OP SCH ×3 (08:05→21:06)
[2019-03-23] MEDS: Lactobacillus 1 EACH CAP.SPRINK PO SCH ×2 (08:10→21:00)
[2019-03-23] MEDS: Finasteride 5 MG TABLET PO SCH (08:10)
[2019-03-23] MEDS: amLODIPine 5 MG TABLET PO SCH (08:10)
[2019-03-23] MEDS: Magnesium Oxide 400 MG TABLET PO SCH (08:10)
[2019-03-23] MEDS: Divalproex Sodium 125 MG CAPSULE PO SCH ×2 (08:11→20:59)
[2019-03-23] MEDS: *HR* Metformin 500 MG TABLET PO SCH ×2 (08:11→15:51)
[2019-03-23] MEDS: *HR* GlipiZIDE XL (24 HR) 2.5 MG TABLET PO SCH (08:11)
[2019-03-23] MEDS: Apixaban 5 MG TABLET PO SCH ×2 (08:11→21:00)
[2019-03-23 09:22] LABS: Folate 16.5 ng/mL (3.0-16.0)
--- NOTE | 2019-03-23 09:37 | Internal Med Progress Note ---
Date of Encounter: 03/23/19 Time of Encounter: 09:25 - Assessment and plan (1) Atrial fibrillation with rapid ventricular response Current Visit: Yes Status: Acute Assessment and plan: March 21. Remains in NSR. Continue Eliquis for CVA prophylaxis. Metoprolol dose will be increased to improve blood pressure control. TSH WNL. (2) Left lower lobe pneumonia Current Visit: Yes Status: Acute Assessment and plan: March 21. Continue Rocephin and Zithromax with lactobacillus. WBC WNL today with no left shift on differential. Remains afebrile. March 22. WBC remains WNL. Continue present Rx. Qualifiers: Pneumonia type: due to unspecified organism Qualified Code(s): J18.1 - Lobar pneumonia, unspecified organism (3) Nausea & vomiting Current Visit: Yes Status: Acute Assessment and plan: March 21. Continue higher dose Reglan. Zofran as needed. March 23. Trial of increase Reglan to 10 mg qid. Qualifiers: Vomiting type: unspecified Vomiting Intractability: unspecified Qualified Code(s): R11.2 - Nausea with vomiting, unspecified (4) CHF (congestive heart failure) Current Visit: No Status: Chronic Assessment and plan: March 21. Continue metoprolol. BN peptide decreased to 161. March 23. BN peptide WNL at 80. Continue present Rx. Qualifiers: Qualified Code(s): I50.33 - Acute on chronic diastolic (congestive) heart failure (5) Weakness Current Visit: No Status: Acute Assessment and plan: March 21. PT and OT evaluations were ordered. He does not wish to go to SNF and does not think he will need ongoing therapy in swing bed. March 23. He admits he is too weak to go home. He is agreeable to additional therapy at SNF/swing bed. (6) Hypertension Current Visit: No Status: Chronic Assessment and plan: March 21. Blood pressure significantly above desirable. Increase metoprolol. Restart amlodipine and clonidine. March 23. Blood pressure still elevated above desirable. Increase clonidine. Continue metoprolol and amlodipine. Qualifiers: Hypertension type: essential hypertension Qualified Code(s): I10 - Essential (primary) hypertension (7) Diabetes mellitus Current Visit: No Status: Chronic Assessment and plan: March 21. Hemoglobin A1c acceptable at 7.4%. Continue Levemir glipizide Glucophage and Accu-Cheks with SSI. 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 Chronic. Continue Plavix. Qualifiers: CVA mechanism: unspecified Qualified Code(s): I63.9 - Cerebral infarction, unspecified (9) Hypokalemia Current Visit: Yes Status: Acute Assessment and plan: March 21. Potassium has decreased to 2.9. IV and oral potassium supplementation will be given. March 22. Potassium improved to 3.4. Increase oral potassium supplement. March 23. Potassium 3.3 today. Give additional supplement. (10) Hypomagnesemia Current Visit: Yes Status: Acute Assessment and plan: March 22. Magnesium level I.5 yesterday. He was started on oral magnesium oxide. Recheck labs in a.m. March 23. Recheck labs in a.m. (11) Anemia Current Visit: Yes Status: Acute Assessment and plan: March 22. Hemoglobin has decreased to 12.4. Anemia testing and other labs will be done in a.m. Stool guaiac will be ordered. March 23. Stool guaiac positive. Hemoglobin has risen to 13.1. Iron studies pending. Continue to monitor. Qualifiers: Anemia type: unspecified type Qualified Code(s): D64.9 - Anemia, unspecified - Subjective Interval history: March 21. He has no new complaints. March 22. He has no new complaints. March 23. He complains of nausea. He has not vomited. He also feels generally weak. - Constitutional Vitals: Temp Pulse Resp BP Pulse Ox 97.5 F L 65 16 196/92 92 03/23/19 07:04 03/23/19 07:04 03/23/19 07:04 03/23/19 07:04 03/23/19 07:04 Exam: He is resting comfortably in bed and does not appear to be in pain. Abdomen shows bowel sounds present but diminished. The abdomen is nontender to palpation. Heart is regular without murmurs gallops or ectopics. Lungs are clear anteriorly. Extremities show no pitting edema. I reviewed his medications and lab results. Internal Medicine: Result - Labs CBC & Chem 7: 03/23/19 06:06 03/23/19 06:06 Labs: Short CBC 03/23/19 Range/Units 06:06 WBC 10.0 (4.3-11.1) K/mcL Hgb 13.1 (12.9-16.9) g/dL Hct 39.2 (37.5-50.1) % Plt Count 198 (140-400) K/mcL Neutrophils # 7.3 (1.6-8.9) K/mcL BMP 03/23/19 06:06 Sodium 140 Potassium 3.3 L Chloride 105 Carbon Dioxide 26 BUN 16 Creatinine 0.98 Glucose 81 Calcium 9.0 - ABG Interpretation ABG results: PT/INR, D-dimer PT 13.1 Seconds (9.4-12.1) H 03/20/19 02:30 Consult Discharge Plan - Plan Referrals: Pratibha Covarrubias MD [Primary Care Provider] - 1 week
[2019-03-23 09:44] LABS: % Iron Saturation 19 % (20-55); Iron 58 mcg/dL (65-175); Transferrin 213 mg/dL (203-362)
[2019-03-23 10:04] LABS: Ferritin 57 ng/mL (20-250)
[2019-03-24] MEDS: cloNIDine HCl 0.1 MG TABLET PO SCH ×2 (00:41→09:29)
[2019-03-24] MEDS: Azithromycin 500 MG in 0.9 % Sodium Chloride 250 ML IVPB SCH (06:14)
[2019-03-24] MEDS: Artificial Tears SOLN 15 ML BOTTLE BOTH EYES PRN (06:37)
[2019-03-24 07:39] LABS: BUN/Creatinine Ratio 18 (6-26); Blood Urea Nitrogen 23 mg/dL (8-23); Carbon Dioxide 27 mEq/L (23-29); Chloride 107 mEq/L (98-107); Glucose 69 mg/dL (70-105); Magnesium 2.1 mg/dL (1.6-2.6); Osmolality,Calculated 296 (280-300); Potassium 3.9 mEq/L (3.5-5.1); Sodium 142 mEq/L (136-145); eGFR For African Americans > 60 (> 60); eGFR For Non-African Americans 55 (> 60)
[2019-03-24 07:57] VITALS: BP 202/97
[2019-03-24] MEDS: Divalproex Sodium 125 MG CAPSULE PO SCH (09:29)
[2019-03-24] MEDS: Apixaban 5 MG TABLET PO SCH (09:29)
[2019-03-24] MEDS: Finasteride 5 MG TABLET PO SCH (09:31)
[2019-03-24] MEDS: Magnesium Oxide 400 MG TABLET PO SCH (09:31)
[2019-03-24] MEDS: amLODIPine 5 MG TABLET PO SCH (09:31)
[2019-03-24] MEDS: *HR* Metformin 500 MG TABLET PO SCH (09:31)
[2019-03-24] MEDS: Lactobacillus 1 EACH CAP.SPRINK PO SCH (09:31)
[2019-03-24] MEDS: *HR* GlipiZIDE XL (24 HR) 2.5 MG TABLET PO SCH (09:34)
[2019-03-24] MEDS: Insulin DETEMIR 100 UNIT/ML X5UNITS SQ SCH ×2 (09:34→11:36)
[2019-03-24] MEDS: COMBIGAN OPTH OP SCH (09:40)
--- NOTE | 2019-03-24 09:44 | Internal Med Progress Note ---
Date of Encounter: 03/24/19 Time of Encounter: 09:25 - Assessment and plan (1) Atrial fibrillation with rapid ventricular response Current Visit: Yes Status: Acute Assessment and plan: March 21. Remains in NSR. Continue Eliquis for CVA prophylaxis. Metoprolol dose will be increased to improve blood pressure control. TSH WNL. (2) Left lower lobe pneumonia Current Visit: Yes Status: Acute Assessment and plan: March 21. Continue Rocephin and Zithromax with lactobacillus. WBC WNL today with no left shift on differential. Remains afebrile. March 22. WBC remains WNL. Continue present Rx. March 24. Order chest x-ray to follow-up on complaints of dyspnea. Continue antibiotic/probiotic. Qualifiers: Pneumonia type: due to unspecified organism Qualified Code(s): J18.1 - Lobar pneumonia, unspecified organism (3) Nausea & vomiting Current Visit: Yes Status: Acute Assessment and plan: March 21. Continue higher dose Reglan. Zofran as needed. March 23. Trial of increase Reglan to 10 mg qid. Qualifiers: Vomiting type: unspecified Vomiting Intractability: unspecified Qualified Code(s): R11.2 - Nausea with vomiting, unspecified (4) CHF (congestive heart failure) Current Visit: No Status: Chronic Assessment and plan: March 21. Continue metoprolol. BN peptide decreased to 161. March 23. BN peptide WNL at 80. Continue present Rx. Qualifiers: Qualified Code(s): I50.33 - Acute on chronic diastolic (congestive) heart failure (5) Weakness Current Visit: No Status: Acute Assessment and plan: March 21. PT and OT evaluations were ordered. He does not wish to go to SNF and does not think he will need ongoing therapy in swing bed. March 23. He admits he is too weak to go home. He is agreeable to additional therapy at SNF/swing bed. (6) Hypertension Current Visit: No Status: Chronic Assessment and plan: March 21. Blood pressure significantly above desirable. Increase metoprolol. Restart amlodipine and clonidine. March 23. Blood pressure still elevated above desirable. Increase clonidine. Continue metoprolol and amlodipine. Qualifiers: Hypertension type: essential hypertension Qualified Code(s): I10 - Essential (primary) hypertension (7) Diabetes mellitus Current Visit: No Status: Chronic Assessment and plan: March 21. Hemoglobin A1c acceptable at 7.4%. Continue Levemir glipizide Glucophage and Accu-Cheks with SSI. 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 Chronic. Continue Plavix. Qualifiers: CVA mechanism: unspecified Qualified Code(s): I63.9 - Cerebral infarction, unspecified (9) Hypokalemia Current Visit: Yes Status: Acute Assessment and plan: March 21. Potassium has decreased to 2.9. IV and oral potassium supplementation will be given. March 22. Potassium improved to 3.4. Increase oral potassium supplement. March 23. Potassium 3.3 today. Give additional supplement. March 24. Potassium WNL at 3.9. Continue present Rx and monitor labs. (10) Hypomagnesemia Current Visit: Yes Status: Acute Assessment and plan: March 22. Magnesium level I.5 yesterday. He was started on oral magnesium oxide. Recheck labs in a.m. March 23. Recheck labs in a.m. March 24. Magnesium WNL at 2.1. Continue present Rx and monitor labs. (11) Anemia Current Visit: Yes Status: Acute Assessment and plan: March 22. Hemoglobin has decreased to 12.4. Anemia testing and other labs will be done in a.m. Stool guaiac will be ordered. March 23. Stool guaiac positive. Hemoglobin has risen to 13.1. Iron studies pending. Continue to monitor. March 24. Iron studies showed iron 58, transferrin saturation 19%, transfer rin 213, and ferritin 57. Hemoglobin WNL yesterday at 13.1. Continue to monitor. Qualifiers: Anemia type: unspecified type Qualified Code(s): D64.9 - Anemia, unspecified - Subjective Interval history: March 21. He has no new complaints. March 22. He has no new complaints. March 23. He complains of nausea. He has not vomited. He also feels generally weak. March 24. He complains of insomnia- "Never slept a wink". He also complains of dyspnea present for the last 2 days. - Constitutional Vitals: Temp Pulse Resp BP Pulse Ox 97.5 F L 80 18 202/97 93 03/24/19 07:55 03/24/19 07:55 03/24/19 07:55 03/24/19 07:55 03/24/19 07:55 Exam: He is resting in bed and appears in no acute distress. He does not appear dyspneic and is not tachypneic. Heart is regular without murmurs gallops or ect opics. Lungs are clear. Oxygen saturation is 93% on room air. I reviewed his medications and lab results. Internal Medicine: Result - Labs CBC & Chem 7: 03/23/19 06:06 03/24/19 05:59 Labs: BMP 03/24/19 05:59 Sodium 142 Potassium 3.9 Chloride 107 Carbon Dioxide 27 BUN 23 Creatinine 1.25 Glucose 69 L Calcium 9.0 - ABG Interpretation ABG results: PT/INR, D-dimer PT 13.1 Seconds (9.4-12.1) H 03/20/19 02:30 Consult Discharge Plan - Plan Referrals: Pratibha Covarrubias MD [Primary Care Provider] - 1 week
--- NOTE | 2019-03-24 11:06 | Discharge Summary ---
Orders not resulted at time of discharge: Pending orders 03/20/19 03:50 Culture,Blood [BC] Stat Date of Encounter: 03/24/19 Time of Encounter: 09:25 - Discharge Diagnosis (1) Atrial fibrillation with rapid ventricular response Priority: Primary Status: Acute (2) Left lower lobe pneumonia Priority: Secondary Status: Acute Qualifiers: Pneumonia type: due to unspecified organism Qualified Code(s): J18.1 - Lobar pneumonia, unspecified organism (3) Nausea & vomiting Priority: Secondary Status: Acute Qualifiers: Vomiting type: unspecified Vomiting Intractability: unspecified Qualified Code(s): R11.2 - Nausea with vomiting, unspecified (4) CHF (congestive heart failure) Priority: Secondary Status: Chronic Qualifiers: Qualified Code(s): I50.33 - Acute on chronic diastolic (congestive) heart failure (5) Weakness Priority: Secondary Status: Acute (6) Hypertension Priority: Secondary Status: Chronic Qualifiers: Hypertension type: essential hypertension Qualified Code(s): I10 - Essential (primary) hypertension (7) Diabetes mellitus Priority: Secondary Status: Chronic Qualifiers: Diabetes mellitus type: type 2 Diabetes mellitus detention insulin use: without buttermaker helper use Diabetes mellitus complication status: with kidney complications Diabetes mellitus complication detail: with chronic kidney disease Chronic kidney disease stage: stage 3 (moderate) Qualified Code(s): E11.22 - Type 2 diabetes mellitus with diabetic chronic kidney disease; N18.3 - Chronic kidney disease, stage 3 (moderate) (8) CVA (cerebral vascular accident) Priority: Secondary Status: Chronic Qualifiers: CVA mechanism: unspecified Qualified Code(s): I63.9 - Cerebral infarction, unspecified (9) Hypokalemia Priority: Secondary Status: Acute (10) Hypomagnesemia Priority: Secondary Status: Acute (11) Anemia Priority: Secondary Status: Acute Qualifiers: Anemia type: unspecified type Qualified Code(s): D64.9 - Anemia, unspecified Hospital course: Mr. De Anda is a 84 year old male who came to emergency room complaining of vomiting and diarrhea over the past 24-48 hours. He denies abdominal pain fevers chills or cough or chest pain. He was evaluated emergency room was found to have AF with RVR and possible pneumonia. He was admitted to [facility] floor for ongoing care needs. I saw him March 20 and performed a history and physical. Duration of AF was unknown. He had converted to NSR on Cardizem drip by the time I saw him. He was started on Eliquis for CVA prophylaxis and this was tolerated well. Metoprolol was also started. Echocardiogram was not repeated since done December 2018. TSH returned WNL. He remained in NSR through the remainder of his hospital stay. He was started empirically on Rocephin and Zithromax with lactobacillus for pneumonia. He had clinical improvement with WBC normalizing by March 21 and remaining WNL through the remainder of his hospital stay. He will continue with antibiotics and probiotic for 2 additional days at discharge. Reglan dose was increased to 10 mg ac/hs and Zofran was given for breakthrough nausea. BN peptide normalized to 80 on 03/23/2019. PT and OT evaluation was ordered with ongoing intervention done. He made slight progress. He will continue with therapy in swing bed. Blood pressure remained above desirable level initially. Medications were increased with improvement and further monitoring and dose adjustment will be done in swing bed. Hemoglobin A1c returned minimally elevated at 7.4% on 03/21/2019. Accu-Cheks were acceptable. He will continue metformin, glipizide, Levemir and Accu-Cheks with SSI. Supplemental potassium was given and hypokalemia resolved by day of discharge. Magnesium level returned slightly low at 1.5 on 03/21/2019. Supplemental magnesium was given and magnesium level returned WNL by day of discharge to swing bed. Anemia testing showed iron 58, transferrin saturation 19%, transferrin 213, ferritin 57, B12 3 and 49, and folate 16.5. Hemoglobin returned WNL at 13.1 on March 23. This will be monitored in swing bed. The patient requested discharge to local SNF but no beds were available at his selected facility. He will be discharged to swing bed 03/24/2019 for ongoing care needs. - Time Spent with Patient Total time spent providing and/or coordinating discharge services: - Discharge Medications Prescriptions: New Zolpidem [Ambien] 2.5 mg PO HS tablet Lactobacillus [Culturelle] 1 each PO BID 2 Days cap.sprink Metoprolol [Lopressor] 50 mg PO BID tablet Patient Taking Own Medication 0 each OP TID each Potassium Chloride 20 meq PO BID tab.er.prt Metoclopramide [Reglan] 10 mg PO ACHS tablet cefTRIAXone [Rocephin] 1,000 mg IVPB DAILY 2 Days vial Azithromycin [Zithromax] 500 mg IVPB Q24H 2 Days vial cloNIDine HCl [CloNIDine HCl] 0.2 mg PO Q8HR tablet Apixaban [Eliquis] 5 mg PO BID tablet amLODIPine [Norvasc] 5 mg PO DAILY tablet Continued Amlodipine Besylate 5 mg PO DAILY Atorvastatin Calcium [Lipitor] 20 mg PO DAILY Donepezil [Aricept] 5 mg PO HS Finasteride [Proscar] 5 mg PO DAILY Tamsulosin HCl [Flomax] 0.4 mg PO DAILY Brimonidine Tartrate/Timolol [Combigan 0.2%-0.5% Eye Drops] 1 drop OP TID Artificial Tears SOLN [Akwa Tears] 1 drop BOTH EYES QID PRN bottle PRN Reason: Dry Eyes Docusate [Colace] 100 mg PO BID capsule metFORMIN [Glucophage] 500 mg PO BIDWM tablet Mag Hydrox/Al Hydrox/Simeth [Maalox] 15 ml PO Q6HR PRN udc PRN Reason: Dyspepsia MOM Conc [MILK OF MAGNESIA conc] 10 ml PO DAILY PRN ud.liq PRN Reason: Constipation Clopidogrel [Plavix] 75 mg PO DAILY tablet Divalproex Sodium [Depakote] 125 mg PO BID Promethazine [Phenergan] 25 mg PO Q6HR PRN PRN Reason: Nausea GlipiZIDE [Glipizide Xl] 5 mg PO DAILY Oxycodone HCl [Roxybond] 5 mg PO BID PRN PRN Reason: Pain Insulin DETEMIR [Levemir Flextouch] 22 unit SQ BID Discontinued Potassium Chloride [K-Tab ER] 10 meq PO DAILY cloNIDine HCl [CloNIDine HCl] 0.1 mg PO BID tablet Metoclopramide [Reglan] 5 mg PO BID 365 Days tablet Home Medications: Amlodipine Besylate 5 mg PO DAILY 12/26/18 [History] Atorvastatin Calcium [Lipitor] 20 mg PO DAILY 12/26/18 [History] Donepezil [Aricept] 5 mg PO HS 12/26/18 [History] Finasteride [Proscar] 5 mg PO DAILY 12/26/18 [History] Tamsulosin HCl [Flomax] 0.4 mg PO DAILY 12/26/18 [History] Brimonidine Tartrate/Timolol [Combigan 0.2%-0.5% Eye Drops] 1 drop OP TID [History] Artificial Tears SOLN [Akwa Tears] 1 drop BOTH EYES QID PRN bottle 12/29/18 [Rx] Clopidogrel [Plavix] 75 mg PO DAILY tablet 12/29/18 [Rx] Docusate [Colace] 100 mg PO BID capsule 12/29/18 [Rx] MOM Conc [MILK OF MAGNESIA conc] 10 ml PO DAILY PRN ud.liq 12/29/18 [Rx] Mag Hydrox/Al Hydrox/Simeth [Maalox] 15 ml PO Q6HR PRN udc 12/29/18 [Rx] metFORMIN [Glucophage] 500 mg PO BIDWM tablet 12/29/18 [Rx] Divalproex Sodium [Depakote] 125 mg PO BID 03/20/19 [History] GlipiZIDE [Glipizide Xl] 5 mg PO DAILY 03/20/19 [History] Insulin DETEMIR [Levemir Flextouch] 22 unit SQ BID 03/20/19 [History] Oxycodone HCl [Roxybond] 5 mg PO BID PRN 03/20/19 [History] Promethazine [Phenergan] 25 mg PO Q6HR PRN 03/20/19 [History] Apixaban [Eliquis] 5 mg PO BID tablet 03/24/19 [Rx] Azithromycin [Zithromax] 500 mg IVPB Q24H 2 Days vial 03/24/19 [Rx] Lactobacillus [Culturelle] 1 each PO BID 2 Days cap.sprink 03/24/19 [Rx] Metoclopramide [Reglan] 10 mg PO ACHS tablet 03/24/19 [Rx] Metoprolol [Lopressor] 50 mg PO BID tablet 03/24/19 [Rx] Patient Taking Own Medication 0 each OP TID each 03/24/19 [Rx] Potassium Chloride 20 meq PO BID tab.er.prt 03/24/19 [Rx] Zolpidem [Ambien] 2.5 mg PO HS tablet 03/24/19 [Rx] amLODIPine [Norvasc] 5 mg PO DAILY tablet 03/24/19 [Rx] cefTRIAXone [Rocephin] 1,000 mg IVPB DAILY 2 Days vial 03/24/19 [Rx] cloNIDine HCl [CloNIDine HCl] 0.2 mg PO Q8HR tablet 03/24/19 [Rx] Allergies/Adverse Reactions: Allergy/AdvReac Type Severity Reaction Status Date / Time morphine Allergy See Verified 03/20/19 03:02 Comments Penicillins [PCN] Allergy Rash Verified 03/20/19 03:02 Date of admission: 03/20/19 12:23 Primary care physician: Pratibha Covarrubias MD Consults: 03/20/19 11:49 Consult to Occupational Therapy [CONS] Routine Comment: Evaluate, develop and implement POC Reason for Consult: Weakness Does patient have active BEDREST order?: No Is patient medically & hemodynamically stable?: Yes Patient assessed for mobility or mobilized this visit?: Yes Consult to Physical Therapy [CONS] Routine Comment: Evaluate, develop and implement POC Reason for Consult: Weakness Does patient have active BEDREST order?: No Is patient medically & hemodynamically stable?: Yes Patient assessed for mobility or mobilized this visit?: Yes - Constitutional Vitals: Temp Pulse Resp BP Pulse Ox 97.5 F L 80 18 202/97 93 03/24/19 07:55 03/24/19 07:55 03/24/19 07:55 03/24/19 07:55 03/24/19 07:55 - Patient Status Disposition: Transfer Hospital Swing Bed Condition: Fair - Discharge Instructions - Diet and Activity Activity: as per physical therapy Diet: diabetic diet
== END 2019-03-24 13:05 | disposition other institution (70) | DRG 308 ==
LOC: EMEROOPIK 02:12 → INPPIK 02:12
PROVIDERS: ADMIT Internal Medicine; ATTEND Internal Medicine

== ENCOUNTER 2019-03-24 10:36 | Inpatient (IN) ==
[2019-03-24] MEDS ORDERED: Mag Hydrox/Al Hydrox/Simeth 30 ML UDC PO PRN (13:13)
[2019-03-24] MEDS ORDERED: MOM Conc 10 ML UD.LIQ PO PRN (13:13)
[2019-03-24] MEDS ORDERED: Artificial Tears SOLN 15 ML BOTTLE BOTH EYES PRN (13:13)
[2019-03-24] MEDS ORDERED: Azithromycin 500 MG VIAL IVPB SCH (14:00)
[2019-03-24] MEDS ORDERED: NON-FORMULARY MEDICATION 1 EACH EACH (Brimonidine Tartrate/Timolol [Combigan 0.2%-0.5% Eye OP SCH (15:00)
[2019-03-24] MEDS: *HR* OxyCODONE Immed Rel 5 MG TABLET PO PRN (15:09)
[2019-03-24] MEDS: *HR* Metformin 500 MG TABLET PO SCH (16:35)
[2019-03-24] MEDS: cloNIDine HCl 0.1 MG TABLET PO SCH (16:35)
[2019-03-24] MEDS: Divalproex Sodium 125 MG CAPSULE PO SCH (19:52)
[2019-03-24] MEDS: Apixaban 5 MG TABLET PO SCH (19:52)
[2019-03-24] MEDS: Lactobacillus 1 EACH CAP.SPRINK PO SCH (19:52)
[2019-03-24] MEDS: Insulin DETEMIR 100 UNIT/ML X5UNITS SQ SCH (19:56)
[2019-03-25] MEDS: cloNIDine HCl 0.1 MG TABLET PO SCH ×4 (00:09→23:21)
[2019-03-25] MEDS ORDERED: traZODone 50 MG TABLET PO ONE ×2 (00:52→01:12)
[2019-03-25] MEDS: Azithromycin 500 MG in 0.9 % Sodium Chloride 250 ML IVPB SCH (06:08)
[2019-03-25 06:29] LABS: Basophils # 0.1 K/mcL (0.0-0.2); Basophils % 0.6 %; Eosinophils # 0.3 K/mcL (0.0-0.6); Hematocrit 37.1 % (37.5-50.1); Hemoglobin 12.3 g/dL (12.9-16.9); Immature Granulocytes % 0.2 % (0-4); Lymphocytes # 2.1 K/mcL (0.6-4.6); Lymphocytes % 22.8 %; Mean Corpuscular HGB Conc 33.2 g/dL (31.6-35.5); Mean Corpuscular Volume 90.5 fL (83.0-100.0); Mean Platelet Volume 10.8 fL (9.4-12.4); Monocytes # 0.8 K/mcL (0.0-1.3); Monocytes % 8.2 %; Neutrophils # 6.1 K/mcL (1.6-8.9); Platelet Count 208 K/mcL (140-400); Red Cell Distribution Width 14.1 % (11.5-14.5); Segmented Neutrophils % 65.2 %; White Blood Count 9.3 K/mcL (4.3-11.1)
[2019-03-25 06:52] LABS: Calcium 8.9 mg/dL (8.6-10.3); Potassium 4.4 mEq/L (3.5-5.1)
[2019-03-25 07:11] LABS: INR 1.6; Prothrombin Time 18.6 Seconds (9.4-12.1)
[2019-03-25 07:14] LABS: Activated Partial Thrombo Time 44.4 Seconds (26.0-36.0)
[2019-03-25] MEDS: cefTRIAXone 1,000 MG in Water for inj. (sterile) 10 ML IVP SCH (08:51)
[2019-03-25] MEDS: Lactobacillus 1 EACH CAP.SPRINK PO SCH ×2 (08:52→20:53)
[2019-03-25] MEDS: Finasteride 5 MG TABLET PO SCH (08:52)
[2019-03-25] MEDS: *HR* Metformin 500 MG TABLET PO SCH ×2 (08:53→15:51)
[2019-03-25] MEDS: Divalproex Sodium 125 MG CAPSULE PO SCH ×2 (08:53→20:52)
[2019-03-25] MEDS: amLODIPine 5 MG TABLET PO SCH (08:53)
[2019-03-25] MEDS: Apixaban 5 MG TABLET PO SCH ×2 (08:53→20:52)
[2019-03-25] MEDS: Insulin DETEMIR 100 UNIT/ML X5UNITS SQ SCH ×3 (08:55→20:53)
[2019-03-25] MEDS: *HR* GlipiZIDE XL (24 HR) 2.5 MG TABLET PO SCH (08:55)
[2019-03-25] MEDS ORDERED: CefTRIAXone 1,000 MG VIAL IVPB SCH (09:00)
[2019-03-25] MEDS ORDERED: amLODIPine 5 MG TABLET PO SCH (09:00)
[2019-03-25] MEDS: *HR* OxyCODONE Immed Rel 5 MG TABLET PO PRN (15:51)
[2019-03-26] MEDS: Azithromycin 500 MG in 0.9 % Sodium Chloride 250 ML IVPB SCH (06:29)
[2019-03-26 08:04] LABS: Basophils # 0.1 K/mcL (0.0-0.2); Basophils % 0.7 %; Eosinophils # 0.3 K/mcL (0.0-0.6); Eosinophils % 2.7 %; Hematocrit 38.1 % (37.5-50.1); Hemoglobin 12.5 g/dL (12.9-16.9); Immature Granulocytes % 0.2 % (0-4); Lymphocytes # 1.6 K/mcL (0.6-4.6); Lymphocytes % 15.9 %; Mean Corpuscular HGB Conc 32.8 g/dL (31.6-35.5); Mean Corpuscular Hemoglobin 29.6 pg (28.0-33.3); Mean Corpuscular Volume 90.1 fL (83.0-100.0); Mean Platelet Volume 11.1 fL (9.4-12.4); Monocytes # 0.9 K/mcL (0.0-1.3); Monocytes % 9.2 %; Neutrophils # 7.3 K/mcL (1.6-8.9); Platelet Count 211 K/mcL (140-400); Red Blood Count 4.23 M/mcL (4.19-5.50); Red Cell Distribution Width 13.9 % (11.5-14.5); Segmented Neutrophils % 71.3 %; White Blood Count 10.2 K/mcL (4.3-11.1)
[2019-03-26 08:17] LABS: BUN/Creatinine Ratio 23 (6-26); Blood Urea Nitrogen 23 mg/dL (8-23); Calcium 8.8 mg/dL (8.6-10.3); Carbon Dioxide 28 mEq/L (23-29); Chloride 105 mEq/L (98-107); Glucose 65 mg/dL (70-105); Osmolality,Calculated 292 (280-300); Potassium 3.8 mEq/L (3.5-5.1); Sodium 140 mEq/L (136-145); eGFR For African Americans > 60 (> 60); eGFR For Non-African Americans > 60 (> 60)
[2019-03-26] MEDS: cefTRIAXone 1,000 MG in Water for inj. (sterile) 10 ML IVP SCH (09:56)
[2019-03-26] MEDS: cloNIDine HCl 0.1 MG TABLET PO SCH ×3 (10:00→22:51)
[2019-03-26] MEDS: Finasteride 5 MG TABLET PO SCH (10:00)
[2019-03-26] MEDS: Divalproex Sodium 125 MG CAPSULE PO SCH ×2 (10:00→21:43)
[2019-03-26] MEDS: amLODIPine 5 MG TABLET PO SCH (10:00)
[2019-03-26] MEDS: Apixaban 5 MG TABLET PO SCH ×2 (10:00→21:42)
[2019-03-26] MEDS: *HR* Metformin 500 MG TABLET PO SCH (10:00)
[2019-03-26] MEDS: *HR* GlipiZIDE XL (24 HR) 2.5 MG TABLET PO SCH (10:01)
[2019-03-26] MEDS: Lactobacillus 1 EACH CAP.SPRINK PO SCH (10:01)
[2019-03-26] MEDS: Insulin DETEMIR 100 UNIT/ML X5UNITS SQ SCH ×3 (10:01→21:47)
[2019-03-26] MEDS: *HR* OxyCODONE Immed Rel 5 MG TABLET PO PRN (21:41)
[2019-03-26] MEDS ORDERED: amLODIPine 5 MG TABLET PO ONE (23:15)
[2019-03-27] MEDS ORDERED: *HR* LORazepam 0.5 MG TABLET PO ONE (00:28)
[2019-03-27] MEDS: Apixaban 5 MG TABLET PO SCH ×2 (08:24→20:54)
[2019-03-27] MEDS: amLODIPine 5 MG TABLET PO SCH ×2 (08:25→20:54)
[2019-03-27] MEDS: Divalproex Sodium 125 MG CAPSULE PO SCH ×2 (08:25→20:54)
[2019-03-27] MEDS: Finasteride 5 MG TABLET PO SCH (08:25)
[2019-03-27] MEDS: cloNIDine HCl 0.1 MG TABLET PO SCH ×3 (08:25→23:31)
[2019-03-27] MEDS: Ondansetron ODT 4 MG TAB.RAPDIS SL PRN (08:25)
[2019-03-27] MEDS: Insulin DETEMIR 100 UNIT/ML X5UNITS SQ SCH (11:59)
[2019-03-27] MEDS: *HR* OxyCODONE Immed Rel 5 MG TABLET PO PRN (20:54)
[2019-03-27] MEDS ORDERED: Insulin DETEMIR 100 UNIT/ML per UNIT SQ ONE (21:00)
[2019-03-28] MEDS ORDERED: traZODone 50 MG TABLET PO ONE (00:19)
[2019-03-28] MEDS: Divalproex Sodium 125 MG CAPSULE PO SCH ×2 (08:41→21:02)
[2019-03-28] MEDS: Apixaban 5 MG TABLET PO SCH ×2 (08:41→21:02)
[2019-03-28] MEDS: amLODIPine 5 MG TABLET PO SCH ×2 (08:42→21:02)
[2019-03-28] MEDS: Finasteride 5 MG TABLET PO SCH (08:42)
[2019-03-28] MEDS: cloNIDine HCl 0.1 MG TABLET PO SCH ×2 (08:42→17:17)
[2019-03-28] MEDS: Insulin DETEMIR 100 UNIT/ML X5UNITS SQ SCH ×2 (08:47→21:02)
[2019-03-28] MEDS: *HR* OxyCODONE Immed Rel 5 MG TABLET PO PRN (08:49)
[2019-03-29] MEDS: cloNIDine HCl 0.1 MG TABLET PO SCH ×3 (00:34→17:56)
[2019-03-29] MEDS: *HR* OxyCODONE Immed Rel 5 MG TABLET PO PRN ×2 (00:36→21:16)
[2019-03-29] MEDS: amLODIPine 5 MG TABLET PO SCH ×2 (08:43→21:04)
[2019-03-29] MEDS: Apixaban 5 MG TABLET PO SCH ×2 (08:43→21:05)
[2019-03-29] MEDS: Divalproex Sodium 125 MG CAPSULE PO SCH ×2 (08:43→21:05)
[2019-03-29] MEDS: Finasteride 5 MG TABLET PO SCH (08:44)
[2019-03-29] MEDS: Insulin DETEMIR 100 UNIT/ML X5UNITS SQ SCH ×2 (08:49→21:06)
[2019-03-30] MEDS: cloNIDine HCl 0.1 MG TABLET PO SCH ×3 (00:15→16:33)
[2019-03-30 05:59] LABS: BUN/Creatinine Ratio 29 (6-26); Blood Urea Nitrogen 29 mg/dL (8-23); Calcium 9.3 mg/dL (8.6-10.3); Carbon Dioxide 27 mEq/L (23-29); Chloride 107 mEq/L (98-107); Glucose 118 mg/dL (70-105); Osmolality,Calculated 299 (280-300); Potassium 4.2 mEq/L (3.5-5.1); Sodium 141 mEq/L (136-145); eGFR For African Americans > 60 (> 60); eGFR For Non-African Americans > 60 (> 60)
[2019-03-30] MEDS: Divalproex Sodium 125 MG CAPSULE PO SCH ×2 (08:09→22:00)
[2019-03-30] MEDS: Apixaban 5 MG TABLET PO SCH ×2 (08:09→22:01)
[2019-03-30] MEDS: amLODIPine 5 MG TABLET PO SCH ×2 (08:09→22:01)
[2019-03-30] MEDS: Finasteride 5 MG TABLET PO SCH (08:10)
[2019-03-30] MEDS: Insulin DETEMIR 100 UNIT/ML X5UNITS SQ SCH ×2 (08:13→22:10)
[2019-03-30] MEDS: *HR* OxyCODONE Immed Rel 5 MG TABLET PO PRN (22:04)
[2019-03-31] MEDS: cloNIDine HCl 0.1 MG TABLET PO SCH ×4 (01:31→23:27)
[2019-03-31] MEDS: Apixaban 5 MG TABLET PO SCH ×2 (08:16→20:27)
[2019-03-31] MEDS: amLODIPine 5 MG TABLET PO SCH ×2 (08:16→20:28)
[2019-03-31] MEDS: Divalproex Sodium 125 MG CAPSULE PO SCH ×2 (08:16→20:27)
[2019-03-31] MEDS: Finasteride 5 MG TABLET PO SCH (08:17)
[2019-03-31] MEDS: Insulin DETEMIR 100 UNIT/ML X5UNITS SQ SCH ×2 (08:17→20:28)
[2019-03-31] MEDS: *HR* OxyCODONE Immed Rel 5 MG TABLET PO PRN (20:28)
[2019-04-01] MEDS: Ondansetron ODT 4 MG TAB.RAPDIS SL PRN ×2 (03:34→21:02)
[2019-04-01] MEDS: cloNIDine HCl 0.1 MG TABLET PO SCH ×2 (19:35→19:36)
[2019-04-01] MEDS: Insulin DETEMIR 100 UNIT/ML X5UNITS SQ SCH ×2 (19:36→20:54)
[2019-04-01] MEDS: Apixaban 5 MG TABLET PO SCH ×2 (19:36→20:54)
[2019-04-01] MEDS: Divalproex Sodium 125 MG CAPSULE PO SCH ×2 (19:36→20:54)
[2019-04-01] MEDS: amLODIPine 5 MG TABLET PO SCH ×2 (19:37→20:54)
[2019-04-01] MEDS: Finasteride 5 MG TABLET PO SCH (19:38)
[2019-04-01] MEDS: *HR* OxyCODONE Immed Rel 5 MG TABLET PO PRN (21:02)
[2019-04-02] MEDS: cloNIDine HCl 0.1 MG TABLET PO SCH ×4 (00:32→16:46)
[2019-04-02] MEDS: amLODIPine 5 MG TABLET PO SCH ×2 (09:41→19:42)
[2019-04-02] MEDS: Apixaban 5 MG TABLET PO SCH ×2 (09:41→19:42)
[2019-04-02] MEDS: Finasteride 5 MG TABLET PO SCH (09:41)
[2019-04-02] MEDS: Divalproex Sodium 125 MG CAPSULE PO SCH ×2 (09:42→19:42)
[2019-04-02] MEDS: Insulin DETEMIR 100 UNIT/ML X5UNITS SQ SCH ×2 (09:48→19:42)
[2019-04-02] MEDS: *HR* OxyCODONE Immed Rel 5 MG TABLET PO PRN (19:51)
[2019-04-03] MEDS: cloNIDine HCl 0.1 MG TABLET PO SCH ×3 (00:54→16:37)
[2019-04-03 06:07] LABS: Basophils # 0.1 K/mcL (0.0-0.2); Basophils % 1.3 %; Eosinophils # 0.4 K/mcL (0.0-0.6); Eosinophils % 4.5 %; Hematocrit 37.4 % (37.5-50.1); Hemoglobin 12.2 g/dL (12.9-16.9); Immature Granulocytes % 0.3 % (0-4); Lymphocytes # 1.9 K/mcL (0.6-4.6); Lymphocytes % 24.6 %; Mean Corpuscular HGB Conc 32.6 g/dL (31.6-35.5); Mean Corpuscular Volume 92.1 fL (83.0-100.0); Monocytes # 0.9 K/mcL (0.0-1.3); Neutrophils # 4.6 K/mcL (1.6-8.9); Platelet Count 216 K/mcL (140-400); Red Blood Count 4.06 M/mcL (4.19-5.50); Red Cell Distribution Width 13.6 % (11.5-14.5); Segmented Neutrophils % 58.3 %; White Blood Count 7.8 K/mcL (4.3-11.1)
[2019-04-03 06:32] LABS: BUN/Creatinine Ratio 22 (6-26); Blood Urea Nitrogen 27 mg/dL (8-23); Calcium 9.1 mg/dL (8.6-10.3); Carbon Dioxide 29 mEq/L (23-29); Chloride 106 mEq/L (98-107); Glucose 99 mg/dL (70-105); Osmolality,Calculated 295 (280-300); Potassium 4.3 mEq/L (3.5-5.1); Sodium 140 mEq/L (136-145); eGFR For African Americans > 60 (> 60); eGFR For Non-African Americans 57 (> 60)
[2019-04-03] MEDS: amLODIPine 5 MG TABLET PO SCH ×2 (08:16→19:41)
[2019-04-03] MEDS: Apixaban 5 MG TABLET PO SCH ×2 (08:16→19:41)
[2019-04-03] MEDS: Divalproex Sodium 125 MG CAPSULE PO SCH ×2 (08:16→19:41)
[2019-04-03] MEDS: Finasteride 5 MG TABLET PO SCH (08:16)
[2019-04-03] MEDS: Insulin DETEMIR 100 UNIT/ML X5UNITS SQ SCH ×2 (08:17→19:41)
[2019-04-03] MEDS: Ondansetron ODT 4 MG TAB.RAPDIS SL PRN (08:21)
[2019-04-03] MEDS: *HR* OxyCODONE Immed Rel 5 MG TABLET PO PRN ×2 (08:21→19:41)
[2019-04-04] MEDS: cloNIDine HCl 0.1 MG TABLET PO SCH ×3 (01:03→15:57)
[2019-04-04] MEDS: Insulin DETEMIR 100 UNIT/ML X5UNITS SQ SCH ×2 (08:18→20:52)
[2019-04-04] MEDS: Divalproex Sodium 125 MG CAPSULE PO SCH ×2 (08:19→20:51)
[2019-04-04] MEDS: Apixaban 5 MG TABLET PO SCH ×2 (08:19→20:51)
[2019-04-04] MEDS: Finasteride 5 MG TABLET PO SCH (08:19)
[2019-04-04] MEDS: amLODIPine 5 MG TABLET PO SCH ×2 (08:20→20:51)
[2019-04-04] MEDS: *HR* OxyCODONE Immed Rel 5 MG TABLET PO PRN ×2 (08:27→20:51)
[2019-04-05] MEDS: cloNIDine HCl 0.1 MG TABLET PO SCH ×3 (00:25→17:35)
[2019-04-05] MEDS: Ondansetron ODT 4 MG TAB.RAPDIS SL PRN (02:32)
[2019-04-05] MEDS: *HR* OxyCODONE Immed Rel 5 MG TABLET PO PRN ×2 (08:09→21:13)
[2019-04-05] MEDS: Insulin DETEMIR 100 UNIT/ML X5UNITS SQ SCH ×2 (08:09→21:07)
[2019-04-05] MEDS: Finasteride 5 MG TABLET PO SCH (08:10)
[2019-04-05] MEDS: amLODIPine 5 MG TABLET PO SCH ×2 (08:10→21:06)
[2019-04-05] MEDS: Apixaban 5 MG TABLET PO SCH ×2 (08:10→21:07)
[2019-04-05] MEDS: Divalproex Sodium 125 MG CAPSULE PO SCH ×2 (08:10→21:06)
[2019-04-06] MEDS: cloNIDine HCl 0.1 MG TABLET PO SCH ×2 (00:21→09:31)
[2019-04-06 09:30] VITALS: BP 174/72
[2019-04-06] MEDS: amLODIPine 5 MG TABLET PO SCH (09:31)
[2019-04-06] MEDS: Finasteride 5 MG TABLET PO SCH (09:31)
[2019-04-06] MEDS: Divalproex Sodium 125 MG CAPSULE PO SCH (09:32)
[2019-04-06] MEDS: Apixaban 5 MG TABLET PO SCH (09:32)
[2019-04-06] MEDS: Insulin DETEMIR 100 UNIT/ML X5UNITS SQ SCH (09:35)
[2019-04-06] MEDS ORDERED: FLU Vac QV 19-20 (6Month+)/PF 0.5 ML SYRINGE IM ONE (12:59)
== END 2019-04-06 14:07 | DRG 194 ==
LOC: INPPIK 13:46
PROVIDERS: ADMIT Internal Medicine; ATTEND Internal Medicine